=== PATIENT | male | born 1965 | race Caucasian/White ===

== ENCOUNTER → 2022-11-16 | Outpatient (CLI) | payer BC, SELFPAY ==
--- NOTE | 2022-11-16 08:00 | PROSBIL_PTH ---
PATIENT: KARAN WHITE LOC: [facility] U#:[id number] AGE/SX: 57/M ROOM: RE11/16/[address]: Dr. Victor Hugo Antoine MD : 1965 BED: DIS: 11/16/2022 SPEC #: [id number] RECD: 11/16/22 16:32 STATUS: TO BOLIVAR #: [id number] KATELYNN: 11/16/22 08:[address]: Victor Hugo Antoine DEPT: SURGICAL PATHOLOGY RECD BY: Vanessa Ordonez Tissues: A - PROSTATE RIGHT B - PROSTATE RIGHT C - PROSTATE RIGHT D - PROSTATE LEFT E - PROSTATE LEFT F - PROSTATE LEFT Procedures: PROSTATE BX HEADER OPERATION: Prostate biopsy PRE-OP DIAGNOSIS: Elevated PSA TISSUE SUBMITTED: A - Right apex, B - Right mid, C - Right base, D - Left apex, E - Left mid, F - Left base MICROSCOPIC DIAGNOSIS A. Right prostate, apex, core biopsy: Mild chronic inflammation. B. Right prostate, mid, core biopsy: Focal chronic inflammation. C. Right prostate, base, core biopsy: Mild chronic inflammation and focal glandular atrophy. D. Left prostate, apex, core biopsy: Adenocarcinoma. Derrick grade: 6 (3+3) Cores involved: 1 out of 1 core Tissue involved: 80% Greatest tumor length: 8.5 millimeters Perineural invasion: Present, focal E. Left prostate, mid, core biopsy: Minute fragment of benign prostatic tissue. F. Left prostate, base, core biopsy: Mild chronic inflammation and focal glandular atrophy. AM:allyn 11/20/2022 COMMENT Case has been reviewed in consultation with Dr. Loera who concurs with the above diagnosis. IDC:SJ MICROSCOPIC DESCRIPTION Slides are reviewed. GROSS DESCRIPTION A - Received is one container designated prostate, right apex. The specimen consists of two elongated fragments of light hairston-white soft tissue each measuring 1.5 cm in length and 0.1 cm in diameter. The specimen is totally submitted in one cassette. B - Received is one container designated prostate, right mid. The specimen consists of two elongated fragments of light hairston-white soft tissue each measuring 1.2 cm in length and 0.1 cm in diameter. The specimen is totally submitted in one cassette. C - Received is one container designated prostate, right base. The specimen consists of two elongated fragments of light hairston-white soft tissue measuring 1.0 and 1.4 cm in length and 0.1 cm in diameter. The specimen is totally submitted in one cassette. D - Received is one container designated prostate, left apex. The specimen consists of one elongated fragment of light hairston-white soft tissue measuring 1.0 cm in length and 0.1 cm in diameter. The specimen is totally submitted in one cassette. E - Received is one container designated prostate, left mid. The specimen consists of two elongated fragments of light hairston-white soft tissue measuring 0.2 and 0.3 cm in length and <0.1 cm in diameter. The specimen is totally submitted in one cassette. F - Received is one container designated prostate, left base. The specimen consists of two elongated fragments of light hairston-white soft tissue measuring 0.5 and 1.0 cm in length and 0.1 cm in diameter. The specimen is totally submitted in one cassette. / SJ:rg 11/17/2022 TC:0 CPT: 47065 x6
== END | disposition home or self-care (01) ==
LOC: LABSPEC 16:44
PROVIDERS: Referring Provider Urology; Visit Provider Urology
DX: R97.20 Elevated prostate specific antigen [PSA] (principal)
CPT/HCPCS: 88305; G0416

== ENCOUNTER 2023-01-10 11:43 | Observation (INO) | payer BC, SELFPAY ==
--- NOTE | 2023-01-02 07:45 | EKG12_ITS ---
Test Reason : PRE OP Blood Pressure : / mmHG Vent. Rate : 053 BPM Atrial Rate : 053 BPM P-R Int : 164 ms QRS Dur : 120 ms QT Int : 442 ms P-R-T Axes : 069 023 -01 degrees QTc Int : 414 ms Sinus bradycardia Inferior infarct , age undetermined Abnormal ECG Confirmed by JAYMIE RODRIGUEZ ([id number]), advertising editor MARISABEL DOMINGUEZ ([id number]) on 01/08/2023 1:46:35 PM Referred By: Victor Hugo Antoine Confirmed By:JAYMIE RODRIGUEZ
[2023-01-02 08:58] LABS: Hematocrit 44.9 % (40-54); Hemoglobin 15.2 g/dL (13.0-16.5); Mean Corp Hgb Conc 33.9 g/dL (32-36); Mean Corpuscular Hgb 28.8 pg (27.0-32.0); Mean Corpuscular Volume 85.2 fL (80-94); Mean Platelet Vol. 12.6 fl (6.2-12.0); Platelet Count 172 K/mm3 (150-450); RBC Distribution Width CV 12.9 % (11.6-14.6); RBC Distribution Width SD 40.2 fl (35.1-43.9); Red Blood Count 5.27 M/mm3 (4.6-6.2); White Blood Count 4.7 K/mm3 (4.4-11.0)
[2023-01-10] VITALS (13 sets, daily range): BP systolic 100–159; BP diastolic 60–84; PULSE 68–95; RESP 14–18; TEMP 36.3–36.9; O2SAT 94–100; BMI 26.6
[2023-01-10] MEDS: Lactated Ringers 1,000 ML 15 ML IV ×3 (10:19→15:15)
--- NOTE | 2023-01-10 11:45 | PCM.HP.STD ---
HPI - General General Date of Service: 01/10/23 Chief Complaint: Prostate cancer HPI Narrative KARAN WHITE, is a 57 M who presents for radical prostatectomy for prostate cancer PFSH Medical History (Updated 01/10/23 @ 11:[address] Victor Hugo Antoine MD) Non-smoker Wears glasses Home Medications liberty (Zingiber officinalis) 250 mg capsule 250 mg PO DAILY 12/27/22 [History Last Taken Unknown] ginseng 100 mg capsule 100 mg PO DAILY 12/27/22 [History Last Taken Unknown] omega 4-hod-asj-fish oil 1,200 mg (144 mg-216 mg) capsule (Fish Oil) 1 cap PO DAILY 12/27/22 [History Last Taken 12/29/22] ciprofloxacin HCl 500 mg tablet (Cipro) 500 mg PO BID #20 tabs 01/10/23 [Rx Last Taken Unknown] docusate sodium 100 mg capsule (Colace) 100 mg PO BID #20 caps 01/10/23 [Rx Last Taken Unknown] oxycodone 5 mg tablet 5 mg PO Q6H PRN pain 7 days #14 tabs 01/10/23 [Rx Last Taken Unknown] Allergy/AdvReac Type Severity Reaction Status Date / Time No Known Allergies Allergy Verified 01/10/23 10:13 Surgical History (Updated 12/27/22 @ 12:38 by Yoli Fraser) History of colonoscopy Social History Smoking Status: Never smoker Vital Signs Vital Signs Vital Signs: 01/10/23 10:14 01/10/23 10:14 Temperature 98 F Temperature Source Temporal Pulse Rate 77 Respiratory Rate 16 Respiratory Pattern Normal Blood Pressure 159/84 H Blood Pressure Mean 109 Blood Pressure Source Monitor Blood Pressure Position Semi-Fowlers Blood Pressure Location Left Arm Pulse Ox 100 Oxygen Delivery Method Room Air Weight Weight: 89 kg Body Mass Index (BMI) 26.6 Results Lab / Micro Data 01/02/23 07:57
--- NOTE | 2023-01-10 11:46 | PCM.DC ---
Discharge Instructions Diet Discharge Diet: No restrictions, Light diet - advance as tolerated and Soft diet Activity Discharge Activity: Return to Normal Activity Return to work on:: 02/14/23September shower in (days): 1 Lifting Restrictions: No lifting over 15 pounds for 6 weeks Dressing / Incision Catheter: Anglin to leg bag and Anglin to large bag Drain: [place] Follow Up Care Please Follow Up With: Victor Hugo Antoine MD When: call for appt Test Results: Test results from this visit will be discussed in further detail at your follow-up appointment, if applicable. Discharge Plan Admission Primary Reason for Your Visit: Radical Prostatectomy Attending Provider: Victor Hugo Antoine Primary Care Provider: Horacio Clark NP Discharge Orders/Prescriptions Prescriptions: New ciprofloxacin HCl [Cipro] 500 mg tablet 500 mg PO BID Qty: 20 0RF docusate sodium [Colace] 100 mg capsule 100 mg PO BID Qty: 20 0RF oxycodone 5 mg tablet 5 mg PO Q6H PRN (Reason: pain) 7 Days Qty: 14 0RF Continued omega 5-ryw-voj-fish oil [Fish Oil] 1,200 (144-216) mg capsule 1 cap PO DAILY liberty (Zingiber officinalis) 250 mg capsule 250 mg PO DAILY ginseng 100 mg capsule 100 mg PO DAILY Other Ambulatory Orders: 12 Lead EKG (Routine) Timeframe: 20230102 Location: None Selected Ordered By: Dr. Octaviano Walker Referrals / Follow Up: Victor Hugo Antoine MD [Med Staff - Active Staff] - Disposition Disposition (needs filled in before D/C Order can be placed): Home, Self Care
[2023-01-10] MEDS: Cefazolin 2 GM in 0.9% Normal Saline 100 ML IV (11:50)
--- NOTE | 2023-01-10 11:55 | PROST_PTH ---
PATIENT: KARAN WHITE LOC: [facility] U#:[id number] AGE/SX: 57/M ROOM: [facility] [place] RE01/10/[address]: Dr. Victor Hugo Antoine MD : 1965 BED: 1 DIS: 01/11/2023 SPEC #: [id number] RECD: 01/11/23 08:06 STATUS: TO BOLIVAR #: [id number] KATELYNN: 01/10/23 11:[address]: Victor Hugo Antoine DEPT: SURGICAL PATHOLOGY RECD BY: Vanessa Ordonez ENTERED: 01/11/23 10:31 SP TYPE: PROSTATE OTHR DR: Horacio Clark, FACILITY SPECIALIST-C Tissues: A - Fatty tissue of breast B - Lymph node of pelvis, NOS C - Lymph node of pelvis, NOS D - Prostate, NOS Procedures: Surgery Specimen Level IV Surgery Specimen Level V Surgery Specimen Level HEADER OPERATION: Laparoscopic robotic radical prostatectomy PRE-OP DIAGNOSIS: Elevated prostate specific antigen, malignant neoplasm of prostate TISSUE SUBMITTED: A. Fat over prostate, B. Left pelvic lymph node, C. Right pelvic lymph node, D. Prostate MICROSCOPIC DIAGNOSIS A. Fat over prostate: Negative for carcinoma. B. Left pelvic lymph nodes, regional dissection: Four out of four lymph nodes, negative for metastatic carcinoma. C. Right pelvic lymph node, regional dissection: One lymph node, negative for metastatic carcinoma. D. Prostate, radical prostatectomy: Prostatic adenocarcinoma. See cancer summary in the comment section. SJ:allyn 01/15/2023 COMMENT PROSTATE CANCER (RADICAL) SUMMARY: Procedure: Radical Prostatectomy Prostate Size: Weight: 48.9 gm Size: 3.5 cm transversely, 3.5 cm anterior-posteriorly and 4.0 cm craniocaudally Histologic Type: Acinar adenocarcinoma Histologic Grade: Grade group 2 (Derrick score 3+4=7) Intraductal Carcinoma: Present Tumor Quantitation: Estimated percentage of prostate involved by tumor: ~20% Tumor size: Tumor involves both right and left lobe. The tumor in the right lobe is present predominantly in the apical portion and measures 0.7 x 0.7 cm (measured microscopically) and tumor in the left lobe present in the apical and mid portion of the prostate and measures 2.0 x 0.8 cm (measured microscopically). Extraprostatic Extension: Not identified Urinary Bladder Neck Invasion: Not identified Seminal Vesicle Invasion: Not identified Lymphvascular Invasion: Not identified Perineural Invasion: Present and frequent Margins: Involved by invasive carcinoma (nonlimited, 1.0 cm). Linear length of positive margin: 1.0 cm Focality: Unifocal Location of positive margin: Left apical Derrick pattern at positive margin: Derrick pattern 3 Treatment Effect: No known presurgical therapy. Regional Lymph Nodes: Number of lymph nodes involved by carcinoma: 0 Total number of lymph nodes examined: 5 Distant metastasis: Not applicable Additional Pathologic Findings: Chronic inflammation. 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 Clinical History: Please make reference to previous specimen ([id number]) left prostate, apex, core biopsy with diagnosis of adenocarcinoma. PATHOLOGIC STAGE: pT2 pN0 pMx The above summary is in compliance with [employer] [place] [employer] (CAP) Cancer Protocols Checklist and [place] Joint Committee on Cancer (AJCC), Staging Manual, 8th Ed. MICROSCOPIC DESCRIPTION Slides are reviewed. GROSS DESCRIPTION A - Received is one container labeled with the patient's name and designated fat over prostate. The specimen of a piece of adipose tissue measuring 3.0 x 3.5 x 0.5 cm. No mass lesion is identified. Surgical Aides Teacher sections are submitted in one cassette. B - Received is one container labeled with the patient's name and designated left pelvic lymph node. The specimen consists of two pieces of adipose tissue containing possible lymph node that in aggregate measure 5.0 x 3.0 x 1.0 cm. The entire specimen is submitted in four cassettes as follows: 1 - possible bisected lymph node, 2 - two possible lymph nodes, 3 - one possible lymph node, 4 - rest of the specimen. C - Received is one container labeled with the patient's name and designated right pelvic lymph node. The specimen consists of a piece of adipose tissue containing one possible lymph node measuring 4.0 x 2.0 x 1.0 cm. The entire specimen is submitted in two cassettes as follows: 1 - possible bisected lymph node, 2 - rest of the specimen. D - Received in fixative is one container labeled with the patient's name and designated prostate. The specimen consists of a radical prostatectomy specimen consisting of prostate and bilateral seminal vesicles and vas deferens. The specimen weighs 48.9 gm. The prostate measures 3.5 cm transversely, 3.5 cm anterior-posteriorly and 4.0 cm craniocaudally. The right seminal vesicle measures 2.5 x 1.5 x 1.0 cm and right vas deferens measures 2.5 cm in length and 0.5 cm in diameter. The left seminal vesicle measures 3.0 x 1.0 x 1.0 cm and the left vas deferens measures 3.0 cm in length and 0.5 cm in diameter. The prostate is inked as follows: anterior surface - yellow, posterior surface - black, right lateral surface - blue, left lateral surface - green. The bilateral seminal vesicles and vas deferens are inked as follows: Posterior surface bilateral seminal vesicle and vas deferens - black, anterior surface right seminal vesicle and vas deferens - blue and anterior left seminal vesicle and vas deferens - green. Surgical Aides Teacher sections are submitted in 19 cassettes as follows: 1 - right seminal vesicle and vas deferens, 2 - left seminal vesicle and vas deferens, 3 - apical (urethral) margin, enface, 4 - bladder neck margin and basal portion of prostate margin, enface, 6-9 - apical portion prostate, 10-13 - middle portion prostate, 14-19 - basal portion prostate. More than 95% of the prostate is submitted. / SJ:rg 01/12/2023 TC:0 CPT:21498, 12402 x2, 02936
[2023-01-10] MEDS: Bupivacaine Mpf 0.5% 30 ML VIAL (12:00)
--- NOTE | 2023-01-10 14:35 | PCM.OPRPT ---
Report of Operation Date of Procedure: 01/10/23 Pre-Operative Diagnosis: Prostate cancer Post-Operative Diagnosis: Same Surgery/Procedure Performed:: Laparoscopic robotic assisted radical prostatectomy bilateral pelvic lymph node dissection Description of Surgical Findings:: Patient presented to the hospital for treatment of his prostate cancer with radical prostatectomy. In the preoperative setting we discussed the options of management for his prostate cancer including active surveillance, radiation treatments, radioactive seeds, and radical robotic prostatectomy. We discussed the side effects of surgery including the potential to lose erections. We discussed the potential to have bladder control problems with stress incontinence which can be temporary or permanent. We discussed the risk of the surgery including the risk of general anesthetic, risk of bleeding, risk of infection, and risk of formation of hernia either incisional hernia or inguinal hernia. After long discussion with the patient the preoperative setting and also reviewed this in the preop area patient signed the consent form and we proceeded with a radical prostatectomy. Patient was taken back to the operating room he was identified, time out procedure was performed and he was placed supine on the table he underwent general anesthesia with intubation. The abdomen was shaved prepped and draped in usual sterile fashion as well as the penis and testicles. A 16 Macedonian catheter was placed into the bladder with clear return of urine. I then made an incision in the umbilicus and dissected down to the fascia advance a Veress needle into the peritoneal cavity and insufflated the peritoneal cavity with CO2 gas. I then placed a 12 mm trocar above the umbilicus. I then visualized the placement of the rest of the trochars, I placed a right arm robotic trocar, and air seal trocar, a suction port 5 mm trocar. And on the left side I placed 2 robotic arms. Once all the trochars were in placed the patient was put in steep Trendelenburg. And the robot was docked the arms were docked and then I placed the 0 degree camera through the robotic arm and also used a 30 degree camera during certain parts of the case. I used scissors in the right arm, prograsp in the third arm, and a bipolar in the second arm. Initial dissection was to free the sigmoid colon off the lateral wall this was done by meticulously dissecting off the peritoneum and the sigmoid colon off the left lateral wall. This then allowed the prograsp to retract the sigmoid colon out of the pelvis. I then went below the bladder and identified the vas deferens incised the peritoneum over the vas deferens and traced the vas deferens below the bladder to the prostate and identified the right and left vasa deferens. Below behind the vas deferens then the seminal vesicles were identified. I then dissected the seminal vesicle free using pinpoint electrocautery and then we identified the other seminal vesicle and then dissected this using pinpoint electrocautery I then elevated the vas deferens and several vesicles off the prostate and was able to sweep the Denonvilliers' fascia off the prostate posteriorly all the way up to the apex of the prostate. Working laterally I made sure I went as lateral as possible to sweep the Denonilliers' fascia off the posterior aspect of the prostate and worked my way back, I then transected the vas deferens and the left and right side the seminal vesicles were then dissected free. And then I pulled out of the pelvis. At this point the bladder was dropped creating the space of Retzius with the bladder on traction with the fourth arm. Using electrocautery I dissected in the anterior peritoneal fascia and then created the space of Retzius dissecting towards the prostate. The pelvic lymph node dissection was then performed both side. Rhe right pelvic lymph nodes the nodes that were taken on the right side extended from the right iliac artery lateral pelvic sidewall up to the junction of the artery and the lymph nodes and down to the obturator nerve and then also below the pump operator nerve all the lymph nodes were removed during to remove those lymph nodes we used clips and electrocautery to control small blood vessels and also the control lymphatic. I then went to the left side and again did an extensive lymph node dissection starting of the left iliac artery extending the left iliac vein on the lateral sidewall down to the obturator nerve and the left side beyond the pump operator nerve down further behind it cleaning out all the lymphatic tissue all this tissue was sent off as a specimen we use clips and electrocautery during the dissection. At the end we cleaned out all the lymphatic tissue on the right pelvic wall and all the lymphatic tissue in the left pelvic wall. The prostate was then cleaned of the fat over the prostate and the fourth arm was used to retract the bladder and place traction. I then identified the endopelvic fascia that was overlying the prostate on the right side I incised endopelvic fascia and wwept the levator muscles off the prostate all the way to the apex on the right side, I then worked my way anterior to the prostate then transected to the puboprostatic ligament and the underlying dorsal vein complex was not injured. I then went to the other side and identified the endopelvic fascia in the left side incised in a fashion the left side and swept the levator muscles off the prostate on the left side all the way up to the apex the puboprostatic ligament on the left side was then dissected and transected I then freed up the fascia overlying the dorsal vein complex. I then used the prograsp to encircled the dorsal vein complex with the prograsp and then switched over to the right and left needle medical delivery driver and suture ligated the dorsal vein complex above the prograsp. The prograsp was then placed back in the bladder and put back on traction I then identified the junction between the bladder and the prostate and dissected down between the bladder and the prostate untilI came across the catheter we then dissected posteriorly to the bladder and prostate to free the prostate and the bladder off each other and the muscles between the bladder and the prostate was then cauterized to free up the bladder. I then went on top of the prostate and identified the endopelvic fascia on top of the prostate this was incised all the way to the apex and then we swept the endopelvic fascia off the prostate laterally and then identified the plane between endopelvic fascia and the prosthetic pseudocapsule and swept the fascia laterally until reaching the course of the neurovascular bundles and then released the neurovascular bundles off the prostate laterally all the way back in a retrograde fashion back to the junction of the pedicles then the prostate was placed on traction with the fourth arm pulling the prostate laterally identified the pedicle to the prostate between the seminal vesicles and the and the neurovascular bundle and this was taken using sequential small hemolocks. After the pedicle was taken the I then dissected underneath the prostate sweeping the neurovascular bundle off the prostate we able to follow the nice smooth plane between the neurovascular bundle and the pseudocapsule all the way to the apex once this was identified we swept this up all the way up to the apex and there was perfect nerve sparing on the right side. Then went to the left side the prostate identified the endopelvic fascia over the left side of the prostate I incised the endopelvic fascia all the way to the apex and then swept this off laterally I then released the neurovascular bundles on the left side of the prostate sweeping him off the prostate laterally I then elevated the prostate up up with the prostate and traction identified the pedicle to the prostate on the left side and then the pedicles taken with sequential Hem-o-francy clips I then was able to dissected the neurovascular bundle off the left posterior aspect the prostate this was a perfect dissection all the way up on the left side following the pseudocapsule all the way up the left side until we reached the apex of the prostate. After the both the neurovascular bundles has been swept off the posterior to the prostate I then went above and transected the dorsal vein complex there was minimal to no bleeding but then dissected down to the urethra and circumfencial dissected around the urethra I then switched the right and left arm with the needle drivers and I suture-ligated the dorsal vein complex again just to ensure that there was no bleeding from the dorsal vein complex. I then transected through the urethra with scissors and the prostate was then freed and released off the prostate bed and put an Endo Catch bag. At this point the bladder neck was reconstructed and then an anastomosis was performed between the prostate and the bladder with a 3 oh V-Loc stitch in a running fashion starting from the bladder neck at the 6 o'clock position working to the 12 o'clock position with continuous stitches to complete a perfect anastomosis between the bladder and the prostate. I then placed a new catheter into the bladder, an 18 Macedonian table mountain tip catheter flushed the bladder and there was no leakage from the anastomosis I put 10 cc in the balloon and pulled it up pulled back gently. I then ensured that there was no bleeding from the dorsal vein complex no bleeding from the neurovascular bundles FloSeal was placed as necessary once hemostasis was ensured and adequate then I placed the bladder back in position in the pelvis the prostate was exchanged to the camera port I closed the air seal port with a 10 12 Cyrus Casas stitch. And the extracted the prostate through the umbilicus. The robot was undocked all the ports were removed under direct visualization then closed the extraction site with 0 Vicryl with a CT1 needle once the extraction site was closed. I then closed all the incision with subcuticular stitches with 4-0 Monocryl and then bandages were placed on the incisions catheter was flushed to make sure it was draining well there was no clots and it was crystal clear patient's anesthetic was reversed he was extubated and taken back to the PACU in stable condition all the needles and sponges and instruments were accounted for. Blood loss was minimal and the drain was a 18 Macedonian Anglin catheter. No other surgical drain was left. I was present during the entire case. Surgeon: Victor Hugo Antoine Type of Anesthesia: General Estimated Blood Loss (mL): 100 Admit VTE Documentation VTE Present on Admission: No VTE Mechan Device Prophylaxis: SCD's VTE Pharm Prophylaxis ordered?: No
[2023-01-10] MEDS: Ketorolac 15 MG/ML Vial IV ×2 (17:25→23:18)
[2023-01-10] MEDS: 0.9% Normal Saline 1,000 ML 125 ML IV (17:25)
[2023-01-10] MEDS: Ciprofloxacin 400 MG/200 ML BAG 200 MG IV (21:05)
[2023-01-10] MEDS: Docusate Sodium 100 MG Capsule 200 MG PO (21:05)
[2023-01-11 01:21] VITALS: BP 108/63; PULSE 76; RESP 16; TEMP 37.1; O2SAT 96
[2023-01-11] MEDS: 0.9% Normal Saline 1,000 ML 125 ML IV ×2 (01:22→05:15)
[2023-01-11 05:05] VITALS: BP 108/63; PULSE 73; RESP 18; TEMP 36.7; O2SAT 96
[2023-01-11] MEDS: Ketorolac 15 MG/ML Vial IV ×2 (05:39→10:18)
--- NOTE | 2023-01-11 07:42 | PCM.PN.GU ---
Subjective Subjective Status post radical prostatectomy patient is doing well he can go home today with a Anglin catheter to leg bag Objective Data Objective Data Vital Signs: Vital Signs Temp Pulse Resp BP Pulse Ox O2 Del Method 98.1 F 73 18 108/63 96 Room Air 01/11/23 05:05 01/11/23 05:05 01/11/23 05:05 01/11/23 05:05 01/11/23 05:05 01/11/23 05:05 Oxygen Delivery Method Room Air Weight: 89 kg Body Mass Index (BMI) 26.6 Intake & Output: Intake and Output for Last 24 Hours 01/09/23 01/10/23 01/11/23 23:59 23:59 23:59 Intake Total 2535 / 2535 1599.17 / 1599.17 Output Total 400 / 1000 1100 / 1100 Balance 2135 / 1535 499.17 / 499.17 Lab / Micro Data 01/02/23 07:57
[2023-01-11 08:43] VITALS: O2SAT 96
[2023-01-11 08:49] VITALS: BP 118/74; PULSE 73; RESP 18; TEMP 37.1; O2SAT 95
[2023-01-11] MEDS: Docusate Sodium 100 MG Capsule 200 MG PO (08:54)
[2023-01-11] MEDS: Ciprofloxacin 400 MG/200 ML BAG 200 MG IV (10:18)
[2023-01-11] MEDS: 0.9% Saline Lock 10 ML Syringe IV (10:18)
--- NOTE | 2023-01-11 12:15 | PHA.DC.MC.R ---
Pharmacy [facility] Pharmacy Service has performed discharge medication reconciliation and counseling for this patient. The patient was counseled on the following discharge medications and changes in medications for homegoing were reviewed. 1. CIPRO 2. OXYCODONE 3. DOCUSATE The Reason for Use, instructions for use, and potential side effects were reviewed for all new medications. The patient's questions regarding all of their medications were answered. The patient was able to verbally demonstrate an understanding of their discharge medications. The patient's discharge medication list was reviewed for discrepancies and discrepancies were resolved. The patient was counselled by Annette Ca, Juan Luis Candidate Medications at Discharge Home Medications liberty (Zingiber officinalis) 250 mg capsule 250 mg PO DAILY 12/27/22 ginseng 100 mg capsule 100 mg PO DAILY 12/27/22 omega 7-wpd-ctl-fish oil 1,200 mg (144 mg-216 mg) capsule (Fish Oil) 1 cap PO DAILY 12/27/22 ciprofloxacin HCl 500 mg tablet (Cipro) 500 mg PO BID #20 tabs 01/10/23 docusate sodium 100 mg capsule (Colace) 100 mg PO BID #20 caps 01/10/23 oxycodone 5 mg tablet 5 mg PO Q6H PRN pain 7 days #14 tabs 01/10/23
== END 2023-01-11 13:19 | disposition home or self-care (01) ==
LOC: SDC 15:55 → MS3 15:55
PROVIDERS: Anesthesiology; Admitting Provider Urology; PCP Nurse Practitioner Primary Care; Referring Provider Urology; Visit Provider Urology
PROC: 0VT04ZZ Resection of Prostate, Percutaneous Endoscopic Approach (ICD-10-PCS; CPT 55866; principal; 2023-01-10 11:35)
DX: C61 Malignant neoplasm of prostate (principal)
CPT/HCPCS: 55866; 00865; 36415; 85027; 86850; 86900; 86901; 88305; 88307; 88309; 93005; 94668; 96361; 96365; 96366; 96375; 96376; 99221; J7030; J7120; A4216; G0378; J0744; J2405

== ENCOUNTER → 2023-02-26 | Outpatient (CLI) | payer BC, SELFPAY ==
[2023-02-26 17:25] LABS: PSA,Total- Diagnostic 0.02 ng/mL (0.0-4.0)
== END | disposition home or self-care (01) ==
LOC: LAB 15:26
PROVIDERS: PCP Nurse Practitioner Primary Care; Referring Provider Nurse Practitioner; Visit Provider Nurse Practitioner
DX: C61 Malignant neoplasm of prostate (principal)
CPT/HCPCS: 36415; 84153

== ENCOUNTER → 2023-05-28 | Outpatient (CLI) | payer BC, SELFPAY ==
--- OUTSIDE RECORDS SUMMARY | 2023-05-28 12:44 | XMS RPT_ITS | CCD ---
Author Name Unknown Address Formerly [facility], [facility] [place] [address] Organization [facility] Care Team Providers Care Medical Service Technician Name Role Phone Roberto Aguilar Unavailable Unavailable BALTES SUPERVISOR OVENS-FIRE ALARM INSPECTOR, DEONTE Primary Care Physician [phone] ROBERTO AGUILAR Attending Unavailable ROBERTO AGUILAR Primary Care Unavailable BALTES SUPERVISOR OVENS-FIRE ALARM INSPECTOR, DEONTE Attending Unavailabl e BALTES SUPERVISOR OVENS-FIRE ALARM INSPECTOR, DEONTE Primary Care Unavailabl e BALTES SUPERVISOR OVENS-FIRE ALARM INSPECTOR, DEONTE Attending Unavailabl e BALTES SUPERVISOR OVENS-FIRE ALARM INSPECTOR, DEONTE Primary Care Unavailabl e Allergies Allergy Classification Reported Allergen(s) Allergy Type Date of Onset Reaction(s) Facility (1 source) ALLERGIES NOT ON FILE; Translations: [ALLERGIES NOT ON FILE] Propensity to adverse reactions (disorder) [facility] 3 Repository Medications Current Medications Medication Drug Class(es) Dates Sig (Normalized) Sig (Original) aspirin 81 mg delayed release oral tablet (1 source) Platelet Aggregation Inhibitor, Nonsteroidal Anti-inflammatory Drug Start: 10-12-2020 aspirin 81 mg oral delayed release tablet Dose : 81 mg = 1 tab(s), Oral, qDay, PRN just because, # 30 tab(s), 0 Refill(s) Start Date: 10/12/20 Status: Ordered Beta Sitosteril (1 source) Start: 10-13-2020 Beta Sitosteril Beta Sitosteril, Daily, NOW-2000 mg, 0 Refill(s), 104.7 Start Date: 10/13/20 Status: Ordered Billberry & Lutein (1 source) Start: 10-13-2020 Billberry & Lutein Billberry & Lutein, 0 Refill(s), 104.7 Start Date: 10/13/20 Status: Ordered Cinnamon Preparation (1 source) Non-Standardized Food Allergenic Extract Start: 10-13-2020 take 1 tablet by mouth once daily Cinnamon 1000 mg capsule 1 tab(s), Oral, Daily, 0 Refill(s) Start Date: 10/13/20 Status: Ordered Echinacea Preparation (2 sources) Start: 10-13-2020 echinacea Daily, PRN blend, 990 mg, 0 Refill(s) Start Date: 10/13/20 Status: Ordered Completed/Discontinued Medications Medication Drug Class(es) Dates Sig (Normalized) Sig (Original) ascorbic acid 1000 mg oral tablet (1 source) Vitamin C take 2 tablets by mo uth once daily Vitamin C 1000 MG Oral Tablet TAKE 2 TABLET Daily Refills: 0 Active bee pollen 550 mg oral capsule (1 source) Bee Pollen 550 M G Oral Capsule Refills: 0 Active Ginseng CAPS (1 source) Ginseng CAPS CEASAR E 1 CAPSULE Daily 60-120 mg Refills: 0 Active Multiple Vitamins Oral Tablet (1 source) Multiple Vitamin s Oral Tablet Refills: 0 Active Marty 3 500 CAPS (1 source) Marty 3 500 CAPS Refills: 0 Active Super B Complex TABS (1 source) Super B Complex TABS TAKE 1 TABLET DAILY DIRECTED. Refills: 0 Active Problems Active Problems Problem Classification Problem Date Documented Da te Episodic/Chronic Diabetes mellitus without complication (1 source) Prediabetes; Translations: [Other abnormal glucose] Episodic Disorders of lipid metabolism (3 sources) Hyperlipidemia; Translations: [Other and unspecified hyperlipidemia] Onset: 03-30-2023 Chronic Other screening for suspected conditions (not mental disorders or infectious disease) (2 sources) Elevated prostate specific antigen [PSA]; Translations: [ELEVATED PROSTATE SPECIFIC ANTIGEN (PSA)] Onset: 03-30-2023 Episodic Residual codes; unclassified (1 source) History finding; Translations: [Other specified conditions influencing health status] Episodic Unclassified (1 source) Patient encounter status 11-23-2020 Past or Other Problems Problem Classification Problem Date Documented Da te Episodic/Chronic NEGATED: Highlighted row has not occurred!Residual codes; unclassified (1 source) Disease Episodic Results Test Name Value Interpretation Reference Range Facil ity Encounters Encounter Date Encounter Type Care Provider Facility Start: 03-30-2023 End: [facility] Start: 03-30-2023 End: 04-04-2023 Encounter for general adult medical examination without abnormal [facility] Start: 03-27-2023 End: 03-27-2023 ambulatory [facility] Ambulatory Start: 09-16-2022 End: 09-17-2022 ambulatory DEONTE HESS Facility:B Start: 09-16-2022 End: 09-16-2022 Patient encounter procedure DEONTE HESS [facility] Payers Date Payer Category Payer Unknown [id number] 1965 Unknown [id number] 1965 Unknown [id number] Social History Date Type Detail Facility Start: 10-12-2020 Tobacco smoking status Never smoked tobacco (finding) [facility] Sex Assigned At Male [facility] NEGATED: Highlighted row - - [facility] Work Phone: Functional Status Date Assessment Result Facility NEGATED: Highlighted row Functional performance Functional status health issues are not documented Disease [facility] Work Phone: Mental Status Date Assessment Result Facility NEGATED: Highlighted row Cognitive function [Interpretation] Cognitive status health issues are not documented Disease [facility] Work Phone: Evaluation + Plan note Note Date & Type Note Facility Evaluation + Plan note Future Appointments Appointment Date:09/26/2022 07:00:00 AM Scheduled Provider:DEONTE BELLE Location:[facility] Appointment Type:PC Wellness Annual [facility] Hospital course Narrative Note Date & Type Note Facility Hospital course Narrative No data available for this section [facility] Hospital Discharge instructions Note Date & Type Note Facility Hospital Discharge instructions No data available for this section [facility] Instructions Note Date & Type Note Facility -[facility] Work Phone: Progress note Note Date & Type Note Facility Progress note No data available for this section [facility] Summary Purpose Family History No Family History Records Found Mother Name Dates Details Family history of Healthy ad ult Status:Active Father Name Dates Details Family history of diabetes rosmery terrell(V18.0, Z83.3) Status:Active Advance Directives No Advanced Directives Records FoundNo Advanced Directives Records FoundNo Advanced Directives Records Found Additional Source Comments (unrecognized sect ion and content) No Status Records FoundNo Status Records FoundNo Status Records Found INFORMATION SOURCE (unrecogn ized section and content) DATE CREATED AUTHOR AUTHOR'S ORGANIZ ATION 03/28/2023 [facility] DATE CREATED AUTHOR AUTHOR'S ORGANIZ ATION 04/09/2023 [facility] ([place]) Patient Care team informatio n (unrecognized section and content) Care Team Personnel Name: DEONTE BELLE APRN-DIEGO Position: P4 Advanced Process Design Engineer Member Role: Primary Care Physician Address: Address: [address] [facility] [address] Care Team Related Persons Name: CHRISTOPHER JACOBO FOR RECORDS PERTAINING TO PATIENTS WHO ARE OR HAVE BEEN ENROLLED IN A CHEMICAL DEPENDENCY/SUBSTANCEABUSE PROGRAM, SOME INFORMATION MAY BE OMITTED. This clinical summary was aggregated from multiple sources. Caution should be exercised in using it in the provision of clinical care. This summary normalizes information from multiple sources, and as a consequence, information in this document may materially change the coding, format and clinical context of patient data. In addition, data may be omitted in some cases. CLINICAL DECISIONS SHOULD BE BASED ON THE PRIMARY CLINICAL RECORDS. [facility]. provides no warranty or guarantee of the accuracy or completeness of information in this document.
[2023-05-28 13:49] LABS: PSA,Total- Diagnostic 0.02 ng/mL (0.0-4.0)
== END | disposition home or self-care (01) ==
LOC: LAB 12:35
PROVIDERS: PCP Nurse Practitioner Primary Care; Referring Provider Urology; Visit Provider Urology
DX: C61 Malignant neoplasm of prostate (principal)
CPT/HCPCS: 36415; 84153

== ENCOUNTER → 2023-09-25 | Outpatient (CLI) | payer BC, SELFPAY ==
[2023-09-25 09:19] LABS: PSA,Total- Diagnostic 0.04 ng/mL (0.0-4.0)
== END | disposition home or self-care (01) ==
LOC: LAB 07:55
PROVIDERS: PCP Nurse Practitioner Primary Care; Referring Provider Urology; Visit Provider Urology
DX: C61 Malignant neoplasm of prostate (principal)
CPT/HCPCS: 36415; 84153

== ENCOUNTER → 2024-03-28 | Outpatient (CLI) | payer BC, SELFPAY ==
[2024-03-28 10:51] LABS: PSA,Total- Diagnostic 0.13 ng/mL (0.0-4.0)
== END | disposition home or self-care (01) ==
LOC: LAB 08:52
PROVIDERS: PCP Nurse Practitioner Primary Care; Referring Provider Nurse Practitioner; Visit Provider Nurse Practitioner
DX: C61 Malignant neoplasm of prostate (principal)
CPT/HCPCS: 36415; 84153

== ENCOUNTER → 2024-05-08 | Outpatient (CLI) | payer BC, SELFPAY ==
--- NOTE | 2024-05-08 12:56 | MRI_ITS ---
STUDY: MR PROSTATE GLAND/ PELVIS WITH T WITHOUT CONTRAST REASON FOR EXAM: Male, 59 years old. eval for prostate cancer recurrence -- positive apical margin at surgery, H/O PROSTATECTOMY TECHNIQUE: Standardized fat and water weighted pulse sequences were obtained in all 3 orthogonal planes, pre-and post contrast administration. IV 17cc clariscan was administered for the contrast portion of the examination. COMPARISON: PET/CT exam dated April 15, 2024. FINDINGS: Prostate gland volume/size: Prior prostatectomy. No visualized recurrent mass or cyst or fluid collection or lymphadenopathy in the surgical bed or adjacent pelvic regions. Seminal vesicles: Normal fluid signal bilaterally. Pelvic sidewall lymphadenopathy: None demonstrated. Bony structures: No lytic or blastic or aggressive process. No demonstrated enhancing lesions. No bone marrow edema or infiltrative marrow replacement process is seen. No visualized pathologic fractures. Bladder: No demonstrated masses or filling defects/stones. Normal urinary bladder. Normal visualized small intestine. Normal visualized colon. Vessels: No significant or large aneurysm is demonstrated. Normal osseous structures. Normal abdominal wall. Small bilateral fat-containing inguinal hernias are present. MRI/Pelvis W/WO Contrast IMPRESSION: 1. No demonstrated recurrent mass or cyst or fluid collection or lymphadenopathy in the prostate surgical bed or pelvic regions. 2. PI-RADS 1: very low (clinically significant cancer is highly unlikely to be present) 3. Prostate PET/CT exam can also be performed to determine if there is viable malignant neoplasm in the prostate gland. Prostate MRI reference: 15-30% of prostate cancers can go undetected on Prostate MRI. Monitoring and assessment by Primary physician, Urology, and oncology service recommended and treated clnically. (Cancers (Basel). 2022May 02;15(90):1543. doi: [id number] Prostate Cancers Invisible on Multiparametric MRI: Pathologic Features in Correlation with Whole-Mount Prostatectomy Zack Maza 1,2,*, Kin Andrews 3, Divine Arriaga 1,2, Caridad Helms 1,2, Gutierrez Mathew 4, Florentino Ricardo 5, Syeda Moreira 6, Ankit Singh 1,2, Slime Montalvo 1,2) Reference information: Normal prostate tissue Benign prostatic hypertrophy cancer/tumor - low signal peripheral , transitional, and central zones malignancy appears as bright on DWI and low signal on ADC map Prostate imaging-reporting and data system (PI-RADS) PI-RADS 1: very low (clinically significant cancer is highly unlikely to be present) PI-RADS 2: low (clinically significant cancer is unlikely to be present) PI-RADS 3: intermediate (the presence of clinically significant cancer is equivocal) PI-RADS 4: high (clinically significant cancer is likely to be present) PI-RADS 5: very high (clinically significant cancer is highly likely to be present) PI-RADS X: component of exam technically inadequate or not performed Prostate malignancy distribution: Peripheral zone: 70-80% Transitional zone: 10-20% Central zone: 5% or less Electronically Signed: August Sanderson MD at 9:23 EST ,
== END | disposition home or self-care (01) ==
LOC: MRI 12:43
PROVIDERS: PCP Nurse Practitioner Primary Care; Referring Provider Student in an Organized Health Care Education/Training Program; Visit Provider Student in an Organized Health Care Education/Training Program
DX: C61 Malignant neoplasm of prostate (principal); Z19.1 Hormone sensitive malignancy status; R97.21 Rising PSA following treatment for malignant neoplasm of prostate
CPT/HCPCS: 72197; A9575; A4216

== ENCOUNTER → 2024-08-18 | Outpatient (CLI) | payer BC, SELFPAY ==
[2024-08-18 13:21] LABS: PSA,Total- Diagnostic 0.04 ng/mL (0.00-4.00)
== END | disposition home or self-care (01) ==
LOC: LAB 12:04
PROVIDERS: PCP Nurse Practitioner Primary Care; Referring Provider Urology; Visit Provider Urology
DX: C61 Malignant neoplasm of prostate (principal)
CPT/HCPCS: 36415; 84153

== ENCOUNTER → 2024-11-14 | Outpatient (CLI) | payer BC, SELFPAY ==
[2024-11-14 11:35] LABS: PSA,Total- Diagnostic < 0.02 ng/mL (0.00-4.00)
--- OUTSIDE RECORDS SUMMARY | 2024-11-14 16:31 | XMS RPT_ITS | CCD ---
Author Organization [facility] Care Team Providers Care Case Managers Name Role Phone Jaydon Aguilar Unavailable Unavailable BALTES RN BUILDING-METAL MINER BLASTING, DEONTE Primary Care Physician [phone] Baltes MULTI SITE LEASING CONSULTANT, MULTI SITE LEASING CONSULTANT-C Deonte Primary Care Provider [phone] Dr. Michelle Rizzo Attending Provider Dr. Victor Hugo Antoine Referring Provider JAYDON AGUILAR Attending Unavailable JAYDON AGUILAR Primary Care Unavailable BALTES RN BUILDING-METAL MINER BLASTING, DEONTE Attending Unavailabl e BALTES RN BUILDING-METAL MINER BLASTING, DEONTE Primary Care Unavailabl e BALTES RN BUILDING-METAL MINER BLASTING, DEONTE Attending Unavailabl e BALTES RN BUILDING-METAL MINER BLASTING, DEONTE Primary Care Unavailabl e BALTES RN BUILDING-METAL MINER BLASTING, DEONTE Attending Unavailabl e BALTES RN BUILDING-METAL MINER BLASTING, DEONTE Primary Care Unavailabl e Baltes MULTI SITE LEASING CONSULTANT-C, Deonte Primary Care Provider [phone] Dr. Adis Bush DO Attending Provider Dr. Adis Bush DO Referring Provider Dr. Victor Hugo Antoine MD Attending Provider Dr. Victor Hugo Antoine MD Referring Provider Baltes MULTI SITE LEASING CONSULTANT, Deonte Primary Care Unavailable Ruben Bushe Attending Unavailable Eleazar Adis Referring Unavailable Baltes MULTI SITE LEASING CONSULTANT, Deonte Primary Care Unavailable Adis Bush Attending Unavailable Ruben Bushe Referring Unavailable Baltes MULTI SITE LEASING CONSULTANT, Deonte Primary Care Unavailable Adis Bush Attending Unavailable Eleazar Adis Referring Unavailable Baltes MULTI SITE LEASING CONSULTANT, Deonte Primary Care Unavailable Ruben Bushe Referring Unavailable Ruben Bushe Attending Unavailable Baltes MULTI SITE LEASING CONSULTANT, Deonte Primary Care Unavailable Madie Yen Attending Unavailable Madie Yen Referring Unavailable Baltes MULTI SITE LEASING CONSULTANT, Deonte Primary Care Unavailable Eleazar, Adis Referring Unavailable Eleazar, Adis Attending Unavailable Baltes MULTI SITE LEASING CONSULTANT, Libby Primary Care Unavailable Eleazar, Adis Referring Unavailable Eleazar, Adis Attending Unavailable Baltes MULTI SITE LEASING CONSULTANT, Libby Primary Care Unavailable Eleazar, Adis Referring Unavailable Eleazar, Dais Attending Unavailable Baltes MULTI SITE LEASING CONSULTANT, Libby Primary Care Unavailable Eleazar, Adis Attending Unavailable Eleazar, Adis Referring Unavailable Elina, Srini Referring Unavailable Baltes MULTI SITE LEASING CONSULTANT, Libby Primary Care Unavailable Eleazar, Adis Attending Unavailable Baltes MULTI SITE LEASING CONSULTANT, Libby Primary Care Unavailable Eleazar, Adis Referring Unavailable Eleazar, Adsi Attending Unavailable Baltes MULTI SITE LEASING CONSULTANT, Libby Primary Care Unavailable Eleazar, Adis Referring Unavailable Eleazar, Adis Attending Unavailable Baltes MULTI SITE LEASING CONSULTANT, Libby Primary Care Unavailable Eleazar, Adis Referring Unavailable Eleazar, Adis Attending Unavailable Elina, Srini Referring Unavailable Baltes MULTI SITE LEASING CONSULTANT, Libby Primary Care Unavailable Elina, Srini Attending Unavailable Elina, Srini Referring Unavailable Baltes MULTI SITE LEASING CONSULTANT, Libby Primary Care Unavailable Elina, Srini Attending Unavailable Allergies Allergy Classification Reported Allergen(s) Allergy Type Date of Onset Reaction(s) Facility (1 source) ALLERGIES NOT ON FILE; Translations: [ALLERGIES NOT ON FILE] Propensity to adverse reactions (disorder) [facility] 3 Repository Medications Current Medications Medication Drug Class(es) Dates Sig (Normalized) Sig (Original) aspirin 81 mg delayed release oral tablet (1 source) Platelet Aggregation Inhibitor, Nonsteroidal Anti-inflammatory Drug Start: 10-12-2020 aspirin 81 mg oral delayed release tablet Dose : 81 mg = 1 tab(s), Oral, qDay, PRN just because, # 30 tab(s), 0 Refill(s) Start Date: 10/12/20 Status: Ordered Beta Sitosteril (2 sources) Start: 10-13-2020 Beta Sitosteril Beta Sitosteril, Daily, NOW-2000 mg, 0 Refill(s), 104.7 Start Date: 10/13/20 Status: Ordered Repeat number: 1 Start: 10-13-2020 Beta Sitosteri l Beta Sitosteril, Daily, NOW-2000 mg, 0 Refill(s), 104.7 Start Date: 10/13/20 Status: Ordered Billberry & Lutein (2 sources) Start: 10-13-2020 Billberry & Mayi tein Billberry & Lutein, 0 Refill(s), 104.7 Start Date: 10/13/20 Status: Ordered Repeat number: 1 Start: 10-13-2020 Billberry & Mayi tein Billberry & Lutein, 0 Refill(s), 104.7 Start Date: 10/13/20 Status: Ordered Cinnamon Preparation (2 sources) Non-Standardized Food Allergenic Extract Start: 10-13-2020 take 1 tablet by mouth once daily Cinnamon 1000 mg capsule 1 tab(s), Oral, Daily, 0 Refill(s) Start Date: 10/13/20 Status: Ordered Repeat number: 1 Start: 10-13-2020 take 1 tablet by sanchez th once daily Cinnamon 1000 mg capsule 1 tab(s), Oral, Daily, 0 Refill(s) Start Date: 10/13/20 Status: Ordered Echinacea Preparation (3 sources) Start: 10-13-2020 echinacea Eda y, PRN blend, 990 mg, 0 Refill(s) Start Date: 10/13/20 Status: Ordered Repeat number: 1 Start: 10-13-2020 echinacea Eda y, PRN blend, 990 mg, 0 Refill(s) Start Date: 10/13/20 Status: Ordered Echinacea CAPS T SCARLETT 1 CAPSULE Daily 750 mg Refills: 0 Active Fish Oils (2 sources) Start: 10-13-2020 omega-3 fish o il 1000 mg oral capsule Dose : 2,000 mg = 2 cap(s), Oral, qDay, 0 Refill(s) Start Date: 10/13/20 Status: Ordered Repeat number: 1 Start: 10-13-2020 omega-3 fish o il 1000 mg oral capsule Dose : 2,000 mg = 2 cap(s), Oral, qDay, 0 Refill(s) Start Date: 10/13/20 Status: Ordered Garlic preparation (2 sources) Non-Standardized Food Allergenic Extract Start: 10-13-2020 take 1 tablet by mouth once daily garlic oral tablet Dose = 1 tab(s), Oral, Daily, 2000 mg, 0 Refill(s) Start Date: 10/13/20 Status: Ordered Repeat number: 1 Start: 10-13-2020 take 1 tablet by sanchez th once daily garlic oral tablet Dose = 1 tab(s), Oral, Daily, 2000 mg, 0 Refill(s) Start Date: 10/13/20 Status: Ordered liberty root 250 mg oral capsule (6 sources) Start: 12-27-2022 take 1 capsule by mouth once daily Liberty (Zingiber Officinalis) 250 mg capsule Active 250 mg PO DAILY December 27, 2022 12:00am Start: 10-13-2020 take 1 capsule by mo uth once daily Liberty Root oral capsule Daily, 1100 mg, 0 Refill(s) Start Date: 10/13/20 Status: Ordered Repeat number: 1 Start: 10-13-2020 take 1 capsule by mo uth once daily Liberty Root oral capsule Daily, 1100 mg, 0 Refill(s) Start Date: 10/13/20 Status: Ordered ginkgo biloba extract 60 mg oral capsule (2 sources) Start: 10-13-2020 Ginkgo Biloba 60 mg oral capsule Dose : 120 mg = 2 cap(s), Oral, Daily, 0 Refill(s) Start Date: 10/13/20 Status: Ordered Repeat number: 1 Ginseng (4 sources) Start: 12-27-2022 take 1 capsule by mouth once daily Ginseng 100 mg capsule Active 100 mg PO DAILY December 27, 2022 12:00am Start: 12-27-2022 take 100 mg by mouth once eda y Ginseng Active 100 MG PO DAILY December 26, 2022 11:00pm Start: 12-27-2022 take 100 mg by mouth once eda y Ginseng Active 100 MG PO DAILY December 27, 2022 12:00am Green Tea Fat Burner (2 sources) Start: 10-13-2020 Green Tea Fat Burner Green Tea Fat Burner, Daily, 400 mg, 0 Refill(s), 104.7 Start Date: 10/13/20 Status: Ordered Repeat number: 1 Start: 10-13-2020 Green Tea Fat Burner Green Tea Fat Burner, Daily, 400 mg, 0 Refill(s), 104.7 Start Date: 10/13/20 Status: Ordered Arabic Panax Ginseng (2 sources) Start: 10-13-2020 Arabic Panax G inseng Arabic Panax Ginseng, Daily, 1000 mg, 0 Refill(s), 104.7 Start Date: 10/13/20 Status: Ordered Repeat number: 1 Start: 10-13-2020 Arabic Panax G inseng Arabic Panax Ginseng, Daily, 1000 mg, 0 Refill(s), 104.7 Start Date: 10/13/20 Status: Ordered Olivia (1 source) Start: 10-13-2020 Olivia Baker, Analy ly, 1000 mg, 0 Refill(s), 104.7 Start Date: 10/13/20 Status: Ordered Misc Medication (1 source) Start: 10-12-2020 Misc Medicatio n Bee pollen in cereal, 0 Refill(s) Start Date: 10/12/20 Status: Ordered Multivitamin preparation (2 sources) Start: 10-13-2020 take 1 tablet by mouth once daily Multivitamin Dose = 1 tab(s), Oral, Daily, 0 Refill(s) Start Date: 10/13/20 Status: Ordered Repeat number: 1 Start: 10-13-2020 take 1 tablet by sanchez once daily Multivitamin Dose = 1 tab(s), Oral, Daily, 0 Refill(s) Start Date: 10/13/20 Status: Ordered Baker 6-Jwd-Dyy-Fish Oil (Fi sh Oil) 1,200 (144-216) mg capsule (4 sources) Start: 12-27-2022 Baker 3-Dha-Ep a-Fish Oil (Fish Oil) 1,200 (144-216) mg capsule Active 1 NMA PO DAILY December 27, 2022 12:00am Start: 12-27-2022 take 1 capsule by [facility] once daily Baker 7-Dos-Cbb-Fish Oil (Fish Oil) 1,200 (144-216) mg capsule Active 1 CAP PO DAILY December 26, 2022 11:00pm Start: 12-27-2022 take 1 capsule by mo ut once daily Baker 3-Xnw-Rnf-Fish Oil (Fish Oil) 1,200 (144-216) mg capsule Active 1 CAP PO DAILY December 27, 2022 12:00am Prostate HeLTH (1 source) Start: 10-13-2020 Prostate HeLTH Prostate HeLTH, Daily, 0 Refill(s), 104.7 Start Date: 10/13/20 Status: Ordered selenium 200 mcg oral tablet (1 source) Start: 10-13-2020 selenium 200 mcg oral tablet Dose : 200 mcg = 1 tab(s), Oral, Daily, 0 Refill(s) Start Date: 10/13/20 Status: Ordered sildenafil 20 mg oral tablet (1 source) Phosphodiesterase 5 Inhibitor Start: 04-04-2024 take 1 tablet by mouth every four to six hours Sildenafil (Pulm.Hypertensi on) 20 mg tablet Active 20 mg PO THREE TIMES A DAY April 04, 2024 1:00am administer doses at least 4-6 hours apart Super B Complex oral tablet (2 sources) Start: 10-13-2020 take 1 tablet by mouth once daily Super B Complex oral tablet Dose = 1 tab(s), Oral, Daily, 0 Refill(s) Start Date: 10/13/20 Status: Ordered Repeat number: 1 Start: 10-13-2020 take 1 tablet by sanchez th once daily Super B Complex oral tablet Dose = 1 tab(s), Oral, Daily, 0 Refill(s) Start Date: 10/13/20 Status: Ordered Vitamin C 1000 mg oral table t (2 sources) Start: 10-13-2020 Vitamin C 1000 mg oral tablet Dose : 2,000 mg = 2 tab(s), Oral, qDay, 0 Refill(s) Start Date: 10/13/20 Status: Ordered Repeat number: 1 Start: 10-13-2020 Vitamin C 1000 mg oral tablet Dose : 2,000 mg = 2 tab(s), Oral, qDay, 0 Refill(s) Start Date: 10/13/20 Status: Ordered zinc gluconate 30 mg oral tablet (2 sources) Start: 10-13-2020 zinc (as gluco tana) 30 mg oral tablet Dose : 30 mg = 1 tab(s), Oral, qDay, 0 Refill(s) Start Date: 10/13/20 Status: Ordered Repeat number: 1 Completed/Discontinued Medications Medication Drug Class(es) Dates Sig (Normalized) Sig (Original) ascorbic acid 1000 mg oral tablet (1 source) Vitamin C take 2 tablets by mouth once daily Vitamin C 1000 MG Oral Tablet TAKE 2 TABLET Daily Refills: 0 Active bee pollen 550 mg oral capsule (1 source) Bee Pollen 550 M G Oral Capsule Refills: 0 Active ciprofloxacin 500 mg oral tablet (4 sources) Quinolone Antimicrobial Start: 01-10-2023 End: 04-04-2024 take 1 tablet by mouth twice daily Ciprofloxacin Hcl (Cipro) 500 mg tablet Discontinued 500 mg PO TWICE A DAY January 10, 2023 12:00am April 04, 2024 12:38pm docusate sodium 100 mg oral capsule (4 sources) Start: 01-10-2023 End: 04-07-2024 take 1 capsule by mouth twice daily Docusate Sodium (Colace) 100 mg capsule Discontinued 100 mg PO TWICE A DAY January 10, 2023 12:00am April 07, 2024 10:59am Ginseng CAPS (1 source) Ginseng CAPS CEASAR E 1 CAPSULE Daily 60-120 mg Refills: 0 Active Multiple Vitamins Oral Tablet (1 source) Multiple Vitamin s Oral Tablet Refills: 0 Active Baker 3 500 CAPS (1 source) Baker 3 500 CAPS Refills: 0 Active oxyCODONE hydrochloride 5 mg oral tablet (4 sources) Opioid Agonist Start: 01-10-2023 End: 04-07-2024 take 1 tablet by mouth every six hours as needed for pain Oxycodone 5 mg tablet Discontinued 5 mg PO EVERY 6 HOURS as needed for pain 14 January 10, 2023 April 07, 2024 10:59am Super B Complex TABS (1 source) Super B Complex TABS TAKE 1 TABLET DAILY DIRECTED. Refills: 0 Active Problems Active Problems Problem Classification Problem Date Documented Da te Episodic/Chronic Cancer of prostate (14 sources) Malignant tumor of prostate; Translations: [Malignant neoplasm of prostate] Onset: 06-12-2024 01-10-2023 Chronic Diabetes mellitus without complication (1 source) Prediabetes; Translations: [Other abnormal glucose] Episodic Disorders of lipid metabolism (4 sources) Hyperlipidemia; Translations: [Other and unspecified hyperlipidemia] Onset: 03-30-2023 Chronic Other screening for suspected conditions (not mental disorders or infectious disease) (7 sources) Elevated prostate specific antigen [PSA]; Translations: [Raised prostate specific antigen] Onset: 03-30-2023 Episodic Residual codes; unclassified (1 source) History finding; Translations: [Other specified conditions influencing health status] Episodic Residual codes; unclassified (2 sources) Hormone sensitive malignancy status; Translations: [Hormone sensitive malignancy status] Onset: 06-09-2024 Episodic Unclassified (3 sources) Patient encounter status 11-23-2020 Past or Other Problems Problem Classification Problem Date Documented Da te Episodic/Chronic NEGATED: Highlighted row has not occurred!Residual codes; unclassified (1 source) Disease Episodic Results Test Name Value Interpretation Reference Range Facility Diagnostic total prostate sp ecific antigen (PSA) measurementOrdered By: Victor Hugo Antoine on 08-18-2024 Prostate Specific Antigen Total 0.04 ng/mL 0.00-4.00 [facility] Comment on above: This test was perfor med using the [employer] tPSA method. Measured values of a patient sample can vary depending on the testing procedure used. PSA values determined on patient samples by different testing procedures cannot be used interchangeably. If there is a change in PSA assays while monitoring therapy, sequential testing should be performed to confirm baseline values. PSA,Total- [employer] 07-21 PSA, DIAGNOSTIC 0.04 ng/mL Normal 0.00-4.00 [facility] Comment on above: Result Comment: This test was performed using the [employer] tPSA method. Measured values of a patient??sample can vary depending on the testing procedure used. PSA values determined on patient samples by different testing procedures cannot be used interchangeably. If there is a change in PSA assays while monitoring therapy, sequential testing should be performed to confirm baseline values. Performed By: #### L [phone] #### [facility] [address] [facility]. [place], [place], [address] Radiation Oncology Visiton 0 07-24-2024 Radiation Oncology Visit [facility] [address] 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 Oncologic History: 11/16/2022: Patient completed TRUS guided prostate biopsy.??? Pathology demonstrated [place] 3+3 adenocarcinoma involving about 80% of 1/1 core in the left prostate apex.??? All remaining biopsies were negative. 01/10/2023: Patient completed laparoscopic robotic radical prostatectomy.??? Pathology demonstrated [place] 3+4 adenocarcinoma involving about 20% of the prostate with tumor involving both lobes, and the right lobe it is predominantly apical in location and within the left lobe is both apical and mid and location.??? No extraprostatic extension, bladder neck invasion, seminal vesicle invasion are noted.??? There is present and frequent perineural invasion.??? There is involved left apical margin measuring about 1 cm.??? 5 regional lymph nodes were obtained and none contained metastatic disease.??? pT2 pN0 Radiation Treatment History: None The patient completed a course of external beam radiotherapy in our department. This treatment was delivered for curative intent. Treatment was given according to the following parameters: KARAN WHITE received salvage radiation therapy consisting of 6800 cGy delivered in 34 fractions to the prostate fossa only. He was treated with a VMAT plan using 10 MV photons. The patient did not receive concurrent chemotherapy/ADT. Date of First Treatment: 06/09/2024 Date of Last Treatment: 07/24/2024 Total Elapsed Days (including weekend and holidays): 45 Missed Treatments: none Response and Tolerance: The patient tolerated this course of radiotherapy well overall. The following radiation related toxicities developed during the course of radiation therapy: * Grade 1 fatigue Total weight change during therapy: N/A Disposition: The patient tolerated the planned course of radiation therapy well without unexpected toxicity in an appropriate time course. I reviewed management of potential toxicities and discussed expected timing for toxicity resolution. I will have KARAN follow-up within the first 3 months. KARAN will maintain follow up with all other providers, he has a visit with urology on 08/19 and wanted to wait until November to return to see us. KARAN was instructed to call with any further questions or concerns in the interim. If we can provide any further information on this patient's course of care, please do not hesitate to ask. We would like to thank you very much for allowing us to participate in the care of this patient. Sincerely, Adis Bush DO, MS [employer]rentice [employer], Department of Radiation Oncology [facility] 07/24/24 0841 Date Adis Packston DO Whitigner Signature: Date (if applicable) CC: ROSELYN Belle; Dr. Victor Hugo Antoine MD Normal [facility] Radiation Oncology Visit [facility] [address] [place] [address] OFFICE VISIT Date of Service: 07/24/24806 MR#: [id number] Acct: [id number] Name: KARAN WHITE Rep #: [id number] 6 : 1965 From: Adis Bush DO Age/Sex: 59/M Location: [facility] Status: Signed Intake Vital Signs 04/07/24 10:01 07/24/24 08:11 Height 6 ft 6 ft Weight: 192 lb 4 oz BMI 26.0 BP 151/88 H Blood Pressure Location Rt brachial Position Sitting Respiration 18 Pulse 54 L Pulse Source Monitor Temp 96.4 F L Temperature Source Temporal Artery Pulse Oximetry (%) 100 Oxygen Delivery Method room air Intake Visit Reasons: OTV Is patient in pain?: No Allergies No Known Allergies Allergy (Verified 07/24/24 08:11) Medications ???Medication ???Instructions ???Recorded ???Confirmed ???Type liberty (Zingiber officinalis) 250 250 mg PO DAILY 12/27/22 07/24/24 History mg capsule ginseng 100 mg capsule 100 mg PO DAILY 12/27/22 07/24/24 History omega 9-occ-fqr-fish oil 1,200 mg 1 cap PO DAILY 12/27/22 07/24/24 History (144 mg-216 mg) capsule (Fish Oil) sildenafil (pulm.hypertension) 20 20 mg PO TID 04/04/24 07/24/24 Hi story mg tablet PFSH PFSH Medical History Erectile dysfunction Elevated PSA Malignant neoplasm of prostate Wears glasses Non-smoker Home Medications ???Medication ???Instructions ???Recorded ???Last Taken ???Type liberty (Zingiber officinalis) 250 250 mg PO DAILY 12/27/22 Unknown History mg capsule ginseng 100 mg capsule 100 mg PO DAILY 12/27/22 Unknown H istory omega 4-mqp-lsg-fish oil 1,200 mg 1 cap PO DAILY 12/27/22 12/29/22 History (144 mg-216 mg) capsule (Fish Oil) sildenafil (pulm.hypertension) 20 20 mg PO TID 04/04/24 Unknown His tory mg tablet Allergy/AdvReac Type Severity Reaction Status Date / Time No Known Allergies Allergy Verified 07/24/24 08:11 Surgical History History of prostatectomy History of prostate biopsy History of sentinel lymphadenectomy History of colonoscopy Social History Smoking Status: Never smoker alcohol intake: never substance use type: does not use Diagnosis: Karan White is a 59-year-old male diagnosed with 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 Plan: Plan was made to complete salvage radiation therapy consisting of 6800 cGy delivered in 34 fractions to the prostate fossa only. Treatment Data: Treatment Site: Prostate Fossa Current total dose/Total dose planned: 6800 cGy / 6800 cGy Fraction number: Chemotherapy: none, no ADT Subjective: Pain: 0 / 10 Fatigue: mild Skin: no erythema, rash, desquamation GI: no diarrhea/constipation. No rectal pain or bleeding. No bloating or increased gas : no increase urinary symptoms. No dysuria or hematuria Objective: Weight: 192 lbs 4 oz Physical Exam: Gen: NAD Skin: no erythema, rash, desquamation. Labs: None Assessment Plan Assessment/Plan (1) Biochemically recurrent castration-sensitive adenocarcinoma of prostate: PLAN: Plan Assessment: Tolerated treatment well overall.??? I reviewed and approved all treatment associated imaging. Fatigue, mild Plan: Completed treatment as planned.??? I have reviewed potential treatment associated toxicities as well as timing for resolution and management. Follow up in about one month or sooner if needed. Thank you for allowing me to participate in the management and care of your patient. If I may answer any questions in the interim, please do not hesitate to contact me at any time. Adis Bush DO, MS [employer]ice [employer], Department of Radiation Oncology [facility] Coding Level of Care Code Radiation Tx Management x5 Diagnoses Biochemically recurrent castration-sensitive adenocarcinoma of prostate C61; R97.21; Z19.1 07/24/24830 Date [facility]: Date (if applicable) CC: Normal [facility] Radiation Oncology Visiton 0 07-17-2024 Radiation Oncology Visit [facility] [address] [place] [address] OFFICE VISIT Date of Service: 07/17/24804 MR#: [id number] Acct: [id number] Name: KARAN WHITE Rep #: [id number] 1 : 1965 From: Adis Bush DO Age/Sex: 59/M Location: [facility] Status: Signed Intake Vital Signs 04/07/24 10:01 07/17/24 08:09 Height 6 ft 6 ft Weight: 189 lb 1 oz BMI 25.6 BP 137/80 H Blood Pressure Location Rt brachial Position Sitting Respiration 18 Pulse 55 L Pulse Source Monitor Temp 96.8 F L Temperature Source Temporal Artery Pulse Oximetry (%) 100 Oxygen Delivery Method room air Intake Visit Reasons: OTV Is patient in pain?: No Allergies No Known Allergies Allergy (Verified 07/17/24 08:09) Medications ???Medication ???Instructions ???Recorded ???Confirmed ???Type liberty (Zingiber officinalis) 250 250 mg PO DAILY 12/27/22 07/17/24 History mg capsule ginseng 100 mg capsule 100 mg PO DAILY 12/27/22 07/17/24 History omega 3-khp-ytf-fish oil 1,200 mg 1 cap PO DAILY 12/27/22 07/17/24 History (144 mg-216 mg) capsule (Fish Oil) sildenafil (pulm.hypertension) 20 20 mg PO TID 04/04/24 07/17/24 Hi story mg tablet PFSH PFSH Medical History Erectile dysfunction Elevated PSA Malignant neoplasm of prostate Wears glasses Non-smoker Home Medications ???Medication ???Instructions ???Recorded ???Last Taken ???Type liberty (Zingiber officinalis) 250 250 mg PO DAILY 12/27/22 Unknown History mg capsule ginseng 100 mg capsule 100 mg PO DAILY 12/27/22 Unknown H istory omega 2-lcz-vuo-fish oil 1,200 mg 1 cap PO DAILY 12/27/22 12/29/22 History (144 mg-216 mg) capsule (Fish Oil) sildenafil (pulm.hypertension) 20 20 mg PO TID 04/04/24 Unknown His tory mg tablet Allergy/AdvReac Type Severity Reaction Status Date / Time No Known Allergies Allergy Verified 07/17/24 08:09 Surgical History History of prostatectomy History of prostate biopsy History of sentinel lymphadenectomy History of colonoscopy Social History Smoking Status: Never smoker alcohol intake: never substance use type: does not use Diagnosis: Karan White is a 59-year-old male diagnosed with 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 Plan: Plan was made to complete salvage radiation therapy consisting of 6800 cGy delivered in 34 fractions to the prostate fossa only. Treatment Data: Treatment Site: Prostate Fossa Current total dose/Total dose planned: 5800 cGy / 6800 cGy Fraction number: Chemotherapy: none, no ADT Subjective: Pain: 0 / 10 Fatigue: mild Skin: no erythema, rash, desquamation GI: no diarrhea/constipation. No rectal pain or bleeding. No bloating or increased gas : no increase urinary symptoms. No dysuria or hematuria Objective: Weight: 189 lbs 1 oz Physical Exam: Gen: NAD Skin: no erythema, rash, desquamation. Labs: None Assessment Plan Assessment/Plan (1) Biochemically recurrent castration-sensitive adenocarcinoma of prostate: PLAN: Plan Assessment: Tolerating treatment well overall.??? I reviewed and approved all treatment associated imaging. Fatigue, mild Plan: Continue treatment as planned.??? I have reviewed potential treatment associated toxicities as well as timing for resolution and management. Follow up next week or sooner if needed. Thank you for allowing me to participate in the management and care of your patient. If I may answer any questions in the interim, please do not hesitate to contact me at any time. Adis Bush DO, MS [employer], Department of Radiation Oncology [facility] Coding Level of Care Code Radiation Tx Management x5 Diagnoses Biochemically recurrent castration-sensitive adenocarcinoma of prostate C61; R97.21; Z19.1 07/17/24818 Date Adis Soria Signature: Date (if applicable) CC: Normal [facility] Radiation Oncology Visiton 0 07-10-2024 Radiation Oncology Visit [facility] [place] [address] OFFICE VISIT Date of Service: 07/10/24808 MR#: [id number] Acct: [id number] Name: LIBORIOCAROLINEBrittanyKARAN Rep #: [id number] : 1965 From: Adis Bush DO Age/Sex: 59/M Location: [facility] Status: Signed Intake Vital Signs 04/07/24 10:01 07/10/24 08:09 Height 6 ft 6 ft Weight: 186 lb 7 oz BMI 25.2 BP 150/84 H Blood Pressure Location Rt brachial Position Sitting Respiration 18 Pulse 58 L Pulse Source Monitor Temp 97.6 F L Temperature Source Temporal Artery Pulse Oximetry (%) 100 Oxygen Delivery Method room air Intake Visit Reasons: OTV Is patient in pain?: No Allergies No Known Allergies Allergy (Verified 07/10/24 08:09) Medications ???Medication ???Instructions ???Recorded ???Confirmed ???Type liberty (Zingiber officinalis) 250 250 mg PO DAILY 12/27/22 07/10/24 History mg capsule ginseng 100 mg capsule 100 mg PO DAILY 12/27/22 07/10/24 History omega 2-fns-uel-fish oil 1,200 mg 1 cap PO DAILY 12/27/22 07/10/24 History (144 mg-216 mg) capsule (Fish Oil) sildenafil (pulm.hypertension) 20 20 mg PO TID 04/04/24 07/10/24 Hi story mg tablet PFSH PFSH Medical History Erectile dysfunction Elevated PSA Malignant neoplasm of prostate Wears glasses Non-smoker Home Medications ???Medication ???Instructions ???Recorded ???Last Taken ???Type liberty (Zingiber officinalis) 250 250 mg PO DAILY 12/27/22 Unknown History mg capsule ginseng 100 mg capsule 100 mg PO DAILY 12/27/22 Unknown H istory omega 6-uiu-qnl-fish oil 1,200 mg 1 cap PO DAILY 12/27/22 12/29/22 History (144 mg-216 mg) capsule (Fish Oil) sildenafil (pulm.hypertension) 20 20 mg PO TID 04/04/24 Unknown His tory mg tablet Allergy/AdvReac Type Severity Reaction Status Date / Time No Known Allergies Allergy Verified 07/10/24 08:09 Surgical History History of prostatectomy History of prostate biopsy History of sentinel lymphadenectomy History of colonoscopy Social History Smoking Status: Never smoker alcohol intake: never substance use type: does not use Diagnosis: Karan White is a 59-year-old male diagnosed with 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 Plan: Plan was made to complete salvage radiation therapy consisting of 6800 cGy delivered in 34 fractions to the prostate fossa only. Treatment Data: Treatment Site: Prostate Fossa Current total dose/Total dose planned: 4800 cGy / 6800 cGy Fraction number: Chemotherapy: none, no ADT Subjective: Pain: 0 / 10 Fatigue: mild Skin: no erythema, rash, desquamation GI: no diarrhea/constipation. No rectal pain or bleeding. No bloating or increased gas : no increase urinary symptoms. No dysuria or hematuria Objective: Weight: 186 lbs 7 oz Physical Exam: Gen: NAD Skin: no erythema, rash, desquamation. Labs: None Assessment Plan Assessment/Plan (1) Biochemically recurrent castration-sensitive adenocarcinoma of prostate: PLAN: Plan Assessment: Tolerating treatment well overall.??? I reviewed and approved all treatment associated imaging. Fatigue, mild Plan: Continue treatment as planned.??? I have reviewed potential treatment associated toxicities as well as timing for resolution and management. Follow up next week or sooner if needed. Thank you for allowing me to participate in the management and care of your patient. If I may answer any questions in the interim, please do not hesitate to contact me at any time. Adis Bush DO, MS [employer], Department of Radiation Oncology [facility] Coding Level of Care Code Radiation Tx Management x5 Diagnoses Biochemically recurrent castration-sensitive adenocarcinoma of prostate C61; R97.21; Z19.1 07/10/24 0831 Date Adis Bush DO Cosigner Signature: Date (if applicable) CC: Normal [facility] Radiation Oncology Visiton 0 07-03-2024 Radiation Oncology Visit [facility] [place] [address] OFFICE VISIT Date of Service: 07/03/24814 MR#: [id number] Acct: [id number] Name: KARAN WHITE Rep #: [id number] : 1965 From: Adis Bush DO Age/Sex: 59/M Location: [facility] Status: Signed Intake Vital Signs 04/07/24 10:01 07/03/24 08:27 Height 6 ft 6 ft Weight: 189 lb 8 oz BMI 25.7 BP 147/78 H Blood Pressure Location Rt brachial Position Sitting Respiration 18 Pulse 53 L Pulse Source Monitor Temp 96.6 F L Temperature Source Temporal Artery Pulse Oximetry (%) 100 Oxygen Delivery Method room air Intake Visit Reasons: OTV Is patient in pain?: No Allergies No Known Allergies Allergy (Verified 07/03/24 08:27) Medications ???Medication ???Instructions ???Recorded ???Confirmed ???Type liberty (Zingiber officinalis) 250 250 mg PO DAILY 12/27/22 07/03/24 History mg capsule ginseng 100 mg capsule 100 mg PO DAILY 12/27/22 07/03/24 History omega 4-arx-pxx-fish oil 1,200 mg 1 cap PO DAILY 12/27/22 07/03/24 History (144 mg-216 mg) capsule (Fish Oil) sildenafil (pulm.hypertension) 20 20 mg PO TID 04/04/24 07/03/24 Hi story mg tablet PFSH PFSH Medical History Erectile dysfunction Elevated PSA Malignant neoplasm of prostate Wears glasses Non-smoker Home Medications ???Medication ???Instructions ???Recorded ???Last Taken ???Type liberty (Zingiber officinalis) 250 250 mg PO DAILY 12/27/22 Unknown History mg capsule ginseng 100 mg capsule 100 mg PO DAILY 12/27/22 Unknown H istory omega 6-bdt-mzq-fish oil 1,200 mg 1 cap PO DAILY 12/27/22 12/29/22 History (144 mg-216 mg) capsule (Fish Oil) sildenafil (pulm.hypertension) 20 20 mg PO TID 04/04/24 Unknown His tory mg tablet Allergy/AdvReac Type Severity Reaction Status Date / Time No Known Allergies Allergy Verified 07/03/24 08:27 Surgical History History of prostatectomy History of prostate biopsy History of sentinel lymphadenectomy History of colonoscopy Social History Smoking Status: Never smoker alcohol intake: never substance use type: does not use Diagnosis: Karan White is a 59-year-old male diagnosed with 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 Plan: Plan was made to complete salvage radiation therapy consisting of 6800 cGy delivered in 34 fractions to the prostate fossa only. Treatment Data: Treatment Site: Prostate Fossa Current total dose/Total dose planned: 3800 cGy / 6800 cGy Fraction number: Chemotherapy: none, no ADT Subjective: Pain: 0 / 10 Fatigue: mild Skin: no erythema, rash, desquamation GI: no diarrhea/constipation. No rectal pain or bleeding. No bloating or increased gas : no increase urinary symptoms. No dysuria or hematuria Objective: Weight: 189 lbs 8 oz Physical Exam: Gen: NAD Skin: no erythema, rash, desquamation. Labs: None Assessment Plan Assessment/Plan (1) Biochemically recurrent castration-sensitive adenocarcinoma of prostate: PLAN: Plan Assessment: Tolerating treatment well overall.??? I reviewed and approved all treatment associated imaging. Fatigue, mild Plan: Continue treatment as planned.??? I have reviewed potential treatment associated toxicities as well as timing for resolution and management. Follow up next week or sooner if needed. Thank you for allowing me to participate in the management and care of your patient. If I may answer any questions in the interim, please do not hesitate to contact me at any time. Adis Bush DO, MS [employer], Department of Radiation Oncology [facility] Coding Level of Care Code Radiation Tx Management x5 Diagnoses Biochemically recurrent castration-sensitive adenocarcinoma of prostate C61; R97.21; Z19.1 07/03/24 0913 Date Adis Bush DO Cosigner Signature: Date (if applicable) CC: Normal [facility] Radiation Oncology Visiton 0 06-26-2024 Radiation Oncology Visit [facility] [address] [address] OFFICE VISIT Date of Service: 06/26/24 08 MR#: [id number] Acct: [id number] Name: KARAN WHITE Rep #: [id number] : 1965 From: Adis Bush DO Age/Sex: 59/M Location: [facility] Status: Signed Intake Vital Signs 04/07/24 10:01 06/26/24 08:05 Height 6 ft 6 ft Weight: 190 lb 8 oz BMI 25.8 BP 127/76 H Blood Pressure Location Rt brachial Position Sitting Respiration 16 Pulse 53 L Pulse Source Monitor Temp 96.7 F L Temperature Source Temporal Artery Pulse Oximetry (%) 99 Oxygen Delivery Method room air Intake Visit Reasons: OTV Is patient in pain?: No Allergies No Known Allergies Allergy (Verified 06/26/24 08:04) Medications ???Medication ???Instructions ???Recorded ???Confirmed ???Type liberty (Zingiber officinalis) 250 250 mg PO DAILY 12/27/22 06/26/24 History mg capsule ginseng 100 mg capsule 100 mg PO DAILY 12/27/22 06/26/24 History omega 6-paf-saz-fish oil 1,200 mg 1 cap PO DAILY 12/27/22 06/26/24 History (144 mg-216 mg) capsule (Fish Oil) sildenafil (pulm.hypertension) 20 20 mg PO TID 04/04/24 06/26/24 Hi story mg tablet PFSH PFSH Medical History Erectile dysfunction Elevated PSA Malignant neoplasm of prostate Wears glasses Non-smoker Home Medications ???Medication ???Instructions ???Recorded ???Last Taken ???Type liberty (Zingiber officinalis) 250 250 mg PO DAILY 12/27/22 Unknown History mg capsule ginseng 100 mg capsule 100 mg PO DAILY 12/27/22 Unknown H istory omega 6-llg-aqf-fish oil 1,200 mg 1 cap PO DAILY 12/27/22 12/29/22 History (144 mg-216 mg) capsule (Fish Oil) sildenafil (pulm.hypertension) 20 20 mg PO TID 04/04/24 Unknown His tory mg tablet Allergy/AdvReac Type Severity Reaction Status Date / Time No Known Allergies Allergy Verified 06/26/24 08:04 Surgical History History of prostatectomy History of prostate biopsy History of sentinel lymphadenectomy History of colonoscopy Social History Smoking Status: Never smoker alcohol intake: never substance use type: does not use Diagnosis: Karan White is a 59-year-old male diagnosed with 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 Plan: Plan was made to complete salvage radiation therapy consisting of 6800 cGy delivered in 34 fractions to the prostate fossa only. Treatment Data: Treatment Site: Prostate Fossa Current total dose/Total dose planned: 2800 cGy / 6800 cGy Fraction number: Chemotherapy: none, no ADT Subjective: Pain: 0 / 10 Fatigue: none Skin: no erythema, rash, desquamation GI: no diarrhea/constipation. No rectal pain or bleeding. No bloating or increased gas : no increase urinary symptoms. No dysuria or hematuria Objective: Weight: 190 lbs 8 oz Physical Exam: Gen: NAD Skin: no erythema, rash, desquamation. Labs: None Assessment Plan Assessment/Plan (1) Biochemically recurrent castration-sensitive adenocarcinoma of prostate: PLAN: Plan Assessment: Tolerating treatment well overall.??? I reviewed and approved all treatment associated imaging. No treatment associated toxicities are noted at this time Plan: Continue treatment as planned.??? I have reviewed potential treatment associated toxicities as well as timing for resolution and management. Follow up next week or sooner if needed. Thank you for allowing me to participate in the management and care of your patient. If I may answer any questions in the interim, please do not hesitate to contact me at any time. Adis Bush DO, MS [employer], Department of Radiation Oncology [facility] Coding Level of Care Code Radiation Tx Management x5 Diagnoses Biochemically recurrent castration-sensitive adenocarcinoma of prostate C61; R97.21; Z19.1 06/26/2425 Date Adis Bush DO [facility] Signature: Date (if applicable) CC: Normal [facility] Radiation Oncology Visiton 0 06-19-2024 Radiation Oncology Visit [facility] [address] [place] [address] OFFICE VISIT Date of Service: 06/19/24 0802 MR#: [id number] Acct: [id number] Name: KARAN WHITE Rep #: [id number] : 1965 From: Adis Bush DO Age/Sex: 59/M Location: [facility] [place] Status: Signed Intake Vital Signs 04/07/24 10:01 06/19/24 08:05 Height 6 ft 6 ft Weight: 190 lb 9 oz BMI 25.8 BP 138/88 H Blood Pressure Location Rt brachial Position Sitting Respiration 16 Pulse 55 L Pulse Source Monitor Temp 96.4 F L Temperature Source Temporal Artery Pulse Oximetry (%) 100 Oxygen Delivery Method room air Intake Visit Reasons: OTV Is patient in pain?: No Allergies No Known Allergies Allergy (Verified 06/19/24 08:05) Medications ???Medication ???Instructions ???Recorded ???Confirmed ???Type liberty (Zingiber officinalis) 250 250 mg PO DAILY 12/27/22 06/19/24 History mg capsule ginseng 100 mg capsule 100 mg PO DAILY 12/27/22 06/19/24 History omega 7-shy-igs-fish oil 1,200 mg 1 cap PO DAILY 12/27/22 06/19/24 History (144 mg-216 mg) capsule (Fish Oil) sildenafil (pulm.hypertension) 20 20 mg PO TID 04/04/24 06/19/24 Hi story mg tablet PFSH PFSH Medical History Erectile dysfunction Elevated PSA Malignant neoplasm of prostate Wears glasses Non-smoker Home Medications ???Medication ???Instructions ???Recorded ???Last Taken ???Type liberty (Zingiber officinalis) 250 250 mg PO DAILY 12/27/22 Unknown History mg capsule ginseng 100 mg capsule 100 mg PO DAILY 12/27/22 Unknown H istory omega 6-and-amu-fish oil 1,200 mg 1 cap PO DAILY 12/27/22 12/29/22 History (144 mg-216 mg) capsule (Fish Oil) sildenafil (pulm.hypertension) 20 20 mg PO TID 04/04/24 Unknown His tory mg tablet Allergy/AdvReac Type Severity Reaction Status Date / Time No Known Allergies Allergy Verified 06/19/24 08:05 Surgical History History of prostatectomy History of prostate biopsy History of sentinel lymphadenectomy History of colonoscopy Social History Smoking Status: Never smoker alcohol intake: never substance use type: does not use Diagnosis: Karan White is a 59-year-old male diagnosed with 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 Plan: Plan was made to complete salvage radiation therapy consisting of 6800 cGy delivered in 34 fractions to the prostate fossa only. Treatment Data: Treatment Site: Prostate Fossa Current total dose/Total dose planned: 1800 cGy / 6800 cGy Fraction number: Chemotherapy: none, no ADT Subjective: Pain: 0 / 10 Fatigue: none Skin: no erythema, rash, desquamation GI: no diarrhea/constipation. No rectal pain or bleeding. No bloating or increased gas : no increase urinary symptoms. No dysuria or hematuria Objective: Weight: 190 lbs 9 oz Physical Exam: Gen: NAD Skin: no erythema, rash, desquamation. Labs: None Assessment Plan Assessment/Plan (1) Biochemically recurrent castration-sensitive adenocarcinoma of prostate: PLAN: Plan Assessment: Tolerating treatment well overall.??? I reviewed and approved all treatment associated imaging. No treatment associated toxicities are noted at this time Plan: Continue treatment as planned.??? I have reviewed potential treatment associated toxicities as well as timing for resolution and management. Follow up next week or sooner if needed. Thank you for allowing me to participate in the management and care of your patient. If I may answer any questions in the interim, please do not hesitate to contact me at any time. Adis Bush DO, MS [employer], Department of Radiation Oncology [facility] Coding Level of Care Code Radiation Tx Management x5 Diagnoses Biochemically recurrent castration-sensitive adenocarcinoma of prostate C61; R97.21; Z19.1 06/19/24 0853 Date Adis Soria Signature: Date (if applicable) CC: Normal [facility] Radiation Oncology Visiton 0 06-12-2024 Radiation Oncology Visit [facility] [place] [address] OFFICE VISIT Date of Service: 06/12/24 0800 MR#: [id number] Acct: [id number] Name: KARAN WHITE Rep #: [id number] : 1965 From: Adis Bush DO Age/Sex: 59/M Location: [facility] Status: Signed Intake Vital Signs 04/07/24 10:01 06/12/24 08:06 Height 6 ft 6 ft Weight: 190 lb 4 oz BMI 25.7 BP 126/80 H Blood Pressure Location Rt brachial Position Sitting Respiration 16 Pulse 57 L Pulse Source Monitor Temp 97.8 F Temperature Source Temporal Artery Pulse Oximetry (%) 99 Oxygen Delivery Method room air Intake Visit Reasons: OTV Is patient in pain?: No Allergies No Known Allergies Allergy (Verified 06/12/24 08:06) Medications ???Medication ???Instructions ???Recorded ???Confirmed ???Type liberty (Zingiber officinalis) 250 250 mg PO DAILY 12/27/22 06/12/24 History mg capsule ginseng 100 mg capsule 100 mg PO DAILY 12/27/22 06/12/24 History omega 6-hcc-ewd-fish oil 1,200 mg 1 cap PO DAILY 12/27/22 06/12/24 History (144 mg-216 mg) capsule (Fish Oil) sildenafil (pulm.hypertension) 20 20 mg PO TID 04/04/24 06/12/24 History mg tablet PFSH PFSH Medical History Erectile dysfunction Elevated PSA Malignant neoplasm of prostate Wears glasses Non-smoker Home Medications ???Medication ???Instructions ???Recorded ???Last Taken ???Type liberty (Zingiber officinalis) 250 250 mg PO DAILY 12/27/22 Unknown History mg capsule ginseng 100 mg capsule 100 mg PO DAILY 12/27/22 Unknown History omega 6-edy-kqj-fish oil 1,200 mg 1 cap PO DAILY 12/27/22 12/29/22 History (144 mg-216 mg) capsule (Fish Oil) sildenafil (pulm.hypertension) 20 20 mg PO TID 04/04/24 Unknown History mg tablet Allergy/AdvReac Type Severity Reaction Status Date / Time No Known Allergies Allergy Verified 06/12/24 08:06 Surgical History History of prostatectomy History of prostate biopsy History of sentinel lymphadenectomy History of colonoscopy Social History Smoking Status: Never smoker alcohol intake: never substance use type: does not use Diagnosis: Karan White is a 59-year-old male diagnosed with 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 Plan: Plan was made to complete salvage radiation therapy consisting of 6800 cGy delivered in 34 fractions to the prostate fossa only. Treatment Data: Treatment Site: Prostate Fossa Current total dose/Total dose planned: 800 cGy / 6800 cGy Fraction number: Chemotherapy: none, no ADT Subjective: Pain: 0 / 10 Fatigue: none Skin: no erythema, rash, desquamation GI: no diarrhea/constipation. No rectal pain or bleeding. No bloating or increased gas : no increase urinary symptoms. No dysuria or hematuria Objective: Weight: 190 lbs 4 oz Physical Exam: Gen: NAD Skin: no erythema, rash, desquamation. Labs: None Assessment Plan Assessment/Plan (1) Biochemically recurrent castration-sensitive adenocarcinoma of prostate: PLAN: Plan Assessment: Tolerating treatment well overall.??? I reviewed and approved all treatment associated imaging. No treatment associated toxicities are noted at this time Plan: Continue treatment as planned.??? I have reviewed potential treatment associated toxicities as well as timing for resolution and management. Skin: Skin care reviewed, continue lotion prn Follow up next week or sooner if needed. Thank you for allowing me to participate in the management and care of your patient. If I may answer any questions in the interim, please do not hesitate to contact me at any time. Adis Bush DO, MS [employer], Department of Radiation Oncology [facility] Coding Level of Care Code Radiation Tx Management x5 Diagnoses Biochemically recurrent castration-sensitive adenocarcinoma of prostate C61; R97.21; Z19.1 06/12/24841 Date Adis Bush Whitoramelinda Signature: Date (if applicable) CC: Normal [facility] .Auto Diffon 05-23-2024 Basophil, Absolute 0.0 10 3/mcL Normal 0.0-0.2 [facility] Comment on above: Performed By: #### P SA, CMP, ANEU, CBC, LIPID, GFR, ADIFF #### [address] [address] Basophils/100 WBC (Bld) 0.6 % Normal 0.0-2.5 [facility] Comment on above: Performed By: #### P SA, CMP, ANEU, CBC, LIPID, GFR, ADIFF #### [address] [address] Eosinophil, Absolute 0.3 10 3/mcL Normal 0.0-0.7 [facility] Comment on above: Performed By: #### P SA, CMP, ANEU, CBC, LIPID, GFR, ADIFF #### [address] [address] Eosinophils/100 WBC (Bld) 5.4 % Normal 0.0-7.0 [facility] Comment on above: Performed By: #### P SA, CMP, ANEU, CBC, LIPID, GFR, ADIFF #### [address] [address] Lymphocyte, Absolute 0.9 10 3/mcL Normal 0.9-4.3 [facility] Comment on above: Performed By: #### P SA, CMP, ANEU, CBC, LIPID, GFR, ADIFF #### [address] [address] Lymphocytes/100 WBC (Bld) 18.7 % Low 20.0-40.0 [facility] Comment on above: Performed By: #### P SA, CMP, ANEU, CBC, LIPID, GFR, ADIFF #### [address] [address] Monocyte, Absolute 0.5 10 3/mcL Normal 0.1-1.4 [facility] Comment on above: Performed By: #### P SA, CMP, ANEU, CBC, LIPID, GFR, ADIFF #### [address] [address] Monocytes/100 WBC (Bld) 9.3 % Normal 2.0-13.0 [facility] Comment on above: Performed By: #### P SA, CMP, ANEU, CBC, LIPID, GFR, ADIFF #### [address] [address] Neutrophils/100 WBC (Bld) 66.0 % Normal 50.0-75.0 [facility] Comment on above: Performed By: #### P SA, CMP, ANEU, CBC, LIPID, GFR, ADIFF #### [address] [address] .GFRon 05-23-2024 GFR 120 ml/min/1.73sqm Normal [facility] Comment on above: Result Comment: GFR Population mean for , Non- Americans Ages 20-29 = 116 mL/min/1.73 sq.m. Ages 30-39 = 107 mL/min/1.73 sq.m. Ages 40-49 = 99 mL/min/1.73 sq.m. Ages 50-59 = 93 mL/min/1.73 sq.m. Ages 60-69 = 85 mL/min/1.73 sq.m. Ages 70+ = 75 mL/min/1.73 sq.m. Chronic Kidney Disease: Less than 60 mL/min/1.73 square meters End Stage Renal Disease: Less than 15 mL/min/1.73 square meters Performed By: #### P SA, CMP, ANEU, CBC, LIPID, GFR, ADIFF #### [address] [address] GFR Non- 99 ml/min/1.73sqm Normal [facility] Comment on above: Result Comment: GFR Population mean for , Non- Americans Ages 20-29 = 116 mL/min/1.73 sq.m. Ages 30-39 = 107 mL/min/1.73 sq.m. Ages 40-49 = 99 mL/min/1.73 sq.m. Ages 50-59 = 93 mL/min/1.73 sq.m. Ages 60-69 = 85 mL/min/1.73 sq.m. Ages 70+ = 75 mL/min/1.73 sq.m. Chronic Kidney Disease: Less than 60 mL/min/1.73 square meters End Stage Renal Disease: Less than 15 mL/min/1.73 square meters Performed By: #### P SA, CMP, ANEU, CBC, LIPID, GFR, ADIFF #### [address] [address] .NEUABSon 05-23-2024 Neutrophil, Absolute 3.2 10 3/mcL Normal 2.3-8.1 [facility] Comment on above: Performed By: #### P SA, CMP, ANEU, CBC, LIPID, GFR, ADIFF #### [place] [id number] CBCon 05-23-2024 Erythrocyte distribution width (RBC) [Ratio] 12.9 % Normal 11.5-15.5 [facility] Comment on above: Performed By: #### P SA, CMP, ANEU, CBC, LIPID, GFR, ADIFF #### [place] [address] Hematocrit (Bld) [Volume fraction] 42.1 % Normal 40.0-52.0 [facility] Comment on above: Performed By: #### P SA, CMP, ANEU, CBC, LIPID, GFR, ADIFF #### [place] [id number] Hgb 14.6 G/dL Normal 13.0-17.5 [facility] Comment on above: Performed By: #### P SA, CMP, ANEU, CBC, LIPID, GFR, ADIFF #### [address] [address] MCH (RBC) [Entitic mass] 30.0 pg Normal 27.0-33.0 [facility] Comment on above: Performed By: #### P SA, CMP, ANEU, CBC, LIPID, GFR, ADIFF #### [place] [id number] MCHC 34.8 G/dL Normal 32.0-36.0 [facility] Comment on above: Performed By: #### P SA, CMP, ANEU, CBC, LIPID, GFR, ADIFF #### [place] [id number] MCV (RBC) [Entitic vol] 86.4 fL Normal 81.0-100.0 [facility] Comment on above: Performed By: #### P SA, CMP, ANEU, CBC, LIPID, GFR, ADIFF #### [place] [address] Platelet 129 10 3/mcL Low 150-450 [facility] Comment on above: Performed By: #### P SA, CMP, ANEU, CBC, LIPID, GFR, ADIFF #### [place] [address] Platelet mean volume (Bld) [Entitic vol] 11.7 fL High 6.4-10.5 [facility] Comment on above: Performed By: #### P SA, CMP, ANEU, CBC, LIPID, GFR, ADIFF #### [place] [id number] RBC 4.88 10 6/mcL Normal 4.50-6.00 [facility] Comment on above: Performed By: #### P SA, CMP, ANEU, CBC, LIPID, GFR, ADIFF #### [place] [id number] WBC 4.9 10 3/mcL Normal 4.5-10.8 [facility] Comment on above: Performed By: #### P SA, CMP, ANEU, CBC, LIPID, GFR, ADIFF #### [address] [address] CMPon 05-23-2024 Albumin Level 4.3 G/dL Normal 3.5-5.0 [facility] Comment on above: Performed By: #### P SA, CMP, ANEU, CBC, LIPID, GFR, ADIFF #### [address] [address] Albumin/Globulin [Mass ratio] 1.6 {ratio} Normal 1.1-2.5 [facility] Comment on above: Performed By: #### P SA, CMP, ANEU, CBC, LIPID, GFR, ADIFF #### [address] [address] ALP [Catalytic activity/Vol] 78 U/L Normal 40-135 [facility] Comment on above: Performed By: #### P SA, CMP, ANEU, CBC, LIPID, GFR, ADIFF #### [address] [address] ALT [Catalytic activity/Vol] 64 U/L High 16-63 [facility] Comment on above: Performed By: #### P SA, CMP, ANEU, CBC, LIPID, GFR, ADIFF #### [address] [address] AST [Catalytic activity/Vol] 28 U/L Normal 10-40 [facility] Comment on above: Performed By: #### P SA, CMP, ANEU, CBC, LIPID, GFR, ADIFF #### [address] [address] Bili Total 0.8 mg/dL Normal 0.2-1.0 [facility] Comment on above: Result Comment: Use of this assay is not recommended for patients undergoing treatment with eltrombopag due to the potential for falsely elevated results. Performed By: #### P SA, CMP, ANEU, CBC, LIPID, GFR, ADIFF #### [address] [address] BUN/Creatinine Ratio 16 ratio Normal 7-27 [facility] Comment on above: Performed By: #### P SA, CMP, ANEU, CBC, LIPID, GFR, ADIFF #### [address] [address] Calcium [Mass/Vol] 9.0 mg/dL Normal 8.4-10.2 [facility] Comment on above: Performed By: #### P SA, CMP, ANEU, CBC, LIPID, GFR, ADIFF #### [place] [address] Chloride [Moles/Vol] 105 mmol/L Normal 98-107 [facility] Comment on above: Performed By: #### P SA, CMP, ANEU, CBC, LIPID, GFR, ADIFF #### [place] [address] CO2 [Moles/Vol] 31 mmol/L High 22-29 [facility] Comment on above: Performed By: #### P SA, CMP, ANEU, CBC, LIPID, GFR, ADIFF #### [place] [address] Creatinine [Mass/Vol] 0.80 mg/dL Normal 0.70-1.30 [facility] Comment on above: Result Comment: Test ing performed on Siemens Dimension EXL analyzer using a modified kinetic Desean technique. Performed By: #### P SA, CMP, ANEU, CBC, LIPID, GFR, ADIFF #### [address] [address] Electrolyte Balance 8.0 mEq/L Normal 4.0-15.0 [facility] Comment on above: Performed By: #### P SA, CMP, ANEU, CBC, LIPID, GFR, ADIFF #### [place] [address] Globulin 2.7 G/dL Normal [facility] Comment on above: Performed By: #### P SA, CMP, ANEU, CBC, LIPID, GFR, ADIFF #### [place] [address] Glucose [Mass/Vol] 94 mg/dL Normal 70-105 [facility] Comment on above: Performed By: #### P SA, CMP, ANEU, CBC, LIPID, GFR, ADIFF #### [address] [address] Potassium [Moles/Vol] 3.8 mmol/L Normal 3.5-5.1 [facility] Comment on above: Performed By: #### P SA, CMP, ANEU, CBC, LIPID, GFR, ADIFF #### [place] [address] [place], [place] [address] Sodium [Moles/Vol] 144 mmol/L Normal 136-145 [facility] Comment on above: Performed By: #### P SA, CMP, ANEU, CBC, LIPID, GFR, ADIFF #### [address] [address] Total Protein 7.0 G/dL Normal 6.4-8.2 [facility] Comment on above: Performed By: #### P SA, CMP, ANEU, CBC, LIPID, GFR, ADIFF #### [address] [address] Urea nitrogen [Mass/Vol] 13 mg/dL Normal 7-18 [facility] Comment on above: Performed By: #### P SA, CMP, ANEU, CBC, LIPID, GFR, ADIFF #### [address] [address] LABORATORYOrdered By: SYSTEM SYSTEM on 05-23-2024 Albumin BCP dye [Mass/Vol] 4.3 G/dL Normal 3.5 - 5.0 G/dL AO ADM SS Albumin/Globulin [Mass ratio] 1.6 {ratio} Normal 1.1 - 2.5 ratio AO ADM SS ALP [Catalytic activity/Vol] 78 U/L Normal 40 - 135 U/L AO ADM SS ALT With P-5'-P [Catalytic activity/Vol] 64 U/L High 16 - 63 U/L AO ADM SS AST With P-5'-P [Catalytic activity/Vol] 28 U/L Normal 10 - 40 U/L AO ADM SS Basophils (Bld) [#/Vol] 0.0 103/mcL Normal 0.0 - 0.2 10^3/mcL AO Workflow SS Basophils/100 WBC (Bld) 0.6 % Normal 0.0 - 2.5 % AO Workflow SS Bilirubin [Mass/Vol] 0.8 mg/dL Normal 0.2 - 1 .0 mg/dL AO ADM SS Comment on above: Interpretive Data: U se of this assay is not recommended for patients undergoing treatment with eltrombopag due to the potential for falsely elevated results. Calcium [Mass/Vol] 9.0 mg/dL Normal 8.4 - 10. 2 mg/dL AO ADM SS Chloride [Moles/Vol] 105 mmol/L Normal 98 - 10 7 mmol/L AO ADM SS CO2 [Moles/Vol] 31 mmol/L High 22 - 29 mmol/L AO ADM SS Creatinine [Mass/Vol] 0.80 mg/dL Normal 0.70 - 1.30 mg/dL AO ADM SS Comment on above: Interpretive Data: T esting performed on [employer] Dimension EXL analyzer using a modified kinetic Desean technique. Electrolyte Balance 8.0 mEq/L Normal 4.0 - 15 .0 mEq/L AO ADM SS Eosinophil, Absolute 0.3 103/mcL Normal 0.0 - 0 .7 10^3/mcL AO Workflow SS Eosinophils/100 WBC (Bld) 5.4 % Normal 0.0 - 7.0 % AO Workflow SS Erythrocyte distribution width (RBC) [Ratio] 12.9 % Normal 11.5 - 15.5 % AO Workflow SS GFR/1.73 sq M.predicted among blacks MDRD (S/P/Bld) [Vol rate/Area] 120 ml/min/1.73sqm Invalid Interpretation Code AO Chemistry S Comment on above: Interpretive Data: GFR Population mean for , Non- Americans Ages 20-29 = 116 mL/min/1.73 sq.m. Ages 30-39 = 107 mL/min/1.73 sq.m. Ages 40-49 = 99 mL/min/1.73 sq.m. Ages 50-59 = 93 mL/min/1.73 sq.m. Ages 60-69 = 85 mL/min/1.73 sq.m. Ages 70+ = 75 mL/min/1.73 sq.m. Chronic Kidney Disease: Less than 60 mL/min/1.73 square meters End Stage Renal Disease: Less than 15 mL/min/1.73 square meters GFR/1.73 sq M.predicted among non-blacks MDRD (S/P/Bld) [Vol rate/Area] 99 ml/min/1.73sqm Invalid Interpretation Code AO Chemistry S Comment on above: Interpretive Data: GFR Population mean for , Non- Americans Ages 20-29 = 116 mL/min/1.73 sq.m. Ages 30-39 = 107 mL/min/1.73 sq.m. Ages 40-49 = 99 mL/min/1.73 sq.m. Ages 50-59 = 93 mL/min/1.73 sq.m. Ages 60-69 = 85 mL/min/1.73 sq.m. Ages 70+ = 75 mL/min/1.73 sq.m. Chronic Kidney Disease: Less than 60 mL/min/1.73 square meters End Stage Renal Disease: Less than 15 mL/min/1.73 square meters Globulin 2.7 G/dL Invalid Interpretation Code AO ADM SS Glucose [Mass/Vol] 94 mg/dL Normal 70 - 105 mg/dL AO ADM SS Hematocrit (Bld) [Volume fraction] 42.1 % Normal 40.0 - 52.0 % AO Workflow SS Hemoglobin (Bld) [Mass/Vol] 14.6 G/dL Normal 13.0 - 17.5 G/dL AO Workflow SS Lymphocytes (Bld) [#/Vol] 0.9 103/mcL Normal 0.9 - 4.3 10^3/mcL AO Workflow SS Lymphocytes/100 WBC (Bld) 18.7 % Low 20.0 - 40.0 % AO Workflow SS MCH (RBC) [Entitic mass] 30.0 pg Normal 27.0 - 33.0 pg AO Workflow SS MCHC 34.8 G/dL Normal 32.0 - 36.0 G/dL AO Workflow SS MCV (RBC) [Entitic vol] 86.4 fL Normal 81.0 - 100.0 fL AO Workflow SS Monocytes (Bld) [#/Vol] 0.5 103/mcL Normal 0.1 - 1.4 10^3/mcL AO Workflow SS Monocytes/100 WBC (Bld) 9.3 % Normal 2.0 - 13.0 % AO Workflow SS Neutrophils (Bld) [#/Vol] 3.2 103/mcL Normal 2.3 - 8.1 10^3/mcL AO Workflow SS Neutrophils/100 WBC (Bld) 66.0 % Normal 50.0 - 75.0 % AO Workflow SS Platelet mean volume (Bld) [Entitic vol] 11.7 fL High 6.4 - 10.5 fL AO Workflow SS Platelets (Bld) [#/Vol] 129 103/mcL Low 150 - 450 10^3/mcL AO Workflow SS Potassium [Moles/Vol] 3.8 mmol/L Normal 3.5 - 5.1 mmol/L AO ADM SS Prostate specific Ag [Mass/Vol] 0.15 ng/mL Normal 0.00 - 4.00 ng/mL AO ADM SS Protein [Mass/Vol] 7.0 G/dL Normal 6.4 - 8.2 G/dL AO ADM SS RBC (Bld) [#/Vol] 4.88 106/mcL Normal 4.50 - 6.0 0 10^6/mcL AO Workflow SS Sodium [Moles/Vol] 144 mmol/L Normal 136 - 145 mmol/L AO ADM SS Urea nitrogen [Mass/Vol] 13 mg/dL Normal 7 - 18 mg/dL AO ADM SS Urea nitrogen/Creatinine [Mass ratio] 16 ratio Normal 7 - 27 ratio AO ADM SS WBC (Bld) [#/Vol] 4.9 103/mcL Normal 4.5 - 10.8 10^3/mcL AO Workflow SS LABORATORYOrdered By: Sheeba Ramirez on 05-23-2024 Cholesterol [Mass/Vol] 187 mg/dL Normal 0 - 200 mg/dL AO ADM SS Comment on above: Interpretive Data: C holesterol Reference Interval: Less than 200 Desirable 200-239 Borderline high risk 240 and above High risk Cholesterol in HDL [Mass/Vol] 61 mg/dL High 40 - 60 mg/dL AO ADM SS Cholesterol in LDL [Mass/Vol] 113 mg/dL Normal 0 - 130 mg/dL AO ADM SS Triglyceride [Mass/Vol] 67 mg/dL Normal 0 - 150 mg/dL AO ADM SS Comment on above: Interpretive Data: T riglyceride Reference Interval: Less than 150 Normal 150-199 Borderline high risk 200-499 High risk 500 or higher Very high risk LIPIDon 05-23-2024 Cholesterol [Mass/Vol] 187 mg/dL Normal 0-200 [facility] Comment on above: Result Comment: Chol esterol Reference Interval: Less than 200 Desirable 200-239 Borderline high risk 240 and above High risk Performed By: #### P SA, CMP, ANEU, CBC, LIPID, GFR, ADIFF #### [place] [address] [place], [place] [address] Cholesterol in HDL [Mass/Vol] 61 mg/dL High 40-60 [facility] Comment on above: Performed By: #### P SA, CMP, ANEU, CBC, LIPID, GFR, ADIFF #### [place] [address] [place], [place] [address] Cholesterol in LDL [Mass/Vol] 113 mg/dL Normal 0-130 [facility] Comment on above: Performed By: #### P SA, CMP, ANEU, CBC, LIPID, GFR, ADIFF #### [place] [address] [place] [id number] Triglyceride [Mass/Vol] 67 mg/dL Normal 0-150 [facility] Comment on above: Result Comment: Trig lyceride Reference Interval: Less than 150 Normal 150-199 Borderline high risk 200-499 High risk 500 or higher Very high risk Performed By: #### P SA, CMP, ANEU, CBC, LIPID, GFR, ADIFF #### [place] [address] [place], [place] [address] PSAon 05-23-2024 Prostate Specific Antigen 0.15 ng/mL Normal 0.00-4.00 [facility] Comment on above: Performed By: #### P SA, CMP, ANEU, CBC, LIPID, GFR, ADIFF #### [place] [address] [place], [place] [address] Diagnostic total prostate sp ecific antigen (PSA) measurementOrdered By: Adis Bush on 05-22-2024 Prostate Specific Antigen Total 0.13 ng/mL 0.0-4.0 [facility] Comment on above: This test was perfor med using the TPSA assay method for [facility] chemistry system. Values obtained with differentassay methods cannot be used interchangably.When changing PSA assays in the course of monitoring apatient, additional sequential testing should be carriedout to confirm baseline values. PSA,Total- Diagnosticon PSA, DIAGNOSTIC 0.13 ng/mL Normal 0.0-4.0 [facility] Comment on above: Result Comment: This test was performed using the TPSA assay method for the [employer] chemistry system. Values obtained with different assay methods cannot be used interchangably. When changing PSA assays in the course of monitoring a patient, additional sequential testing should be carried out to confirm baseline values. Performed By: #### L 501.9940 #### [facility] [address] [place], [address] CREATININE FINGERSTICKon CREATININE WB < 1.0 Normal 0.70-1.30 [facility] Comment on above: Performed By: #### L 9100.0200 #### [facility] [address] [place], [address] EGFR WB > 60.0000 Normal >60 [facility] Comment on above: Performed By: #### L 9100.0200 #### [facility] [address] [place], [address] Creatinine measurement at dsideOrdered By: Adis Bush on 05-08-2024 Bedside Creatinine < 1.0 mg/dL 0.70-1.30 [facility] EGFROrdered By: Adis tinoco on 05-08-2024 Bedside Estimated GFR (eGFR) > 60.0000 mL/min >60 [facility] Pelvis W/WO Contraston 05-08 Pelvis W/WO Contrast [facility] [address] [place] [address] Pelvis W/WO Contrast MR#: [id number] Acct: [id number] Name: KARAN WHITE Rep #: [id number] : 1965 M 59 From: August vickers MD PCP: ROSELYN Mcguire Status: REG CLI Study: Pelvis W/WO Contrast Date of Exam: 05/08/24 Exam# [id number] Ordering Dr: Adis Bush [place] [id number] STUDY: MR PROSTATE GLAND/ PELVIS WITH T WITHOUT CONTRAST REASON FOR EXAM: Male, 59 years old. eval for prostate cancer recurrence -- positive apical margin at surgery, H/O PROSTATECTOMY TECHNIQUE: Standardized fat and water weighted pulse sequences were obtained in all 3 orthogonal planes, pre-and post contrast administration. IV 17cc clariscan was administered for the contrast portion of the examination. COMPARISON: PET/CT exam dated April 15, 2024. FINDINGS: Prostate gland volume/size: Prior prostatectomy. No visualized recurrent mass or cyst or fluid collection or lymphadenopathy in the surgical bed or adjacent pelvic regions. Seminal vesicles: Normal fluid signal bilaterally. Pelvic sidewall lymphadenopathy: None demonstrated. Bony structures: No lytic or blastic or aggressive process. No demonstrated enhancing lesions. No bone marrow edema or infiltrative marrow replacement process is seen. No visualized pathologic fractures. Bladder: No demonstrated masses or filling defects/stones. Normal urinary bladder. Normal visualized small intestine. Normal visualized colon. Vessels: No significant or large aneurysm is demonstrated. Normal osseous structures. Normal abdominal wall. Small bilateral fat-containing inguinal hernias are present. MRI/Pelvis W/WO Contrast IMPRESSION: 1. No demonstrated recurrent mass or cyst or fluid collection or lymphadenopathy in the prostate surgical bed or pelvic regions. 2. PI-RADS 1: very low (clinically significant cancer is highly unlikely to be present) 3. Prostate PET/CT exam can also be performed to determine if there is viable malignant neoplasm in the prostate gland. Prostate MRI reference: 15-30% of prostate cancers can go undetected on Prostate MRI. Monitoring and assessment by Primary physician, Urology, and oncology service recommended and treated clnically. (Cancers (Basel). 2022May 02;15(63):6749. doi: [id number] 5 Prostate Cancers Invisible on Multiparametric MRI: Pathologic Features in Correlation with Whole-Mount Prostatectomy Zack Maza 1,2,*, Kin Andrews 3, Divine Arriaga 1,2, Caridad Helms 1,2, Gutierrez Mathew 4, Florentino Ricardo 5, Syeda Moreira 6, Ankit Soto Francisco 1,2, Liyahdoretha Lingo 1,2) Reference information: Normal prostate tissue Benign prostatic hypertrophy cancer/tumor - low signal peripheral , transitional, and central zones malignancy appears as bright on DWI and low signal on ADC map Prostate imaging-reporting and data system (PI-RADS) PI-RADS 1: very low (clinically significant cancer is highly unlikely to be present) PI-RADS 2: low (clinically significant cancer is unlikely to be present) PI-RADS 3: intermediate (the presence of clinically significant cancer is equivocal) PI-RADS 4: high (clinically significant cancer is likely to be present) PI-RADS 5: very high (clinically significant cancer is highly likely to be present) PI-RADS X: component of exam technically inadequate or not performed Prostate malignancy distribution: Peripheral zone: 70-80% Transitional zone: 10-20% Central zone: 5% or less Electronically Signed: August Sanderson MD at 9:23 EST Reading Location ID and State: [address] [place] [address] , Service support , CC: ROSELYN Belle; Dr. Adis Bush DO Grill Attendant: Signed Normal [facility] PET/CT Tumor Base -Thigh Ini ton 04-15-2024 [facility] [address] [place] [id number] PET/CT Tumor Base -Thigh Init MR#: [id number] Acct: [id number] Name: KARAN WHITE Rep #: [id number] : 1965 M 59 From: Eze Doshi PCP: ROSELYN Mcguire Status: REG RCR Study: PET/CT Tumor Base -Thigh Init Date of Exam: Exam# [id number] Ordering Dr: Adis Bush DO [id number] EXAMINATION: F [address] HISTORY: 59-year-old male with history of primary prostate carcinoma presenting for restaging examination. COMPARISON EXAMINATION: None available TECHNIQUE: Following the intravenous administration of 9.7 mCi of F 18 Pylarify PSMA- via the left antecubital fossa, image acquisitions of the head, neck, chest, abdomen and pelvis contemporaneously interpreted with the CT of neck, chest, abdomen and pelvis dated 04/15/2024 to the level of the mid thigh at 70 minutes post-tracer distribution reveal: The examination was interpreted using the EANM (Fallon et al., Journal of Nuclear Medicine Molecular Imaging 44:1622, 2017) and PROMISE (Jose et al., Journal of Nuclear Medicine 59:469, 2018) interpretive criteria. HEIGHT: 72 inches WEIGHT: 183 pounds PSMA expression score PROMISE criteria: High (3): SUV ? parotid-salivary gland, intermediate (2): SUV ? liver, low (1): > blood pool, < liver, (0): < blood pool. SUV reference values: Parotid glands 23.3 Normal liver parenchyma 5.9 Blood pool 1.7 FINDINGS: Head/Neck: Symmetric radiopharmaceutical is defined in the right and left parotid and submandibular glands. Physiologic uptake is identified in the nasal cavity. There is no evidence of abnormal increased tracer uptake within the cranial vault. CHEST: There is no evidence of abnormal increased tracer uptake within the context of the bilateral hemithorax pulmonary parenchyma, mediastinum and thoracic perihilum. Pertinent chest CT findings are as follows. Coronary arterial calcification is observed. Atherosclerotic calcification is demonstrated in the thoracic aorta without evidence of aneurysm formation. Bilateral axillary and scattered mediastinal soft tissue reveals no evidence of increased tracer uptake. There are no parenchymal densities-nodules defined in the right and left hemithorax with quantitatively significant increased labeled radiotracer uptake. Abdomen/Pelvis: Normal physiologic uptake is noted in the hepatic and splenic parenchyma. There is symmetric demonstration of the right and left kidneys, normal uptake in the urinary bladder and visualized intestinal tract. Review of CT of the abdomen and pelvis reveals the following. Bilateral fat containing inguinal hernias are demonstrated. Right and left inguinal soft tissue demonstrates no evidence of quantitatively significant increased tracer uptake. Atherosclerotic calcification is noted in the abdominal aorta without evidence of aneurysm. Pelvic arterial calcification is encountered. SKELETAL: Degenerative changes within the axial skeleton demonstrate no evidence of increased tracer uptake. PET/PET/CT Tumor Base -Thigh Init IMPRESSION: 1. NEGATIVE EXAMINATION. There is no definitive quantitative scintigraphic evidence of recurrent/viable metastatic neoplasm. Electronic Signature Eze Reyes D.O. Accurate Quantification of SUVs and standardized PROMISE scores for this report are calculated using the exclusive [employer], ([place]. Patent No. [phone] [phone] B2 US [phone] [place] patent [phone] ). Standardization and correction of the FDG SUV metric exclusively available with [employer] intellectual property, allow for vendor non-specific objective quantitative sequential FDG PET-CT comparison and otherwise unobtainable optimization of the sensitivity and specificity of the examination. https://[employer] Electronically Signed: Eze Reyes DO at 13:56 EST Reading Location ID and State: [facility] [place] Tel , Service support , CC: ROSELYN Belle; Dr. Adis Bush DO Grill Attendant: Signed Normal [facility] Radiation Oncology Visiton 1 06-07-2023 Radiation Oncology Visit [facility] [address] [place] [address] OFFICE VISIT Date of Service: 04/07/24955 MR#: [id number] Acct: [id number] Name: KARAN WHITE Rep #: [id number] : 1965 From: Adis Bush DO Age/Sex: 59/M Location: [facility] Status: Signed Intake Vital Signs 01/10/23 10:14 04/07/24 10:01 Height 6 ft 6 ft Weight: 188 lb 9 oz BMI 25.5 BP 135/81 H Blood Pressure Location Rt brachial Position Sitting Respiration 16 Pulse 59 L Pulse Source Monitor Temp 97.9 F Temperature Source Temporal Artery Pulse Oximetry (%) 99 Oxygen Delivery Method room air Intake Visit Reasons: CONSULT - PROSTATE Is patient in pain?: No Allergies No Known Allergies Allergy (Verified 04/07/24 09:58) Medications ???Medication ???Instructions ???Recorded ???Confirmed ???Type liberty (Zingiber officinalis) 250 250 mg PO DAILY 12/27/22 04/07/24 History mg capsule ginseng 100 mg capsule 100 mg PO DAILY 12/27/22 04/07/24 History omega 1-zyh-ldx-fish oil 1,200 mg 1 cap PO DAILY 12/27/22 04/07/24 History (144 mg-216 mg) capsule (Fish Oil) sildenafil (pulm.hypertension) 20 20 mg PO TID 04/04/24 04/04/24 History mg tablet PFSH PFSH Medical History Erectile dysfunction Elevated PSA Malignant neoplasm of prostate Wears glasses Non-smoker Home Medications ???Medication ???Instructions ???Recorded ???Last Taken ???Type liberty (Zingiber officinalis) 250 250 mg PO DAILY 12/27/22 Unknown History mg capsule ginseng 100 mg capsule 100 mg PO DAILY 12/27/22 Unknown History omega 3-sgy-ecb-fish oil 1,200 mg 1 cap PO DAILY 12/27/22 12/29/22 History (144 mg-216 mg) capsule (Fish Oil) sildenafil (pulm.hypertension) 20 20 mg PO TID 04/04/24 Unknown History mg tablet Allergy/AdvReac Type Severity Reaction Status Date / Time No Known Allergies Allergy Verified 04/07/24 09:58 Surgical History (Updated 04/04/24 @ 11:38 by Erika Velasco) History of prostatectomy History of prostate biopsy History of sentinel lymphadenectomy History of colonoscopy Social History (Updated 04/07/24 @ 10:00 by Erika Velasco) Smoking Status: Never smoker alcohol intake: never substance use type: does not use Referring Provider: Aris Antoine MD Diagnosis: Karan White is a 59-year-old male diagnosed with 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 History of Present Illness: 11/16/2022: Patient completed TRUS guided prostate biopsy.??? Pathology demonstrated [place] 3+3 adenocarcinoma involving about 80% of 1/1 core in the left prostate apex.??? All remaining biopsies were negative. 01/10/2023: Patient completed laparoscopic robotic radical prostatectomy.??? Pathology demonstrated [place] 3+4 adenocarcinoma involving about 20% of the prostate with tumor involving both lobes, and the right lobe it is predominantly apical in location and within the left lobe is both apical and mid and location.??? No extraprostatic extension, bladder neck invasion, seminal vesicle invasion are noted.??? There is present and frequent perineural invasion.??? There is involved left apical margin measuring about 1 cm.??? 5 regional lymph nodes were obtained and none contained metastatic disease.??? pT2 pN0 Radiation Treatment History: No prior history of radiation therapy. No pacemaker. No radiosensitizing comorbidity. Interval History: Patient presents for initial consultation. He reports having essentially no urinary symptoms prior to surgery. He completed surgery in December 2022. He believes he recovered very well from surgery and urinary function returned to baseline fairly quickly. He has had sexual dysfunction and tried Viagra which did not help a lot, he still can have an erection but it is little bit more difficult. He denies urinary leakage. He does report having frequency almost always, intermittency and weak stream about half the time, and he denies having incomplete emptying, urgency, straining. He has nocturia about 1 episode per night. He denies dysuria or hematuria. He denies having leakage or incontinence. He does report normal bowel function without constipation or diarrhea. He has about 1 bowel movement per day. He denies rectal pain or bleeding. He did have a colonoscopy about 3 years ago which he reports being normal. 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 He denies cough, shortness of breath, chest pain, bone pain. He denies fatigue or unexpected weight changes. He completes all ADLs without any difficulty denies having other (more content not included)... Normal [facility] PSA,Total- Diagn[employer]icon 11-0 -2023 PSA, DIAGNOSTIC 0.13 ng/mL Normal 0.0-4.0 [facility] Comment on above: Result Comment: This test was performed using the TPSA assay method for the [employer] system. Values obtained with different assay methods cannot be used interchangably. When changing PSA assays in the course of monitoring a patient, additional sequential testing should be carried out to confirm baseline values. Performed By: #### L [id number] #### [facility] [address] [place], [place], [address] PSA,Total- Diagnosticon 05-0 PSA, DIAGNOSTIC 0.04 ng/mL Normal 0.0-4.0 [facility] Comment on above: Result Comment: This test was performed using the TPSA assay method for the [employer] chemistry system. Values obtained with different assay methods cannot be used interchangably. When changing PSA assays in the course of monitoring a patient, additional sequential testing should be carried out to confirm baseline values. Performed By: #### L [id number] #### [facility] [address] [place], [place], [address] No Panel InformationOrdered By: Victor Hugo Antoine on 05-28-2023 Prostate Specific Antigen Total 0.02 ng/mL 0.0-4.0 [facility] Comment on above: This test was perfor med using the TPSA assay method for thegridComm chemistry system. Values obtained with differentassay methods cannot be used interchangably.When changing PSA assays in the course of monitoring apatient, additional sequential testing should be carriedout to confirm baseline values. LIPIDon 03-30-2023 Cholesterol [Mass/Vol] 191 mg/dL Normal 0-200 [facility] ([place]) Comment on above: Result Comment: Chol esterol Reference Interval: Less than 200 Desirable 200-239 Borderline high risk 240 and above High risk Performed By: #### L IPID #### [id number] [place], [place] [address] Cholesterol in HDL [Mass/Vol] 65 mg/dL High 40-60 [facility] ([place]) Comment on above: Performed By: #### L IPID #### [facility] [address] [place], [place] [address] Cholesterol in LDL [Mass/Vol] 114 mg/dL Normal 0-130 [facility] ([place]) Comment on above: Performed By: #### L IPID #### [facility] [address] [place], [place] [address] Triglyceride [Mass/Vol] 60 mg/dL Normal 0-150 [facility] ([place]) Comment on above: Result Comment: Trig lyceride Reference Interval: Less than 150 Normal 150-199 Borderline high risk 200-499 High risk 500 or higher Very high risk Performed By: #### L IPID #### [id number] [place], [place] [address] No Panel InformationOrdered By: Madie Yen on 02-26-2023 Prostate Specific Antigen Total 0.02 ng/mL 0.0-4.0 [facility] Comment on above: This test was perfor med using the TPSA assay method for the[employer]Comm chemistry system. Values obtained with differentassay methods cannot be used interchangably.When changing PSA assays in the course of monitoring apatient, additional sequential testing should be carriedout to confirm baseline values. Basophil percentageOrdered B y: Octaviano Walker on 01-02-2023 WBC (Bld) [#/Vol] 4.7 10*3/uL 4.4-11.0 [facility] Blood erythrocytes count (nu mber/volume)Ordered By: Octaviano Walker on 01-02-2023 RBC (Bld) [#/Vol] 5.27 10*6/uL 4.6-6.2 [facility] Blood hemoglobin measurement (mass/volume)Ordered By: Octaviano Walker on 01-02-2023 Hemoglobin (Bld) [Mass/Vol] 15.2 g/dL 13.0-16.5 [facility] Blood platelet mean volumeOr dered By: Octaviano Walker on 01-02-2023 Platelet mean volume (Bld) [Entitic vol] 12.6 fL 6.2-12.0 [facility] Determination of erythrocyte mean corpuscular volume (MCV)Ordered By: Octaviano Walker on 01-02-2023 MCV (RBC) [Entitic vol] 85.2 fL 80-94 [facility] Hematocrit Auto (Bld) [Volum e fraction]Ordered By: Octaviano Walker on 01-02-2023 Hematocrit (Bld) [Volume fraction] 44.9 % 40-54 [facility] - Hematology and Cell countsOrdered By: Octaviano Walker on 01-02-2023 Erythrocyte distribution width (RBC) [Entitic vol] 40.2 fL 35.1-43.9 [facility] Erythrocyte distribution width (RBC) [Ratio] 12.9 % 11.6-14.6 [facility] MCH (RBC) [Entitic mass] 28.8 pg 27.0-32.0 [facility] MCHC Auto (RBC) [Mass/Vol]Or dered By: Octaviano Walker on 01-02-2023 MCHC (RBC) [Mass/Vol] 33.9 g/dL 32-36 [facility] Platelets bldOrdered By: Neeta Walker on 01-02-2023 Platelets (Bld) [#/Vol] 172 10*3/uL 150-450 [facility] .Auto Diffon 09-16-2022 Basophil, Absolute 0.0 10 3/mcL Normal 0.0-0.2 [facility] ([place]) Comment on above: Performed By: #### A BRYN, ADIFF, CMP, CBC, GFR, PSA, LIPID #### [address] [address] Basophils/100 WBC (Bld) 0.4 % Normal 0.0-2.5 [facility] ([place]) Comment on above: Performed By: #### A BRYN, ADIFF, CMP, CBC, GFR, PSA, LIPID #### [address] [address] Eosinophil, Absolute 0.2 10 3/mcL Normal 0.0-0.4 [facility] ([place]) Comment on above: Performed By: #### A BRYN, ADIFF, CMP, CBC, GFR, PSA, LIPID #### [address] [address] Eosinophils/100 WBC (Bld) 4.4 % Normal 0.0-7.0 [facility] ([place] Comment on above: Performed By: #### A BRYN, ADIFF, CMP, CBC, GFR, PSA, LIPID #### [address] [address] Lymphocyte, Absolute 1.6 10 3/mcL Normal 0.8-3.9 [facility] ([place]) Comment on above: Performed By: #### A BRYN, ADIFF, CMP, CBC, GFR, PSA, LIPID #### [address] [address] Lymphocytes/100 WBC (Bld) 30.2 % Normal 10.0-50.0 [facility] ([place]) Comment on above: Performed By: #### A BRYN, ADIFF, CMP, CBC, GFR, PSA, LIPID #### [address] [address] Monocyte, Absolute 0.5 10 3/mcL Normal 0.2-1.0 [facility] ([place] Comment on above: Performed By: #### A BRYN, ADIFF, CMP, CBC, GFR, PSA, LIPID #### [address] [address] Monocytes/100 WBC (Bld) 9.8 % Normal 1.7-13.0 [facility] ([place] Comment on above: Performed By: #### A BRYN, ADIFF, CMP, CBC, GFR, PSA, LIPID #### [address] [address] Neutrophils/100 WBC (Bld) 55.2 % Normal 37.0-80.0 [facility] ([place] Comment on above: Performed By: #### A BRYN, ADIFF, CMP, CBC, GFR, PSA, LIPID #### [address] [address] .GFRon 09-16-2022 GFR 103 ml/min/1.73sqm Normal [facility] ([place]) Comment on above: Result Comment: GFR Population mean for , Non- Americans Ages 20-29 = 116 mL/min/1.73 sq.m. Ages 30-39 = 107 mL/min/1.73 sq.m. Ages 40-49 = 99 mL/min/1.73 sq.m. Ages 50-59 = 93 mL/min/1.73 sq.m. Ages 60-69 = 85 mL/min/1.73 sq.m. Ages 70+ = 75 mL/min/1.73 sq.m. Chronic Kidney Disease: Less than 60 mL/min/1.73 square meters End Stage Renal Disease: Less than 15 mL/min/1.73 square meters Performed By: #### A BRYN, ADIFF, CMP, CBC, GFR, PSA, LIPID #### [address] [address] GFR Non- 85 ml/min/1.73sqm Normal [facility] ([place] Comment on above: Result Comment: GFR Population mean for , Non- Americans Ages 20-29 = 116 mL/min/1.73 sq.m. Ages 30-39 = 107 mL/min/1.73 sq.m. Ages 40-49 = 99 mL/min/1.73 sq.m. Ages 50-59 = 93 mL/min/1.73 sq.m. Ages 60-69 = 85 mL/min/1.73 sq.m. Ages 70+ = 75 mL/min/1.73 sq.m. Chronic Kidney Disease: Less than 60 mL/min/1.73 square meters End Stage Renal Disease: Less than 15 mL/min/1.73 square meters Performed By: #### A BRYN, ADIFF, CMP, CBC, GFR, PSA, LIPID #### [address] [address] .NEUABSon 09-16-2022 Neutrophil, Absolute 2.9 10 3/mcL Normal 2.9-6.2 [facility] ([place]) Comment on above: Performed By: #### A BRYN, ADIFF, CMP, CBC, GFR, PSA, LIPID #### [address] [address] CBCon 09-16-2022 Erythrocyte distribution width (RBC) [Ratio] 13.1 % Normal 11.5-14.5 [facility] ([place] Comment on above: Performed By: #### A BRYN, ADIFF, CMP, CBC, GFR, PSA, LIPID #### [address] [address] Hematocrit (Bld) [Volume fraction] 43.1 % Normal 42.0-52.0 [facility] ([place] Comment on above: Performed By: #### A BRYN, ADIFF, CMP, CBC, GFR, PSA, LIPID #### [address] [address] Hgb 14.9 G/dL Normal 14.0-18.0 [facility] ([place] Comment on above: Performed By: #### A BRYN, ADIFF, CMP, CBC, GFR, PSA, LIPID #### [address] [address] MCH (RBC) [Entitic mass] 28.6 pg Normal 27.0-31.2 [facility] ([place] Comment on above: Performed By: #### A BRYN, ADIFF, CMP, CBC, GFR, PSA, LIPID #### [address] [address] MCHC 34.6 G/dL Normal 31.8-35.4 [facility] ([place] Comment on above: Performed By: #### A BRYN, ADIFF, CMP, CBC, GFR, PSA, LIPID #### [address] [address] MCV (RBC) [Entitic vol] 82.7 fL Normal 80.0-94.0 [facility] ([place] Comment on above: Performed By: #### A BRYN, ADIFF, CMP, CBC, GFR, PSA, LIPID #### [address] [address] Platelet 207 10 3/mcL Normal 130-400 [facility] ([place] Comment on above: Performed By: #### A BRYN, ADIFF, CMP, CBC, GFR, PSA, LIPID #### [address] [address] Platelet mean volume (Bld) [Entitic vol] 9.8 fL Normal 7.4-10.4 [facility] ([place]) Comment on above: Performed By: #### A BRYN, ADIFF, CMP, CBC, GFR, PSA, LIPID #### [address] [address] RBC 5.21 10 6/mcL Normal 4.04-6.13 [facility] ([place] Comment on above: Performed By: #### A BRYN, ADIFF, CMP, CBC, GFR, PSA, LIPID #### [address] [address] WBC 5.3 10 3/mcL Normal 4.6-10.8 [facility] ([place] Comment on above: Performed By: #### A BRYN, ADIFF, CMP, CBC, GFR, PSA, LIPID #### [address] [address] CMPon 09-16-2022 Albumin Level 4.1 G/dL Normal 3.5-5.0 [facility] ([place] Comment on above: Performed By: #### A BRYN, ADIFF, CMP, CBC, GFR, PSA, LIPID #### [address] [address] Albumin/Globulin [Mass ratio] 1.4 {ratio} Normal 1.1-2.5 [facility] ([place] Comment on above: Performed By: #### A BRYN, ADIFF, CMP, CBC, GFR, PSA, LIPID #### [address] [address] ALP [Catalytic activity/Vol] 72 U/L Normal 40-135 [facility] ([place] Comment on above: Performed By: #### A BRYN, ADIFF, CMP, CBC, GFR, PSA, LIPID #### [address] [address] ALT [Catalytic activity/Vol] 26 U/L Normal 16-63 [facility] ([place] Comment on above: Performed By: #### A BRYN, ADIFF, CMP, CBC, GFR, PSA, LIPID #### [address] [address] AST [Catalytic activity/Vol] 15 U/L Normal 10-40 [facility] ([place] Comment on above: Performed By: #### A BRYN, ADIFF, CMP, CBC, GFR, PSA, LIPID #### [address] [address] Bili Total 0.7 mg/dL Normal 0.2-1.0 [facility] ([place] Comment on above: Result Comment: Use of this assay is not recommended for patients undergoing treatment with eltrombopag due to the potential for falsely elevated results. Performed By: #### A BRYN, ADIFF, CMP, CBC, GFR, PSA, LIPID #### [address] [address] BUN/Creatinine Ratio 13 ratio Normal 7-27 [facility] ([place] Comment on above: Performed By: #### A BRYN, ADIFF, CMP, CBC, GFR, PSA, LIPID #### [address] [address] Calcium [Mass/Vol] 9.2 mg/dL Normal 8.4-10.2 [facility] [place] Comment on above: Performed By: #### A BRYN, ADIFF, CMP, CBC, GFR, PSA, LIPID #### [address] [address] Chloride [Moles/Vol] 104 mmol/L Normal 98-107 [facility] ([place] Comment on above: Performed By: #### A BRYN, ADIFF, CMP, CBC, GFR, PSA, LIPID #### [address] [address] CO2 [Moles/Vol] 28 mmol/L Normal 22-29 [facility] ([place] Comment on above: Performed By: #### A BRYN, ADIFF, CMP, CBC, GFR, PSA, LIPID #### [address] [address] Creatinine [Mass/Vol] 0.92 mg/dL Normal 0.70-1.30 [facility] ([place]) Comment on above: Performed By: #### A BRYN, ADIFF, CMP, CBC, GFR, PSA, LIPID #### [address] [address] Electrolyte Balance 9.0 mEq/L Normal 4.0-15.0 [facility] ([place]) Comment on above: Performed By: #### A BRYN, ADIFF, CMP, CBC, GFR, PSA, LIPID #### [address] [address] Globulin 2.9 G/dL Normal [facility] ([place] Comment on above: Performed By: #### A BRYN, ADIFF, CMP, CBC, GFR, PSA, LIPID #### [address] [address] Glucose [Mass/Vol] 100 mg/dL Normal 70-105 [facility] [place] Comment on above: Performed By: #### A BRYN, ADIFF, CMP, CBC, GFR, PSA, LIPID #### [address] [address] Potassium [Moles/Vol] 4.6 mmol/L Normal 3.5-5.1 [facility] ([place] Comment on above: Performed By: #### A BRYN, ADIFF, CMP, CBC, GFR, PSA, LIPID #### [address] [address] Sodium [Moles/Vol] 141 mmol/L Normal 136-145 [facility] [place] Comment on above: Performed By: #### A BRYN, ADIFF, CMP, CBC, GFR, PSA, LIPID #### [address] [address] Total Protein 7.0 G/dL Normal 6.4-8.2 [facility]) Comment on above: Performed By: #### A BRYN, ADIFF, CMP, CBC, GFR, PSA, LIPID #### [address] [address] Urea nitrogen [Mass/Vol] 12 mg/dL Normal 7-18 [facility]) Comment on above: Performed By: #### A BRYN, ADIFF, CMP, CBC, GFR, PSA, LIPID #### [address] [address] LABORATORYOrdered By: SYSTEM SYSTEM on 09-16-2022 Albumin BCP dye [Mass/Vol] 4.1 G/dL Invalid Interpretation Code 3.5 - 5.0 G/dL AO ADM SS Albumin/Globulin [Mass ratio] 1.4 {ratio} Invalid Interpretation Code 1.1 - 2.5 ratio AO ADM SS ALP [Catalytic activity/Vol] 72 U/L Invalid Interpretation Code 40 - 135 U/L AO ADM SS ALT With P-5'-P [Catalytic activity/Vol] 26 U/L Invalid Interpretation Code 16 - 63 U/L AO ADM SS AST With P-5'-P [Catalytic activity/Vol] 15 U/L Invalid Interpretation Code 10 - 40 U/L AO ADM SS Bilirubin [Mass/Vol] 0.7 mg/dL Invalid Interpretation Code 0.2 - 1.0 mg/dL AO ADM SS Calcium [Mass/Vol] 9.2 mg/dL Invalid Interpretation Code 8.4 - 10.2 mg/dL AO ADM SS Chloride [Moles/Vol] 104 mmol/L Invalid Interpretation Code 98 - 107 mmol/L AO ADM SS CO2 [Moles/Vol] 28 mmol/L Invalid Interpretation Code 22 - 29 mmol/L AO ADM SS Creatinine [Mass/Vol] 0.92 mg/dL Invalid Interpretation Code 0.70 - 1.30 mg/dL AO ADM SS Electrolyte Balance 9.0 mEq/L Invalid Interpretation Code 4.0 - 15.0 mEq/L AO ADM SS GFR/1.73 sq M.predicted among blacks MDRD (S/P/Bld) [Vol rate/Area] 103 ml/min/1.73sqm Invalid Interpretation Code AO Chemistry S GFR/1.73 sq M.predicted among non-blacks MDRD (S/P/Bld) [Vol rate/Area] 85 ml/min/1.73sqm Invalid Interpretation Code AO Chemistry S Globulin 2.9 G/dL Invalid Interpretation Code AO ADM SS Glucose [Mass/Vol] 100 mg/dL Invalid Interpretation Code 70 - 105 mg/dL AO ADM SS Potassium [Moles/Vol] 4.6 mmol/L Invalid Interpretation Code 3.5 - 5.1 mmol/L AO ADM SS Prostate specific Ag [Mass/Vol] 9.61 ng/mL Invalid Interpretation Code 0.00 - 4.00 ng/mL AO ADM SS Protein [Mass/Vol] 7.0 G/dL Invalid Interpretation Code 6.4 - 8.2 G/dL AO ADM SS Sodium [Moles/Vol] 141 mmol/L Invalid Interpretation Code 136 - 145 mmol/L AO ADM SS Urea nitrogen [Mass/Vol] 12 mg/dL Invalid Interpretation Code 7 - 18 mg/dL AO ADM SS Urea nitrogen/Creatinine [Mass ratio] 13 ratio Invalid Interpretation Code 7 - 27 ratio AO ADM SS LABORATORYOrdered By: Ti Marcos on 09-16-2022 Basophil, Absolute 0.0 103/mcL Invalid Interpretation Code 0.0 - 0.2 10^3/mcL AO Workflow SS Basophils/100 WBC (Bld) 0.4 % Invalid Interpretation Code 0.0 - 2.5 % AO Workflow SS Cholesterol [Mass/Vol] 218 mg/dL Invalid Interpretation Code 0 - 200 mg/dL AO ADM SS Cholesterol in HDL [Mass/Vol] 47 mg/dL Invalid Interpretation Code 40 - 60 mg/dL AO ADM SS Cholesterol in LDL [Mass/Vol] 144 mg/dL Invalid Interpretation Code 0 - 130 mg/dL AO ADM SS Eosinophil, Absolute 0.2 103/mcL Invalid Interpretation Code 0.0 - 0.4 10^3/mcL AO Workflow SS Eosinophils/100 WBC (Bld) 4.4 % Invalid Interpretation Code 0.0 - 7.0 % AO Workflow SS Erythrocyte distribution width (RBC) [Ratio] 13.1 % Invalid Interpretation Code 11.5 - 14.5 % AO Workflow SS Hematocrit (Bld) [Volume fraction] 43.1 % Invalid Interpretation Code 42.0 - 52.0 % AO Workflow SS Hemoglobin (Bld) [Mass/Vol] 14.9 G/dL Invalid Interpretation Code 14.0 - 18.0 G/dL AO Workflow SS Lymphocyte, Absolute 1.6 103/mcL Invalid Interpretation Code 0.8 - 3.9 10^3/mcL AO Workflow SS Lymphocytes/100 WBC (Bld) 30.2 % Invalid Interpretation Code 10.0 - 50.0 % AO Workflow SS MCH (RBC) [Entitic mass] 28.6 pg Invalid Interpretation Code 27.0 - 31.2 pg AO Workflow SS MCHC 34.6 G/dL Invalid Interpretation Code 31.8 - 35.4 G/dL AO Workflow SS MCV (RBC) [Entitic vol] 82.7 fL Invalid Interpretation Code 80.0 - 94.0 fL AO Workflow SS Monocyte, Absolute 0.5 103/mcL Invalid Interpretation Code 0.2 - 1.0 10^3/mcL AO Workflow SS Monocytes/100 WBC (Bld) 9.8 % Invalid Interpretation Code 1.7 - 13.0 % AO Workflow SS Neutrophil, Absolute 2.9 103/mcL Invalid Interpretation Code 2.9 - 6.2 10^3/mcL AO Workflow SS Neutrophils/100 WBC (Bld) 55.2 % Invalid Interpretation Code 37.0 - 80.0 % AO Workflow SS Platelet mean volume (Bld) [Entitic vol] 9.8 fL Invalid Interpretation Code 7.4 - 10.4 fL AO Workflow SS Platelets (Bld) [#/Vol] 207 103/mcL Invalid Interpretation Code 130 - 400 10^3/mcL AO Workflow SS RBC (Bld) [#/Vol] 5.21 106/mcL Invalid Interpretation Code 4.04 - 6.13 10^6/mcL AO Workflow SS Triglyceride [Mass/Vol] 137 mg/dL Invalid Interpretation Code 0 - 150 mg/dL AO ADM SS WBC (Bld) [#/Vol] 5.3 103/mcL Invalid Interpretation Code 4.6 - 10.8 10^3/mcL AO Workflow SS LIPIDon 09-16-2022 Cholesterol [Mass/Vol] 218 mg/dL High 0-200 [facility] ([place]) Comment on above: Result Comment: Chol esterol Reference Interval: Less than 200 Desirable 200-239 Borderline high risk 240 and above High risk Performed By: #### A BRYN, ADIFF, CMP, CBC, GFR, PSA, LIPID #### [address] [address] Cholesterol in HDL [Mass/Vol] 47 mg/dL Normal 40-60 [facility] ([place]) Comment on above: Performed By: #### A BRYN, ADIFF, CMP, CBC, GFR, PSA, LIPID #### [address] [address] Cholesterol in LDL [Mass/Vol] 144 mg/dL High 0-130 [facility] ([place] Comment on above: Performed By: #### A BRYN, ADIFF, CMP, CBC, GFR, PSA, LIPID #### [address] [address] Triglyceride [Mass/Vol] 137 mg/dL Normal 0-150 [facility] ([place] Comment on above: Result Comment: Trig lyceride Reference Interval: Less than 150 Normal 150-199 Borderline high risk 200-499 High risk 500 or higher Very high risk Performed By: #### A BRYN, ADIFF, CMP, CBC, GFR, PSA, LIPID #### [place] [address] PSAon 09-16-2022 Prostate Specific Antigen 9.61 ng/mL High 0.00-4.00 [facility] ([place]) Comment on above: Performed By: #### A BRYN, ADIFF, CMP, CBC, GFR, PSA, LIPID #### [address] [address] CBC AND DIFFERENTIALon 01-26 % AUTOMATED IMMATURE GRAN 0.5 % Normal 0.0 - 0.9 [facility] Comment on above: Order Comment: PATIE NT FASTING Result Comment: Perc ent differential counts (%) should be interpreted in the context of the absolute cell counts (cells/L). Performed By: #### C BCDF ####[facility] [place] [address] % NEUTROPHIL 55.0 % Normal 40.0 - 80.0 [facility] Comment on above: Order Comment: PATIE NT FASTING Performed By: #### C BCDF ####[facility] [place] [address] Basophils/100 WBC Auto (Bld) 0.3 % Normal 0.0 - 2.0 [facility] Comment on above: Order Comment: PATIE NT FASTING Performed By: #### C BCDF ####[facility] [place] [address] Basophils/100 WBC Auto (Bld) 0.02 x10E9/L Normal 0.00 - 0.10 [facility] Comment on above: Order Comment: PATIE NT FASTING Performed By: #### C BCDF ####[facility] [place] [address] Eosinophils 0.21 10*3/uL Normal 0.00 - 0.70 [facility] Comment on above: Order Comment: PATIE NT FASTING Performed By: #### C BCDF ####[facility] [place] [address] Eosinophils/100 leukocytes 3.6 % Normal 0.0 - 6.0 [facility] Comment on above: Order Comment: PATIE NT FASTING Performed By: #### C BCDF ####[facility] [place] [address] Erythrocyte distribution width Auto Ratio (RBC) 12.8 % Normal 11.5 - 14.5 [facility] Comment on above: Order Comment: PATIE NT FASTING Performed By: #### C BCDF ####[facility] [place] [address] Erythrocytes (RBC) 5.17 x10E12/L Normal 4.50 - 5.90 [facility] Comment on above: Order Comment: PATIE NT FASTING Performed By: #### C BCDF ####[facility] [place] [address] Hematocrit (HCT) 43.5 % Normal 41.0 - 52.0 [facility] Comment on above: Order Comment: PATIE NT FASTING Performed By: #### C BCDF ####[facility] [place] [address] Hemoglobin mass conc (Bld) 15.2 g/dL Normal 13.5 - 17.5 [facility] Comment on above: Order Comment: PATIE NT FASTING Performed By: #### C BCDF ####[facility] [place] [address] Lymphocytes 1.78 10*3/uL Normal 1.20 - 4.80 [facility] Comment on above: Order Comment: PATIE NT FASTING Performed By: #### C BCDF ####[facility] [place] [address] Lymphocytes/100 leukocytes 30.6 % Normal 13.0 - 44.0 [facility] Comment on above: Order Comment: PATIE NT FASTING Performed By: #### C BCDF ####[facility] [place] [address] MCHC mass conc (RBC) 34.9 g/dL Normal 32.0 - 36.0 [facility] Comment on above: Order Comment: PATIE NT FASTING Performed By: #### C BCDF ####[facility] [place] [address] MCV 84 fL Normal 80 - 100 [facility] Comment on above: Order Comment: PATIE NT FASTING Performed By: #### C BCDF ####[facility] [place] [address] Monocytes 0.58 10*3/uL Normal 0.10 - 1.00 [facility] Comment on above: Order Comment: PATIE NT FASTING Performed By: #### C BCDF ####[facility] [place] [address] Monocytes/100 leukocytes 10.0 % Normal 2.0 - 10.0 [facility] [facility] Comment [facility]: Order Comment: PATIE NT FASTING Performed By: #### C BCDF ####[facility] [place] [address] Neutrophils 3.20 10*3/uL Normal 1.20 - 7.70 [facility] Comment on above: Order Comment: PATIE NT FASTING Performed By: #### C BCDF ####[facility] [place] [address] Nucleated erythrocytes 0.0 /100 WBC Normal 0.0-0.0 [facility] Comment on above: Order Comment: PATIE NT FASTING Performed By: #### C BCDF ####[facility] [place] [address] Platelets 192 10*3/uL Normal 150 - 450 [facility] Comment on above: Order Comment: PATIE NT FASTING Performed By: #### C BCDF ####[facility] [place] [address] WBC (Leukocytes) 5.8 10*3/uL Normal 4.4 - 11.3 [facility] Comment on above: Order Comment: PATIE NT FASTING Performed By: #### C BCDF ####[facility] [place] [address] COMPREHENSIVE PANELon 2016 Alanine aminotransferase (ALT) 23 U/L Normal 10 - 52 [facility] Comment on above: Order Comment: PATIE NT FASTING Result Comment: Jessi ents treated with Sulfasalazine may generate falsely decreased results for ALT. Performed By: #### C MP ####[facility] [place] [address] Albumin 4.5 g/dL Normal 3.4 - 5.0 [facility] Comment on above: Order Comment: PATIE NT FASTING Performed By: #### C MP ####[facility] [place] [address] Alkaline phosphatase (ALP) 65 U/L Normal 33 - 120 [facility] Comment on above: Order Comment: PATIE NT FASTING Performed By: #### C MP ####[facility] [place] [address] Anion gap 15 mmol/L Normal 10 - 20 [facility] Comment on above: Order Comment: PATIE NT FASTING Performed By: #### C MP ####[facility] [place] [address] Aspartate aminotransferase (AST) 20 U/L Normal 9 - 39 [facility] Comment on above: Order Comment: PATIE NT FASTING Performed By: #### C MP ####[facility] [place] [address] Bicarbonate (HCO3) 26 mmol/L Normal 21 - 32 [facility] Comment on above: Order Comment: PATIE NT FASTING Performed By: #### C MP ####[facility] [place] [address] Bilirubin (total) 0.5 mg/dL Normal 0.0 - 1.2 [facility] Comment on above: Order Comment: PATIE NT FASTING Performed By: #### C MP ####[facility] [place] [address] Calcium 9.5 mg/dL Normal 8.6 - 10.6 [facility] Comment on above: Order Comment: PATIE NT FASTING Performed By: #### C MP ####[facility] [place] [address] Chloride 105 mmol/L Normal 98 - 107 [facility] Comment on above: Order Comment: PATIE NT FASTING Performed By: #### C MP ####[facility] [place] [address] Creatinine 0.81 mg/dL Normal 0.50 - 1.30 [facility] Comment on above: Order Comment: PATIE NT FASTING Performed By: #### C MP ####[facility] [place] [address] eGFR (non-black) mL/min/{1.73_m2} Normal >60 [facility] Comment on above: Order Comment: PATIE NT FASTING Result Comment: CALC ULATIONS OF ESTIMATED GFR ARE PERFORMED USING THE MDRD STUDY EQUATION FOR THE IDMS-TRACEABLE CREATININE METHODS. CLIN CHEM 2007;53:766-72 Performed By: #### C MP ####[facility] [place] [address] Glucose mass conc 104 mg/dL High 74 - 99 [facility] Comment on above: Order Comment: PATIE NT FASTING Performed By: #### C MP ####[facility] [place] [address] Potassium molar conc 4.6 mmol/L Normal 3.5 - 5.3 [facility] Comment on above: Order Comment: PATIE NT FASTING Performed By: #### C MP ####[facility] [place] [address] Protein 7.3 g/dL Normal 6.4 - 8.2 [facility] Comment on above: Order Comment: PATIE NT FASTING Performed By: #### C MP ####[facility] [place] [address] Sodium 141 mmol/L Normal 136 - 145 [facility] Comment on above: Order Comment: PATIE NT FASTING Performed By: #### C MP ####[facility] [place] [address] Urea nitrogen 14 mg/dL Normal 6 - 23 [facility] Comment on above: Order Comment: PATIE NT FASTING Performed By: #### C MP ####[facility] [place] [address] LIPID PANEL (CORONARY RISK 2 )on 01-26-2017 Cholesterol 253 mg/dL High 0 - 199 [facility] Comment on above: Order Comment: PATIE NT FASTING Result Comment: . AG E DESIRABLE BORDERLINE HIGH HIGH 0-19 Y 0 - 169 170 - 199 >/= 200 20-24 Y 0 - 189 190 - 224 >/= 225 >24 Y 0 - 199 200 - 239 >/= 240 All ranges are based on fasting samples. Specific therapeutic targets will vary based on patient-specific cardiac risk.. Pediatric guidelines reference:Pediatrics 2011, 128(S5). Adult guidelines reference: NCEP ATPIII Guidelines, WING 2001, 258:2486-97. Venipuncture immediately after or during the administration of Metamizole may lead to falsely low results. Testing should be performed immediately prior to Metamizole dosing. Performed By: #### L IPID ####[facility] [place] [address] Cholesterol in VLDL mass conc 28 mg/dL Normal 0 - 40 [facility] Comment on above: Order Comment: PATIE NT FASTING Performed By: #### L IPID ####[facility] [place] [address] Cholesterol to HDL Ratio 5.1 {ratio} Abnormal [facility] Comment on above: Order Comment: PATIE NT FASTING Result Comment: REF VALUESDESIRABLE < 3.4HIGH RISK > 5.0 Performed By: #### L IPID ####[facility] [place] [address] HDL Cholesterol 49.4 mg/dL Normal [facility] Comment on above: Order Comment: PATIE NT FASTING Result Comment: . AG E VERY LOW LOW NORMAL HIGH 0-19 Y < 35 < 40 40-45 ---- 20-24 Y ---- < 40 >45 ---- >24 Y ---- < 40 40-60 >60. Performed By: #### L IPID ####[facility] [place] [address] LDL Cholesterol 176 mg/dL High 0 - 99 [facility] Comment on above: Order Comment: PATIE NT FASTING Result Comment: . SHEA NIXON AGE DESIRABLE OPTIMAL HIGH HIGH VERY HIGH 0-19 Y 0 - 109 --- 110-129 >/= 130 ---- 20-24 Y 0 - 119 --- 120-159 >/= 160 ---- >24 Y 0 - 99 100-129 130-159 160-189 >/=190. Performed By: #### L IPID ####[facility] [place] [address] Triglyceride 140 mg/dL Normal 0 - 149 [facility] Comment on above: Order Comment: PATIE NT FASTING Result Comment: . AG E DESIRABLE BORDERLINE HIGH HIGH VERY HIGH 0 D-90 D 19 - 174 ---- ---- ----91 D- 9 Y 0 - 74 75 - 99 >/= 100 ---- 10-19 Y 0 - 89 90 - 129 >/= 130 ---- 20-24 Y 0 - 114 115 - 149 >/= 150 ---- >24 Y 0 - 149 150 - 199 200- 499 >/= 500. Venipuncture immediately after or during the administration of Metamizole may lead to falsely low results. Testing should be performed immediately prior to Metamizole dosing. Performed By: #### L IPID ####[facility] [place] [address] Vital Signs Date Time Vital Sign Value Performing Clinician Katy sampson 07-24-2024 08:11-0500 Body height 182.88 cm Deonte Baltes MULTI SITE LEASING CONSULTANT-C Work Phone: [facility] 07-24-2024 08:11-0500 Body mass index (BMI) [Ratio] 26 kg/m2 Deonte Baltes MULTI SITE LEASING CONSULTANT-C Work Phone: [facility] 07-24-2024 08:11-0500 Body temperature 96.4 [degF] Deonte Baltes MULTI SITE LEASING CONSULTANT-C Work Phone: [facility] 07-24-2024 08:11-0500 Body weight 87.2 kg Deonte Baltes MULTI SITE LEASING CONSULTANT-C Work Phone: [facility] 07-24-2024 08:11-0500 Diastolic blood pressure 88 mm[Hg] Deonte Baltes MULTI SITE LEASING CONSULTANT-C Work Phone: [facility] 07-24-2024 08:11-0500 Heart rate 54 /min Deonte Baltes MULTI SITE LEASING CONSULTANT-C Work Phone: [facility] 07-24-2024 08:11-0500 Respiratory rate 18 /min Deonte Baltes MULTI SITE LEASING CONSULTANT-C Work Phone: [facility] 07-24-2024 08:11-0500 SaO2% (BldA) [Mass fraction] 100 % Deonte Baltes MULTI SITE LEASING CONSULTANT-C Work Phone: [facility] 07-24-2024 08:11-0500 Systolic blood pressure 151 mm[Hg] Deonte Baltes MULTI SITE LEASING CONSULTANT-C Work Phone: [facility] 07-17-2024 08:09-0500 Body mass index (BMI) [Ratio] 25.6 kg/m2 Deonte Baltes MULTI SITE LEASING CONSULTANT-C Work Phone: [facility] 07-17-2024 08:09-0500 Body temperature 96.8 [degF] Deonte Baltes MULTI SITE LEASING CONSULTANT-C Work Phone: [facility] 07-17-2024 08:09-0500 Body weight 85.75 kg Deonte Baltes MULTI SITE LEASING CONSULTANT-C Work Phone: [facility] 07-17-2024 08:09-0500 Diastolic blood pressure 80 mm[Hg] Deonte Baltes MULTI SITE LEASING CONSULTANT-C Work Phone: [facility] 07-17-2024 08:09-0500 Heart rate 55 /min Deonte Baltes MULTI SITE LEASING CONSULTANT-C Work Phone: [facility] 07-17-2024 08:09-0500 Respiratory rate 18 /min Deonte Baltes MULTI SITE LEASING CONSULTANT-C Work Phone: [facility] 07-17-2024 08:09-0500 SaO2% (BldA) [Mass fraction] 100 % Deonte Baltes MULTI SITE LEASING CONSULTANT-C Work Phone: [facility] 07-17-2024 08:09-0500 Systolic blood pressure 137 mm[Hg] Deonte Baltes MULTI SITE LEASING CONSULTANT-C Work Phone: [facility] 07-10-2024 08:09-0500 Body mass index (BMI) [Ratio] 25.2 kg/m2 Deonte Baltes MULTI SITE LEASING CONSULTANT-C Work Phone: [facility] 07-10-2024 08:09-0500 Body temperature 97.6 [degF] Deonte Baltes MULTI SITE LEASING CONSULTANT-C Work Phone: [facility] 07-10-2024 08:09-0500 Body weight 84.56 kg Deonte Baltes MULTI SITE LEASING CONSULTANT-C Work Phone: [facility] 07-10-2024 08:09-0500 Diastolic blood pressure 84 mm[Hg] Deonte Baltes MULTI SITE LEASING CONSULTANT-C Work Phone: [facility] 07-10-2024 08:09-0500 Heart rate 58 /min Deonte Baltes M[employer]I SITE LEASING CONSULTANT-C Work Phone: [facility] 07-10-2024 08:09-0500 Respiratory rate 18 /min Deonte Baltes MULT[employer] SITE LEASING CONSULTANT-C Work Phone: [facility] 07-10-2024 08:09-0500 SaO2% (BldA) [Mass fraction] 100 % Deonte Baltes MULTI SITE LEASING CONSULTANT-C Work Phone: [facility] 07-10-2024 08:09-0500 Systolic blood pressure 150 mm[Hg] Deonte Baltes MULTI SITE LEASING CONSULTANT-C Work Phone: [facility] 07-03-2024 08:27-0500 Body mass index (BMI) [Ratio] 25.7 kg/m2 Deonte Baltes MULTI SITE LEASING CONSULTANT-C Work Phone: [facility] 07-03-2024 08:27-0500 Body temperature 96.6 [degF] Deonte Baltes MULTI SITE LEASING CONSULTANT-C Work Phone: [facility] 07-03-2024 08:27-0500 Body weight 85.95 kg Deonte Baltes MULTI SITE LEASING CONSULTANT-C Work Phone: [facility] 07-03-2024 08:27-0500 Diastolic blood pressure 78 mm[Hg] Deonte Baltes MULTI SITE LEASING CONSULTANT-C Work Phone: [facility] 07-03-2024 08:27-0500 Heart rate 53 /min Deonte Baltes MULTI SITE LEASING CONSULTANT-C Work Phone: [facility] 07-03-2024 08:27-0500 Respiratory rate 18 /min Deonte Baltes MULTI SITE LEASING CONSULTANT-C Work Phone: [facility] 07-03-2024 08:27-0500 SaO2% (BldA) [Mass fraction] 100 % Deonte Baltes MULTI SITE LEASING CONSULTANT-C Work Phone: [facility] 07-03-2024 08:27-0500 Systolic blood pressure 147 mm[Hg] Deonte Baltes MULTI SITE LEASING CONSULTANT-C Work Phone: [facility] 06-26-2024 08:05-0500 Body mass index (BMI) [Ratio] 25.8 kg/m2 Deonte Baltes MULTI SITE LEASING CONSULTANT-C Work Phone: [facility] 06-26-2024 08:05-0500 Body temperature 96.7 [degF] Deonte Baltes MULTI SITE LEASING CONSULTANT-C Work Phone: [facility] 06-26-2024 08:05-0500 Body weight 86.4 kg Deonte Baltes MULTI SITE LEASING CONSULTANT-C Work Phone: [facility] 06-26-2024 08:05-0500 Diastolic blood pressure 76 mm[Hg] Deonte Baltes MULTI SITE LEASING CONSULTANT-C Work Phone: [facility] 06-26-2024 08:05-0500 Heart rate 53 /min Deonte Baltes M[employer] SITE LEASING CONSULTANT-C Work Phone: [facility] 06-26-2024 08:05-0500 Respiratory rate 16 /min Deonte Baltes MULTI SITE LEASING CONSULTANT-C Work Phone: [facility] 06-26-2024 08:05-0500 SaO2% (BldA) [Mass fraction] 99 % Deonte Baltes MULTI SITE LEASING CONSULTANT-C Work Phone: [facility] 06-26-2024 08:05-0500 Systolic blood pressure 127 mm[Hg] Deonte Baltes MULTI SITE LEASING CONSULTANT-C Work Phone: [facility] 06-19-2024 08:05-0500 Body mass index (BMI) [Ratio] 25.8 kg/m2 Deonte Baltes M[employer]I SITE LEASING CONSULTANT-C Work Phone: [facility] 06-19-2024 08:05-0500 Body temperature 96.4 [degF] Deonte Baltes MULTI SITE LEASING CONSULTANT-C Work Phone: [facility] 06-19-2024 08:05-0500 Body weight 86.43 kg Deonte Baltes MULTI SITE LEASING CONSULTANT-C Work Phone: [facility] 06-19-2024 08:05-0500 Diastolic blood pressure 88 mm[Hg] Deonte Baltes MULTI SITE LEASING CONSULTANT-C Work Phone: [facility] 06-19-2024 08:05-0500 Heart rate 55 /min Deonte Baltes M[employer] SITE LEASING CONSULTANT-C Work Phone: [facility] 06-19-2024 08:05-0500 Respiratory rate 16 /min Deonte Baltes MULT[employer] SITE LEASING CONSULTANT-C Work Phone: [facility] 06-19-2024 08:05-0500 SaO2% (BldA) [Mass fraction] 100 % Deonte Baltes M[employer] SITE LEASING CONSULTANT-C Work Phone: [facility] 06-19-2024 08:05-0500 Systolic blood pressure 138 mm[Hg] Deonte Baltes MULTI SITE LEASING CONSULTANT-C Work Phone: [facility] 06-12-2024 08:06-0500 Body mass index (BMI) [Ratio] 25.7 kg/m2 Deonte Baltes MULTI SITE LEASING CONSULTANT-C Work Phone: [facility] 06-12-2024 08:06-0500 Body temperature 97.8 [degF] Deonte Baltes MULTI SITE LEASING CONSULTANT-C Work Phone: [facility] 06-12-2024 08:06-0500 Body weight 86.29 kg Deonte Baltes MULTI SITE LEASING CONSULTANT-C Work Phone: [facility] 06-12-2024 08:06-0500 Diastolic blood pressure 80 mm[Hg] Deonte Baltes MULTI SITE LEASING CONSULTANT-C Work Phone: [facility] 06-12-2024 08:06-0500 Heart rate 57 /min Deonte Baltes MULTI SITE LEASING CONSULTANT-C Work Phone: [facility] 06-12-2024 08:06-0500 Respiratory rate 16 /min Deonte Baltes MULT[employer] SITE LEASING CONSULTANT-C Work Phone: [facility] 06-12-2024 08:06-0500 SaO2% (BldA) [Mass fraction] 99 % Deonte Baltes MULTI SITE LEASING CONSULTANT-C Work Phone: [facility] 06-12-2024 08:06-0500 Systolic blood pressure 126 mm[Hg] Deonte Baltes MULTI SITE LEASING CONSULTANT-C Work Phone: [facility] 01-11-2023 08:49-0400 Body temperature 98.8 [degF] M[employer] SITE LEASING CONSULTANT-C Deonte Baltes MULTI SITE LEASING CONSULTANT Work Phone: [facility] 01-11-2023 08:49-0400 Diastolic blood pressure 74 mm[Hg] M[employer]I SITE LEASING CONSULTANT-C Deonte Baltes MULTI SITE LEASING CONSULTANT Work Phone: [facility] 01-11-2023 08:49-0400 Heart rate 73 /min M[employer] SITE LEASING CONSULTANT-C Deonte Baltes MULTI SITE LEASING CONSULTANT Work Phone: [facility] 01-11-2023 08:49-0400 Respiratory rate 18 /min M[employer] SITE LEASING CONSULTANT-C Deonte Baltes MULTI SITE LEASING CONSULTANT Work Phone: [facility] 01-11-2023 08:49-0400 SaO2% (BldA) [Mass fraction] 95 % M[employer] SITE LEASING CONSULTANT-C Deonte Baltes MULTI SITE LEASING CONSULTANT Work Phone: [facility] 01-11-2023 08:49-0400 Systolic blood pressure 118 mm[Hg] MULTI SITE LEASING CONSULTANT-C Deonte Baltes MULTI SITE LEASING CONSULTANT Work Phone: [facility] 01-10-2023 10:14-0400 Body height 182.88 cm MULTI SITE LEASING CONSULTANT-C Deonte Baltes MULTI SITE LEASING CONSULTANT Work Phone: [facility] 01-10-2023 10:14-0400 Body mass index (BMI) [Ratio] 26.6 kg/m2 M[employer] SITE LEASING CONSULTANT-C Deonte Baltes MULTI SITE LEASING CONSULTANT Work Phone: [facility] 01-10-2023 10:14-0400 Body weight 89 kg M[employer] SITE LEASING CONSULTANT-C Deonte Baltes MULTI SITE LEASING CONSULTANT Work Phone: [facility] Encounters Encounter Date Encounter Type Care Provider Facility Start: 08-18-2024 End: 08-18-2024 ambulatory Deonte Belle M[employer]I SITE LEASING CONSULTANT-C Work Phone: [facility] Work Phone: Start: 08-18-2024 End: 08-18-[address] Victor Hugo Antoine MD -Laboratory Work Phone: Start: 08-18-2024 End: 08-18-2024 ambulatory Victor Hugo Antoine Facility:[facility] Start: 07-24-[address] Adis Copeland on DO -Radiation Oncology Start: 07-24-2024 End: 07-24-[address] [facility] Work Phone: Start: 07-24-2024 End: 07-24-2024 ambulatory Deonte Belle MULTI SITE LEASING CONSULTANT Facility:[facility] Start: 07-17-2024 End: 07-17-[address] [facility] Work Phone: Start: 07-17-2024 End: 07-17-2024 ambulatory Deonte Belle MULTI SITE LEASING CONSULTANT Facility:[facility] Start: 07-10-2024 End: 07-10-[address] [facility] Work Phone: Start: 07-10-2024 End: 07-10-2024 ambulatory Deonte Belle MULTI SITE LEASING CONSULTANT Facility:[facility] Start: 07-03-2024 End: 07-03-[address] [facility] Work Phone: Start: 07-03-2024 End: 07-03-2024 ambulatory Deonte Belle MULTI SITE LEASING CONSULTANT Facility:[facility] Start: 06-26-2024 End: 06-26-[address] [facility] Work Phone: Start: 06-26-2024 End: 06-26-2024 ambulatory Deonte Belle MULTI SITE LEASING CONSULTANT Facility:[facility] Start: 06-19-2024 End: 06-19-[address] [facility] Start: 06-19-2024 End: 06-19-2024 ambulatory Deonte Belle MULTI SITE LEASING CONSULTANT Facility:[facility] Start: 06-12-2024 End: 06-12-[address] Adis Bush DO [facility] Work Phone: Start: 06-12-2024 End: 06-12-2024 ambulatory Deonte Belle MULTI SITE LEASING CONSULTANT Facility:[facility] [place] Start: 05-23-2024 End: 05-27-2024 ambulatory DEONTE BALTES RN [employer] Facility:[facility] Start: 05-23-2024 End: 05-27-2024 Encounter for general adult medical examination without abnormal findings DEONTE YOSHI RN [employer] Facility:[facility] Start: 05-23-2024 End: 05-27-2024 Outreach Lab DEONTE WILYSCARLETT RN BUILDING-[employer] [facility] Start: 05-22-2024 ambulatory Deonte Belle MULTI SITE LEASING CONSULTANT Facility :[facility] Start: 05-22-2024 Non-patient / Non-visit Dr. Adis burris DO [facility] Start: 05-08-2024 End: 05-08-[address] Adis Bush DO [facility] Work Phone: Start: 05-08-2024 ambulatory Deonte Belle MULTI SITE LEASING CONSULTANT Facility :[facility] Start: 05-08-2024 Non-patient / Non-visit Dr. Adis burris [facility] Start: 05-08-2024 End: 05-08-2024 ambulatory Deonte Belle MULTI SITE LEASING CONSULTANT Facility:[facility] Start: 04-07-2024 End: 04-07-2024 ambulatory Srini Elina Facility:[facility] Start: 03-28-2024 End: 03-28-2024 ambulatory Deonte Baltes MULTI SITE LEASING CONSULTANT Facility:[facility] Start: 09-25-2023 End: 09-25-2023 ambulatory Srini Elina Facility:[facility] Start: 05-28-2023 End: 05-28-2023 ambulatory [facility] Work Phone: Start: 05-28-2023 End: 05-28-2023 Patient encounter procedure [facility] Work Phone: Start: 03-30-2023 End: 04-04-2023 ambulatory DEONTE BELLE RN [employer] Facility:[facility] Start: 03-30-2023 End: 04-04-2023 Encounter for general adult medical examination without abnormal findings DEONTE BELLE RN [employer] Facility:[facility] Start: 03-27-2023 End: 03-27-2023 ambulatory [facility] Start: 02-26-2023 End: 02-26-2023 ambulatory M[employer] SITE LEASING CONSULTANT-C Deonte Belle MULTI SITE LEASING CONSULTANT Work Phone: [facility] Work Phone: Start: 02-26-2023 End: 02-26-2023 Patient encounter procedure M[employer] S[employer] LEASING CONSULTANT-C Deonte Belle MULTI SITE LEASING CONSULTANT Work Phone: [facility] Work Phone: Start: 01-10-2023 End: 01-11-2023 Evaluation and management of inpatient M[employer] LEASING CONSULTANT-C Deonte Belle MULTI SITE LEASING CONSULTANT Work Phone: [facility] Work Phone: Start: 01-10-2023 End: 01-11-2023 observation encounter M[employer] S[employer] LEASING CONSULTANT-C Deonte Belle MULTI SITE LEASING CONSULTANT Work Phone: [facility] Work Phone: Start: 01-02-2023 End: 01-02-2023 Non-patient / Non-visit M[employer] S[employer] LEASING CONSULTANT-C Deonte Belle MULTI SITE LEASING CONSULTANT Work Phone: [facility] Work Phone: Start: 11-16-2022 End: 11-16-2022 ambulatory [facility] Work Phone: Start: 11-16-2022 End: 11-16-2022 Patient encounter procedure [facility]Laboratory, Specimen Work Phone: Start: 09-16-2022 End: 09-17-2022 ambulatory DEONTE BELLE RN [employer] Facility:[facility] Start: 09-16-2022 End: 09-16-2022 Patient encounter procedure DEONTE BELLE [facility] Procedures Date Procedure Procedure Detail Performing Clinician Start: 05-08-2024 MRI of pelvis with contrast Deonte Belle M[employer]I SITE LEASING CONSULTANT-C Work Phone: Start: 04-15-2024 Positron emission tomography with computed tomography Deonte Belle MULTI SITE LEASING CONSULTANTKassandraC Work Phone: Start: 01-10-2023 Lap Robotic Prostate ctomy (Not Applicable) M[employer] SITE LEASING CONSULTANT-C Deonte Belle MULTI SITE LEASING CONSULTANT Work Phone: Plan of Treatment Date Care Activity Detail Author Start: 01-11-2023 Patient discharge [facility] Start: 01-10-2023 Following clinical pathway protocol [facility] Start: 01-10-2023 Anes xtrprtl lwr abd w/urinary tract rad prstect ANESTH REMOVAL OF PROSTATE [facility] Start: 01-10-2023 Laps prostect retropubic rad w/nrv sparing robot LAPS SURG [id number] RPBIC RAD [facility] Start: 01-10-2023 Deep breathing and coughing exercises [facility] Start: 01-10-2023 Incentive spirometry [facility] Start: 01-10-2023 Oxygen therapy [facility] Start: 01-10-2023 Provision of activity privileges [facility] Start: 01-10-2023 Admission procedure [facility] Start: 01-10-2023 Measuring intake and output [facility] Start: 01-10-2023 Patient education [facility] Start: 01-10-2023 Taking patient vital signs [facility] Start: 01-10-2023 Vital signs measurements [facility] Start: 01-10-2023 End: 01-10-2023 [facility] Electrocardiographic procedure [facility] Patient referral [facility] Work Phone: Payers Date Payer Category Payer Self-pay 2022 Unknown [id number] 2020 Unknown [id number] 1966 Unknown [id number] 2.16.8 [id number] 1966 Unknown [id number] 2.16.8 [id number] 1966 Unknown [id number] 2.16.8 [id number] Unknown [id number] 2.16.8 [id number] Unknown [id number] 2.16.8 [id number] Unknown [id number] 2.16.8 [id number] Unknown [id number] 2.16.8 [id number] Unknown [id number] 2.16.8 [id number] Unknown [id number] 2.16.8 [id number] Unknown [id number] 2.16.8 40.1.368031.3.579.2.462 Unknown [id number] 2.16.8 40.1.436326.3.579.2.462 Unknown [id number] 2.16.8 40.1.304435.3.579.2.462 Unknown [id number] 2.16.8 40.1.178810.3.579.2.462 Unknown [id number] 2.16.8 40.1.831907.3.579.2.462 Unknown [id number] 2.16.8 40.1.608466.3.579.2.462 Unknown [id number] 2.16.8 40.1.702618.3.579.2.462 Unknown [id number] 2.16.8 40.1.001517.3.579.2.462 Unknown [id number] 2.16.8 40.1.741048.3.579.2.462 Social History Date Type Detail Facility Start: 10-12-2020 End: 04-07-2024 Tobacco smoking status Never smoked tobacco (finding) [facility] Start: 1965 Sex Assigned At Male A [facility] Start: 12-27-2022 End: 12-27-2022 Tobacco smoking status NCIS Unknown if ever smoked [facility] [place] [facility] Start: 05-15-2020 End: 08-21-2024 Sex Male (finding) [facility] NEGATED: Highlighted row - - -[facility] Work Phone: Goals Date Patient Goal Desired Activity /State Functional Status Date Assessment Result Facility 01-11-2023 Functional status Ambulates;Up ad michelle [facility] Work Phone: NEGATED: Highlighted row Functional performance Functional status health issues are not documented Disease -[facility] Work Phone: Mental Status Date Assessment Result Facility 01-11-2023 Cognitive function Voice/Name 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 Medical Records Department [address] [place] [address] Progress Note - Urology 01/11/23 0742 MR#: [id number] Acct: [id number] Name: KARAN WHITE Rep #:[id number] : 1965 57 From: Victor Hugo Antoine MD PCP: ROSELYN Mcguire Status:ADM SWAPNA Location: [place] [address] Subjective Subjective Status post radical prostatectomy patient is doing well he can go home today with a Anglin catheter to leg bag Objective Data Objective Data Vital Signs: Vital Signs Temp Pulse Resp BP Pulse Ox O2 Del Method 98.1 F 73 18 108/63 96 Room Air 01/11/23 05:05 01/11/23 05:05 01/11/23 05:05 01/11/23 05:05 01/11/23 05:05 01/11/23 05:05 Oxygen Delivery Method Room Air Weight: 89 kg Body Mass Index (BMI) 26.6 Intake & Output: Intake and Output for Last 24 Hours 01/09/23 01/10/23 01/11/23 23:59 23:59 23:59 Intake Total 2535 / 2535 1599.17 / 1599.17 Output Total 400 / 1000 1100 / 1100 Balance 2135 / 1535 499.17 / 499.17 Lab / Micro Data 01/02/23 07:57 01/11/23 0742 <Electronically signed by Victor Hugo Antoine MD> Cosigner Signature (if applicable): CC: ~ Signed [facility] Work Phone: 1(737) 437-832608-23-[address] [facility] 01-10-2023 Discharge summary Author Victor Hugo Antoine [facility] January 10, 2023 11:46am Note Date/Time January 10, 2023 11 :46am [facility] Medical Records Department [address] [place] [address] Instructions for Home/Discharge Instructions 01/10/23 1146 MR#: [id number] Acct: [id number] Name: KARAN WHITE Rep #:[id number] : 1965 57 From: Victor Hugo Antoine MD PCP: ROSELYN Mcguire [place] [facility] [place] Instructions Diet Discharge Diet: No restrictions, Light diet - advance as tolerated and Soft diet Activity Discharge Activity: Return to Normal Activity Return to work on:: 02/14/23September shower in (days): 1 Lifting Restrictions: No lifting over 15 pounds for 6 weeks Dressing / Incision Catheter: Anglin to leg bag and Anglin to large bag Drain: Jena Follow Up Care Please Follow Up With: Victor Hugo Antoine MD When: call for appt Test Results: Test results from this visit will be discussed in further detail at your follow- up appointment, if applicable. Discharge Plan Admission Primary Reason for Your Visit: Radical Prostatectomy Attending Provider: Victor Hugo Antoine Primary Care Provider: Deonte Belle NP Discharge Orders/Prescriptions Prescriptions: New ciprofloxacin HCl [Cipro] 500 mg tablet 500 mg PO BID Qty: 20 0RF docusate sodium [Colace] 100 mg capsule 100 mg PO BID Qty: 20 0RF oxycodone 5 mg tablet 5 mg PO Q6H PRN (Reason: pain) 7 Days Qty: 14 0RF Continued omega 7-eio-fal-fish oil [Fish Oil] 1,200 (144-216) mg capsule 1 cap PO DAILY liberty (Zingiber officinalis) 250 mg capsule 250 mg PO DAILY ginseng 100 mg capsule 100 mg PO DAILY Other Ambulatory Orders: 12 Lead EKG (Routine) Timeframe: 20230102 Location: None Selected Ordered By: Dr. Octaviano Walker Referrals / Follow Up: Victor Hugo Antoine MD [Med Staff - Active Staff] - Disposition Disposition (needs filled in before D/C Order can be placed): Home, Self Care 01/10/23 1146<Electronically signed by Victor Hugo Antoine MD>Victor Hugo Antoine MD CC: MULTI SITE LEASING CONSULTANT-C Deonte Belle ~ Signed [facility] Work Phone: 1(321) 136-534008-23-2023 History and physical note Author Victor Hugo Antoine [facility] January 10, 2023 11:45am Note Date/Time January 10, 2023 11 :46am [facility] Medical Records Department [address] [place] [address] History & Physical Exam 01/10/23 1145 MR#: [id number] Acct: [id number] Name: KARAN WHITE Rep #:[id number] : 1965 57 From: Victor Hugo Antoine MD PCP: ROSELYN Mcguire [place] [facility] [place]: [place] [address] HPI - General General Date of Service: 01/10/23 Chief Complaint: Prostate cancer HPI Narrative KARAN WHITE, is a 57 M who presents for radical prostatectomy for prostate cancer [facility] Medical History (Updated 01/10/23 @ 11:[address] Victor Hugo Antoine MD) Non-smoker Wears glasses Home Medications liberty (Zingiber officinalis) 250 mg capsule 250 mg PO DAILY 12/27/22 [History Last Taken Unknown] ginseng 100 mg capsule 100 mg PO DAILY 12/27/22 [History Last Taken Unknown] omega 5-lzn-blx-fish oil 1,200 mg (144 mg-216 mg) capsule (Fish Oil) 1 cap PO DAILY 12/27/22 [History Last Taken 12/29/22] ciprofloxacin HCl 500 mg tablet (Cipro) 500 mg PO BID #20 tabs 01/10/23 [Rx Last Taken Unknown] docusate sodium 100 mg capsule (Colace) 100 mg PO BID #20 caps 01/10/23 [Rx Last Taken Unknown] oxycodone 5 mg tablet 5 mg PO Q6H PRN pain 7 days #14 tabs 01/10/23 [Rx Last Taken Unknown] Allergy/AdvReac Type Severity Reaction Status Date / Time No Known Allergies Allergy Verified 01/10/23 10:13 Surgical History (Updated 12/27/22 @ 12:38 by Yoli Fraser) History of colonoscopy Social History Smoking Status: Never smoker Vital Signs Vital Signs Vital Signs: 01/10/23 10:14 01/10/23 10:14 Temperature 98 F Temperature Source Temporal Pulse Rate 77 Respiratory Rate 16 Respiratory Pattern Normal Blood Pressure 159/84 H Blood Pressure Mean 109 Blood Pressure Source Monitor Blood Pressure Position Semi-Fowlers Blood Pressure Location Left Arm Pulse Ox 100 Oxygen Delivery Method Room Air Weight Weight: 89 kg Body Mass Index (BMI) 26.6 Results Lab / Micro Data 01/02/23 07:57 01/10/23 1145 <Electronically signed by Victor Hugo Antoine MD> Cosigner Signature (if applicable): CC: MULTI SITE LEASING CONSULTANT-C Deonte Belle; Dr. Victor Hugo Antoine MD~ Signed [facility] Work Phone: 1(210) 236-400508-15-2023 Hospital Discharge instructionsAmbulatory Orders* 12 Lead EKG [[facility]] Time Frame: 01/02/23, Location: None Selected Additional Instructions Implant Used?: [facility] Work Phone: Consult note Author Amelie Eldridge [facility] January 11, 2023 12:28pm Note Date/Time January 11, 2023 12 :16pm [facility] Medical Records Department [address] [place] [id number] Counseling Note - Pharmacy 01/11/23 1215 MR#: [id number] Acct: [id number] Name: KARAN WHITE Rep #:[id number] : 1965 57 From: Amelie Eldridge PCP: ROSELYN Mcguire Status:ADM SWAPNA Y Location: [place] [address] Pharmacy [facility] has performed discharge medication reconciliation and counseling for this patient. The patient was counseled on the following discharge medications and changes in medications for homegoing were reviewed. 1. CIPRO 2. OXYCODONE 3. DOCUSATE The Reason for Use, instructions for use, and potential side effects were reviewed for all new medications. The patient's questions regarding all of their medications were answered. The patient was able to verbally demonstrate an understanding of their dischargemedications. The patient's discharge medication list was reviewed for discrepancies and discrepancies were resolved. The patient was counselled by Annette Ca PharmD Candidate Medications at Discharge Home Medications liberty (Zingiber officinalis) 250 mg capsule 250 mg PO DAILY 12/27/22 ginseng 100 mg capsule 100 mg PO DAILY 12/27/22 omega 5-uph-cdl-fish oil 1,200 mg (144 mg-216 mg) capsule (Fish Oil) 1 cap PO DAILY 12/27/22 ciprofloxacin HCl 500 mg tablet (Cipro) 500 mg PO BID #20 tabs 01/10/23 docusate sodium 100 mg capsule (Colace) 100 mg PO BID #20 caps 01/10/23 oxycodone 5 mg tablet 5 mg PO Q6H PRN pain 7 days #14 tabs 01/10/23 01/11/23 1228 <Electronically signed by Amelie Eldridge > Date _ Amelie Eldridge Cosigner Signature (if applicable): Date CC: ~ Signed [facility] Work Phone: Evaluation + Plan note Future Appointments Appointment Date:09/26/2022 07:00:00 AM Scheduled Provider:DEONTE BELLE Location:[facility] Appointment Type:PC Wellness Annual [facility] Evaluation + Plan note Future Appointments Appointment Date:12/02/2024 07:00:00 AM Scheduled Provider:DEONTE BELLE Location:[facility] Appointment Type:PC OV [facility] Evaluation noteNo assessment information available [facility] Work Phone: Hospital course Narrative No data available for this section [facility] Hospital Discharge instructions No data available for this section [facility] Instructions* Name Dates Details Instructions not documented [facility] Work Phone: Progress note No data available for this section [facility] Reason for referral (narrative)No reason for referral information [facility] Work Phone: Summary Purpose Family History No Family History Records Found Mother Name Dates Details Family history of Healthy ad ult Status:Active Father Name Dates Details Family history of diabetes rosmery terrell(V18.0, Z83.3) Status:Active Advance Directives No Advanced Directives Records Found Advance Directive Response Recorded Date/ Time Living Will No December 27, 2022 12:33pm Power of Harvest Worker [employer] No December 27 12:33pm Advance Directive Response Recorded Date/ Time Living Will No December 27, 2022 11:33am Power of Harvest Worker [employer] No December 27 11:33am Chief Complaint and Reason for Visit Chief Complaint PREOP Laparoscopic Robotic Radical Prostatectomy Chief Complaint Admit Date EVAL FOR PROSTATE CANCER RECURRANCE Dece mber 2023 12:41pm OTV June 12, 2024 7 :40am OTV June 19, 2024 7 :43am OTV June 26, 2024 7 :37am OTV July 03, 2024 7:51am OTV July 10, 2024 7:51am OTV July 17, 2024 7:52am OTV July 24, 2024 7:45 am xrt July 24, 2024 8:00 am Reason for Visit Admit Date 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 June 12, 2024 7:40am 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 June 19, 2024 7:43am 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 June 26, 2024 7:37am 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 July 03, 2024 7:51am 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 July 10, 2024 7:51am 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 July 17, 2024 7:52am 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 July 24, 2024 7:45am Additional Source Comments (unrecognized sect ion and content) No Status Records FoundNo Status Records FoundNo Status Records FoundNo Status Records FoundNo Status Records Found INFORMATION SOURCE (unrecogn ized section and content) DATE CREATED AUTHOR 11/14/2017 [facility] DATE CREATED AUTHOR AUTHOR'S ORGANIZ ATION 03/28/2023 [facility] DATE CREATED AUTHOR AUTHOR'S ORGANIZ ATION 04/09/2023 [facility] DATE CREATED AUTHOR AUTHOR'S ORGANIZ ATION 05/31/2024 [facility] DATE CREATED AUTHOR AUTHOR'S ORGANIZ ATION 09/05/2024 [facility] Patient Care team informatio n (unrecognized section and content) Team Status: Active Member Role Status Dates Deonte Belle MULTI SITE LEASING CONSULTANT, MULTI SITE LEASING CONSULTANT-C Primary Care Provider Active Team Status: Active Member Role Status Dates Deonte Belle MULTI SITE LEASING CONSULTANT, MULTI SITE LEASING CONSULTANT-C Primary Care Provider Active Start: May 08, 2024 Dr. Adis Bush DO Attending Provider Active Start: May 08, 2024 Dr. Adis Bush DO Referring Provider Active Start: May 08, 2024 Team Status: Inactive Member Role Status Dates Deonte Belle MULTI SITE LEASING CONSULTANT, MULTI SITE LEASING CONSULTANT-C Primary Care Provider Active Start: May 08, 2024 End: May 08, 2024 Dr. Adis Bush DO Attending Provider Active Start: May 08, 2024 End: May 08, 2024 Dr. Adis Bush DO Referring Provider Active Start: May 08, 2024 End: May 08, 2024 Team Status: Active Member Role Status Dates Deonte Belle MULTI SITE LEASING CONSULTANT, MULTI SITE LEASING CONSULTANT-C Primary Care Provider Active Start: May 22, 2024 Dr. Adis Bush DO Attending Provider Active Start: May 22, 2024 Dr. Adis Bush DO Referring Provider Active Start: May 22, 2024 Team Status: Inactive Member Role Status Dates Deonte Belle MULTI SITE LEASING CONSULTANT, MULTI SITE LEASING CONSULTANT-C Primary Care Provider Active Start: June 12, 2024 End: June 12, 2024 Dr. Adis Bush DO Attending Provider Active Start: June 12, 2024 End: June 12, 2024 Dr. Adis Bush DO Referring Provider Active Start: June 12, 2024 End: June 12, 2024 Team Status: Inactive Member Role Status Dates Deonte Belle MULTI SITE LEASING CONSULTANT, MULTI SITE LEASING CONSULTANT-C Primary Care Provider Active Start: June 19, 2024 End: June 19, 2024 Dr. Adis Buhs DO Attending Provider Active Start: June 19, 2024 End: June 19, 2024 Dr. Adis uBsh DO Referring Provider Active Start: June 19, 2024 End: June 19, 2024 Team Status: Inactive Member Role Status Dates Deonte Belle MULTI SITE LEASING CONSULTANT, MULTI SITE LEASING CONSULTANT-C Primary Care Provider Active Start: June 26, 2024 End: June 26, 2024 Dr. Adis Bush DO Attending Provider Active Start: June 26, 2024 End: June 26, 2024 Dr. Adis Bush DO Referring Provider Active Start: June 26, 2024 End: June 26, 2024 Team Status: Inactive Member Role Status Dates Deonte Belle MULTI SITE LEASING CONSULTANT, MULTI SITE LEASING CONSULTANT-C Primary Care Provider Active Start: July 03, 2024 End: July 03, 2024 Dr. Adis Bush DO Attending Provider Active Start: July 03, 2024 End: July 03, 2024 Dr. Adis Bush DO Referring Provider Active Start: July 03, 2024 End: July 03, 2024 Team Status: Inactive Member Role Status Dates Deonte Belle MULTI SITE LEASING CONSULTANT, MULTI SITE LEASING CONSULTANT-C Primary Care Provider Active Start: July 10, 2024 End: July 10, 2024 Dr. Adis Bush DO Attending Provider Active Start: July 10, 2024 End: July 10, 2024 Dr. Adis Bush DO Referring Provider Active Start: July 10, 2024 End: July 10, 2024 Team Status: Inactive Member Role Status Dates Deonte Belle MULTI SITE LEASING CONSULTANT, MULTI SITE LEASING CONSULTANT-C Primary Care Provider Active Start: July 17, 2024 End: July 17, 2024 Dr. Adis Bush DO Attending Provider Active Start: July 17, 2024 End: July 17, 2024 Dr. Adis Bush DO Referring Provider Active Start: July 17, 2024 End: July 17, 2024 Team Status: Inactive Member Role Status Dates Deonte Belle MULTI SITE LEASING CONSULTANT, MULTI SITE LEASING CONSULTANT-C Primary Care Provider Active Start: July 24, 2024 End: July 24, 2024 Dr. Adis Bush DO Attending Provider Active Start: July 24, 2024 End: July 24, 2024 Dr. Adis Bush DO Referring Provider Active Start: July 24, 2024 End: July 24, 2024 Team Status: Active Member Role Status Dates Deonte Belle MULTI SITE LEASING CONSULTANT, MULTI SITE LEASING CONSULTANT-C Primary Care Provider Active Start: July 24, 2024 Dr. Adis Bush DO Attending Provider Active Start: July 24, 2024 Dr. Adis Bush DO Referring Provider Active Start: July 24, 2024 Team Status: Inactive Member Role Status Dates Deonte Belle NP, MULTI SITE LEASING CONSULTANT-C Primary Care Provider Active Start: August 18, 2024 End: August 18, 2024 Dr. Victor Hugo Antoine MD Attending Provider Active Start: August 18, 2024 End: August 18, 2024 Dr. Victor Hugo Antoine MD Referring Provider Active Start: August 18, 2024 End: August 18, 2024 Team Status: Inactive Member Role Status Dates Deonte Belle MULTI SITE LEASING CONSULTANT, MULTI SITE LEASING CONSULTANT-C Primary Care Provider Active Madie Yen Attending Provider, Referring Provide r Active Team Status: Inactive Member Role Status Dates Deonte Belle NP, MULTI SITE LEASING CONSULTANT-C Primary Care Provider Active Dr. Victor Hugo Antoine MD Attending Provider, Referr ing Provider Active Team Status: Inactive Member Role Status Dates Dr. Victor Hugo Antoine MD Attending Provider, Referr ing Provider Active Team Status: Active Member Role Status Dates Deonte Belle NP, MULTI SITE LEASING CONSULTANT-C Primary Care Provider Active Dr. Michelle Rizzo MD Attending Provider Active Dr. Victor Hugo Antoine MD Referring Provider Active Team Status: Inactive Member Role Status Dates Dr. Victor Hugo Antoine MD Admit Provid er, Attending Provider, Referring Provider Active Deonte Belle MULTI SITE LEASING CONSULTANT, MULTI SITE LEASING CONSULTANT-C Primary Care Provider Active Goals (unrecognized section and content) Goals may be documented in a n alternate section FOR RECORDS PERTAINING TO PATIENTS WHO ARE [...] BE BASED ON THE PRIMARY CLINICAL RECORDS. [employer] provides no warranty or guarantee of the accuracy or completeness of information in this document.
== END | disposition home or self-care (01) ==
LOC: LAB 09:36
PROVIDERS: PCP Nurse Practitioner Primary Care; Referring Provider Urology; Visit Provider Urology
DX: C61 Malignant neoplasm of prostate (principal)
CPT/HCPCS: 36415; 84153

== ENCOUNTER → 2025-01-21 | Outpatient (CLI) | payer BC, SELFPAY ==
--- NOTE | 2025-01-21 08:09 | RAD_ITS ---
PROCEDURE: ABDOMEN SINGLE VIEW 01/21/2025 REASON FOR EXAM: CALCULUS OF KIDNEY TECHNIQUE: Procedure Code: RADABD Modality: DX Procedure: ABDOMEN SINGLE VIEW COMPARISON: None FINDINGS: There is a nonobstructive bowel gas pattern. There are no abnormal soft tissue calcifications project over either renal outline or along the path of either ureter. There is mild dextroscoliosis of the thoracolumbar spine. RAD/Abdomen Single View IMPRESSION: No evidence of acute abdominal pathology. Reading Location: [id number]
[2025-01-21 10:06] LABS: PSA,Total- Diagnostic < 0.02 ng/mL (0.00-4.00)
== END | disposition home or self-care (01) ==
LOC: LAB 07:17
PROVIDERS: PCP Nurse Practitioner Primary Care; Referring Provider Urology; Visit Provider Urology
DX: C61 Malignant neoplasm of prostate (principal); N20.0 Calculus of kidney
CPT/HCPCS: 36415; 74018; 84153

== ENCOUNTER → 2025-05-20 | Outpatient (CLI) | payer BC, SELFPAY ==
--- OUTSIDE RECORDS SUMMARY | 2025-05-20 11:49 | XMS RPT_ITS | CCD ---
Author Organization [facility] CliniSyid Care Team Providers Care Beauty Consultant Name Role Phone Jaydon Aguilar Unavailable Unavailable BALTES WHOLESALE ACCOUNT EXECUTIVE-SURGICAL INSTRUMENT TECHNICIAN, DEONTE Primary Care Physician [phone] Baltes APPLIANCE SERVICE SUPERVISOR, APPLIANCE SERVICE SUPERVISOR-C Deonte Primary Care Provider [phone] Dr. Michelle Rizzo Attending Provider [phone] Victor Hugo Antoine Referring Provider JAYDON AGUILAR Attending Unavailable JAYDON AGUILAR Primary Care Unavailable BALTES WHOLESALE ACCOUNT EXECUTIVE-SURGICAL INSTRUMENT TECHNICIAN, DEONTE Attending Unavailabl e BALTES WHOLESALE ACCOUNT EXECUTIVE-SURGICAL INSTRUMENT TECHNICIAN, DEONTE Primary Care Unavailabl e BALTES WHOLESALE ACCOUNT EXECUTIVE-SURGICAL INSTRUMENT TECHNICIAN, DEONTE Attending Unavailabl e BALTES WHOLESALE ACCOUNT EXECUTIVE-SURGICAL INSTRUMENT TECHNICIAN, DEONTE Primary Care Unavailabl e BALTES WHOLESALE ACCOUNT EXECUTIVE-SURGICAL INSTRUMENT TECHNICIAN, DEONTE Attending Unavailabl e BALTES WHOLESALE ACCOUNT EXECUTIVE-SURGICAL INSTRUMENT TECHNICIAN, DEONTE Primary Care Unavailabl e Baltes APPLIANCE SERVICE SUPERVISOR-C, Deonte Primary Care Provider [phone] Dr. Adis Bush DO Attending Provider Dr. Adis Bush DO Referring Provider Elina LOONEY, Dr. Victor Hugo Hurst Attending Provider Elina LOONEY, Dr. Victor Hugo Hurst Referring Provider Tellytes APPLIANCE SERVICE SUPERVISOR-C, Deonte Primary Care Provider [phone] Dr. Adis Bush DO Attending Provider Dr. Adis Bush DO Referring Provider Tellytes APPLIANCE SERVICE SUPERVISOR-C, Deonte Primary Care Provider [phone] Elina LOONEY, Dr. Victor Hugo Hurst Attending Provider [phone] Elina LOONEY, Dr. Victor Hugo Hurst Referring Provider Eleazar, Adis Attending Unavailable Baltes APPLIANCE SERVICE SUPERVISOR, Deonte Primary Care Unavailable Elina, Srini Referring Unavailable Eleazar, Adis Referring Unavailable Eleazar, Adis Attending Unavailable Baltes APPLIANCE SERVICE SUPERVISOR, Deonte Primary Care Unavailable Eleazar, Adis Referring Unavailable Eleazar, Adis Attending Unavailable Baltes APPLIANCE SERVICE SUPERVISOR, Deonte Primary Care Unavailable Eleazar, Adis Attending Unavailable Eleazar, Adis Referring Unavailable Baltes APPLIANCE SERVICE SUPERVISOR, Deonte Primary Care Unavailable Point Roberts, Madie Referring Unavailable Point Roberts, Madie Attending Unavailable Baltes APPLIANCE SERVICE SUPERVISOR, Deonte Primary Care Unavailable Eleazar, Adis Attending Unavailable Eleazar, Adis Referring Unavailable Baltes APPLIANCE SERVICE SUPERVISOR, Deonte Primary Care Unavailable Eleazar, Adis Attending Unavailable Eleazar, Adis Referring Unavailable Baltes APPLIANCE SERVICE SUPERVISOR, Deonte Primary Care Unavailable Eleazar, Adis Attending Unavailable Eleazar, Adis Referring Unavailable Baltes APPLIANCE SERVICE SUPERVISOR, Deonte Primary Care Unavailable Eleazar, Adis Referring Unavailable Eleazar, Adis Attending Unavailable Baltes APPLIANCE SERVICE SUPERVISOR, Deonte Primary Care Unavailable Eleazar, Adis Attending Unavailable Eleazar, Adis Referring Unavailable Baltes APPLIANCE SERVICE SUPERVISOR, Deonte Primary Care Unavailable Eleazar, Adis Attending Unavailable Eleazar, Adis Referring Unavailable Baltes APPLIANCE SERVICE SUPERVISOR, [place] Primary Care Unavailable Eleazar, Adis Attending Unavailable Eleazar, Adis Referring Unavailable Baltes APPLIANCE SERVICE SUPERVISOR, Deonte Primary Care Unavailable Eleazar, Adis Referring Unavailable Eleazar, Adis Attending Unavailable Baltes APPLIANCE SERVICE SUPERVISOR, Deonte Primary Care Unavailable Elina, Srini Attending Unavailable Baltes APPLIANCE SERVICE SUPERVISOR, Deonte Primary Care Unavailable Elina, Srini Referring Unavailable Baltes APPLIANCE SERVICE SUPERVISOR, Deonte Primary Care Unavailable Elina, Srini Referring Unavailable Elina, Srini Attending Unavailable Baltes APPLIANCE SERVICE SUPERVISOR, Deonte Primary Care Unavailable Elina, Srini Referring Unavailable Elina, Srini Attending Unavailable Allergies Allergy Classification Reported Allergen(s) Allergy Type Date of Onset Reaction(s) Facility (1 source) ALLERGIES NOT ON FILE; Translations: [ALLERGIES NOT ON FILE] Propensity to adverse reactions (disorder) [facility] 3 Repository Medications Current Medications Medication [...] take 1 tablet by sanchez once daily garlic oral tablet Dose = 1 tab(s), Oral, Daily, 2000 mg, 0 Refill(s) Start Date: 10/13/20 Status: Ordered liberty root 250 mg oral capsule (8 sources) Start: 12-27-2022 take 1 capsule by mouth once daily Liberty (Zingiber Officinalis) 250 mg capsule Active 250 mg PO DAILY December 27, 2022 12:00am Start: 10-13-2020 take 1 capsule by mo [facility] once daily Liberty Root oral capsule Daily, 1100 mg, 0 Refill(s) Start Date: 10/13/20 Status: Ordered Repeat number: 1 Start: 10-13-2020 take 1 capsule by mo [facility] once daily Liberty Root oral capsule Daily, 1100 mg, 0 Refill(s) Start Date: 10/13/20 Status: Ordered ginkgo biloba extract 60 mg oral capsule (2 sources) Start: 10-13-2020 Ginkgo Biloba 60 mg oral capsule Dose : 120 mg = 2 cap(s), Oral, Daily, 0 Refill(s) Start Date: 10/13/20 Status: Ordered Repeat number: 1 Ginseng (6 sources) Start: 12-27-2022 take 1 capsule [...] Refill(s), 104.7 Start Date: 10/13/20 Status: Ordered Azeri Panax Ginseng (2 sources) Start: 10-13-2020 Azeri Panax G inseng Azeri Panax Ginseng, Daily, 1000 mg, 0 Refill(s), 104.7 Start Date: 10/13/20 Status: Ordered Repeat number: 1 Start: 10-13-2020 Azeri Panax G inseng Azeri Panax Ginseng, Daily, 1000 mg, 0 Refill(s), 104.7 Start Date: 10/13/20 Status: Ordered Olivia (1 source) Start: 10-13-2020 Olivia Olivia, Analy ly, 1000 mg, 0 Refill(s), 104.7 [...] 1 Start: 10-13-2020 [facility] Multivitamin Dose = 1 tab(s), Oral, Daily, 0 Refill(s) Start Date: 10/13/20 Status: Ordered Sutherland 2-Kka-Hws-Fish Oil (Fi sh Oil) 1,200 (144-216) mg capsule (6 sources) Start: 12-27-2022 Sutherland 3-Dha-Ep a-Fish Oil (Fish Oil) 1,200 (144-216) mg capsule Active 1 NMA PO DAILY December 27, 2022 12:00am Start: 12-27-2022 take 1 capsule by mo [facility] once daily Sutherland 8-Xwm-Vlo-Fish Oil (Fish Oil) 1,200 (144-216) mg capsule Active 1 CAP PO DAILY December 26, 2022 11:00pm Start: 12-27-2022 take 1 capsule by mo [facility] once daily S[place]land 7-Xna-Mwb-Fish Oil (Fish Oil) 1,200 (144-216) mg capsule [...] Status: Ordered sildenafil 20 mg oral tablet (3 sources) Phosphodiesterase 5 Inhibitor Start: 04-04-2024 take 1 [...] 1 Start: 10-13-2020 take 1 tablet by [facility] once daily Super B Complex oral tablet [...] 0 Active ciprofloxacin 500 mg oral tablet (6 sources) Quinolone Antimicrobial Start: 01-10-2023 End: 04-04-2024 take 1 tablet by mouth twice daily Ciprofloxacin Hcl (Cipro) 500 mg tablet Discontinued 500 mg PO TWICE A DAY 20 January 10, 2023 12:00am April 04, 2024 12:38pm docusate sodium 100 mg oral capsule (6 sources) Start: 01-10-2023 End: 04-07-2024 take 1 capsule by mouth twice daily Docusate Sodium (Colace) 100 mg capsule Discontinued 100 mg PO TWICE A DAY 20 January 10, 2023 12:00am April 07, 2024 10:59am Ginseng CAPS (1 source) Ginseng CAPS CEASAR E 1 CAPSULE Daily 60-120 mg Refills: 0 Active Multiple Vitamins Oral Tablet (1 source) Multiple Vitamin s Oral Tablet Refills: 0 Active Sutherland 3 500 CAPS (1 source) Sutherland 3 500 CAPS Refills: 0 Active oxyCODONE hydrochloride 5 mg oral tablet (6 sources) Opioid Agonist Start: 01-10-2023 End: 04-07-2024 take 1 tablet by mouth every six hours as needed for pain Oxycodone 5 mg tablet Discontinued 5 mg PO EVERY 6 HOURS as needed for pain 14 7 0 January 10, 2023 April 07, 2024 10:59am Malignant neoplasm of prostate Malignant neoplasm of prostate Super B Complex TABS (1 source) Super B Complex TABS TAKE 1 TABLET DAILY DIRECTED. Refills: 0 Active Problems Active Problems Problem Classification Problem Date Documented Da te Episodic/Chronic Cancer of prostate (19 sources) Malignant tumor of prostate; Translations: [Malignant neoplasm of prostate] Onset: 06-12-2024 01-10-2023 Chronic Diabetes mellitus without complication (1 source) Prediabetes; Translations: [Other abnormal glucose] Episodic Disorders of lipid metabolism (4 sources) Hyperlipidemia; Translations: [Other and unspecified hyperlipidemia] Onset: 03-30-2023 Chronic Residual codes; unclassified (1 source) History finding; Translations: [Other specified conditions influencing health status] Episodic Unclassified (3 sources) Patient encounter status 11-23-2020 Past or Other Problems Problem Classification Problem Date Documented Da te Episodic/Chronic Other screening for suspected conditions (not mental disorders or infectious disease) (7 sources) Elevated prostate specific antigen [PSA]; Translations: [Raised prostate specific antigen] Onset: 03-30-2023 Episodic Residual codes; unclassified (2 sources) Hormone sensitive malignancy status; Translations: [Hormone sensitive malignancy status] Onset: 06-09-2024 Episodic NEGATED: Highlighted row has not occurred!Residual codes; unclassified (1 source) Disease Episodic Results Test Name Value Interpretation Reference Range Facility Abdomen Single Viewon 2024 Abdomen Single View [facility] Imaging Services [address] [place] [address] Abdomen Single View MR#: [id number] Acct: [id number] Name: KARAN WHITE Rep #: [id number] : 1965 M 59 From: Ruben Bryan MD PCP: ROSELYN Mcguire Status: REG CLI Study: Abdomen Single View Date of Exam: 01/21/25 Exam# [id number] Ordering Dr: Victor Hugo Antoine MD PROCEDURE: ABDOMEN SINGLE VIEW 01/21/2025 REASON FOR EXAM: CALCULUS OF KIDNEY TECHNIQUE: Procedure Code: RADABD Modality: DX Procedure: ABDOMEN SINGLE VIEW COMPARISON: None FINDINGS: There is a nonobstructive bowel gas pattern. There are no abnormal soft tissue calcifications project over either renal outline or along the path of either ureter. There is mild dextroscoliosis of the thoracolumbar spine. RAD/Abdomen Single View IMPRESSION: No evidence of acute abdominal pathology. Reading Location: [id number] CC: APPLIANCE SERVICE SUPERVISORMihai Belle; Dr. Victor Hugo Antoine MD Public Improvement Inspector: Signed Normal [facility] PSA,Total- Diagnosticon 09 PSA, DIAGNOSTIC < 0.02 Normal 0.00-4.00 [facility] Comment on above: Result Comment: This test was performed using the [employer] tPSA method. Measured values of a patient??sample can vary depending on the testing procedure used. PSA values determined on patient samples by different testing procedures cannot be used interchangeably. If there is a change in PSA assays while monitoring therapy, sequential testing should be performed to confirm baseline values. Performed By: #### L [id number] #### [facility] [address] [place], [place], [address] PSA,Total- Diagnosticon - PSA, DIAGNOSTIC < 0.02 Normal 0.00-4.00 [facility] Comment on above: Result Comment: This test was performed using the [employer] tPSA method. Measured values of a patient??sample can vary depending on the testing procedure used. PSA values determined on patient samples by different testing procedures cannot be used interchangeably. If there is a change in PSA assays while monitoring therapy, sequential testing should be performed to confirm baseline values. Performed By: #### L [id number] #### [facility] [address] [place], [place], [address] Diagnostic total prostate sp ecific antigen (PSA) measurementOrdered By: Victor Hugo Antoine on 08-18-2024 Prostate Specific Antigen Total 0.04 ng/mL 0.00-4.00 [facility] Comment on above: This test was perfor [...] performed to confirm baseline values. PSA,Total- Diagnosticon - PSA, DIAGNOSTIC 0.04 ng/mL Normal 0.00-4.00 [facility] Comment on above: Result Comment: This test was performed using the [employer] tPSA method. Measured values of a patient??sample can vary depending on the testing procedure used. PSA values determined on patient samples by different testing procedures cannot be used interchangeably. If there is a change in PSA assays while monitoring therapy, sequential testing should be performed to confirm baseline values. Performed By: #### L [id number] #### [facility] [address] [place], [address] Radiation Oncology Visiton 0 07-24-2024 Radiation Oncology Visit [facility] [address] [place] [address] OFFICE VISIT Date of Service: 07/24/24830 MR#: [id number] Acct: [id number] Name: KARAN WHITE Rep #: [id number] : 1965 From: Adis Bush DO Age/Sex: 59/M Location: [facility] Status: Signed End of Treatment Summary: Diagnosis: Karan White is a 59-year-old male diagnosed with 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 Oncologic History: 11/16/2022: Patient completed TRUS guided prostate biopsy.??? Pathology demonstrated [place] 3+3 adenocarcinoma involving about 80% of 1/1 [...] this patient. Sincerely, Adis Bush DO, MS Employment Service Specialist, Department of Radiation Oncology [facility] 07/24/24840 Date Adis Bush DO [facility] Signature: Date (if applicable) CC: ROSELYN Belle; Dr. Victor Hugo Antoine MD Normal [facility] Radiation Oncology Visit [facility] [address] [place] [address] OFFICE VISIT Date of Service: 07/24/24806 MR#: [id number] Acct: [id number] Name: KARAN WHITE Rep #: [id number] : 1965 From: Adis Eleazar DO Age/Sex: 59/M Location: [facility] Status: Signed Intake Vital Signs 04/07/24 10:01 [...] mg PO DAILY 12/27/22 07/24/24 History omega 7-jkn-gaa-fish oil 1,200 mg 1 cap PO DAILY [...] PO DAILY 12/27/22 Unknown H istory omega 9-kef-kdv-fish oil 1,200 mg 1 cap PO DAILY [...] at any time. 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; Z19.1 07/24/24 0831 Date Adis Bush DO Cosigner Signature: Date (if applicable) CC: Normal [facility] Radiation Oncology Visiton 0 07-17-2024 Radiation Oncology Visit [facility] [place] [address] OFFICE VISIT Date of Service: 07/17/24804 MR#: [id number] Acct: [id number] Name: KARAN WHITE Rep #: [id number] : 1965 From: Adis Bush DO Age/Sex: 59/M Location: [facility] Status: Signed Intake Vital Signs 04/07/24 10:01 [...] mg PO DAILY 12/27/22 07/17/24 History omega 1-rze-omg-fish oil 1,200 mg 1 cap PO DAILY [...] PO DAILY 12/27/22 Unknown H istory omega 6-qel-jmb-fish oil 1,200 mg 1 cap PO DAILY [...] at any time. 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; Z19.1 07/17/24818 Date [facility]: Date (if applicable) CC: Normal [facility] Radiation Oncology Visiton 0 07-10-2024 Radiation Oncology Visit [facility] [place] [address] OFFICE VISIT Date of Service: 07/10/24808 MR#: [id number] Acct: [id number] Name: KARAN WHITE Rep #: [id number] : 1965 From: Adis Bush DO Age/Sex: 59/M Location: [facility] Status: Signed Intake Vital Signs 04/07/24 10:01 [...] mg PO DAILY 12/27/22 07/10/24 History omega 1-zlw-wkg-fish oil 1,200 mg 1 cap PO DAILY [...] PO DAILY 12/27/22 Unknown H istory omega 4-wpt-qeq-fish oil 1,200 mg 1 cap PO DAILY [...] at any time. 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; Z19.1 07/10/24830 Date Adis Bush DO [facility] Signature: Date (if applicable) CC: Normal [facility] Radiation Oncology Visiton 0 07-03-2024 Radiation Oncology Visit [facility] [address] [address] OFFICE VISIT Date of Service: 07/03/24814 MR#: [id number] Acct: [id number] Name: KARAN WHITE Rep #: [id number] : 1965 From: Adis Bush DO Age/Sex: 59/M Location: [facility] Status: Signed Intake Vital Signs 04/07/24 10:01 [...] mg PO DAILY 12/27/22 07/03/24 History omega 4-ymz-dle-fish oil 1,200 mg 1 cap PO DAILY [...] PO DAILY 12/27/22 Unknown H istory omega 5-sru-pga-fish oil 1,200 mg 1 cap PO DAILY [...] at any time. 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; Z19.1 07/03/2413 Date [facility]: Date (if applicable) CC: Normal [facility] Radiation Oncology Visiton 0 06-26-2024 Radiation Oncology Visit [facility] [address] [place] [address] OFFICE VISIT Date of Service: 06/26/24 08 MR#: [id number] Acct: [id number] Name: KARAN WHITE Rep #: [id number] : 1965 From: Adis Eleazar MENDES Age/Sex: 59/M Location: [facility] Status: Signed Intake Vital Signs 04/07/24 10:01 [...] mg PO DAILY 12/27/22 06/26/24 History omega 9-phk-jzm-fish oil 1,200 mg 1 cap PO DAILY [...] PO DAILY 12/27/22 Unknown H istory omega 9-wnq-hge-fish oil 1,200 mg 1 cap PO DAILY [...] at any time. 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 [address] OFFICE VISIT Date of Service: 06/19/24 08 MR#: [id number] Acct: [id number] Name: KARAN WHITE Rep #: [id number] : 1965 From: Adis Bush DO Age/Sex: 59/M Location: [facility] Status: Signed Intake Vital Signs 04/07/24 10:01 [...] mg PO DAILY 12/27/22 06/19/24 History omega 9-clq-tkr-fish oil 1,200 mg 1 cap PO DAILY [...] PO DAILY 12/27/22 Unknown H istory omega 1-piz-bbj-fish oil 1,200 mg 1 cap PO DAILY [...] at any time. 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.] mg PO DAILY 12/27/22 06/12/24 History omega 4-jiv-hgg-fish oil 1,200 mg 1 cap PO DAILY [...] mg PO DAILY 12/27/22 Unknown History omega 8-bka-acs-fish oil 1,200 mg 1 cap PO DAILY [...] at any time. 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; Z19.1 06/12/24 0842 Date Adis Bush DO [facility] Signature: Date (if applicable) CC: Normal [facility] .Auto Diffon 05-23-2024 Basophil, Absolute 0.0 10 3/mcL Normal 0.0-0.2 [facility] Comment on above: Performed By: #### P SA, CMP, ANEU, CBC, LIPID, GFR, ADIFF #### [facility] [place] [address] [place], [place] [address] Basophils/100 WBC (Bld) 0.6 % Normal 0.0-2.5 [facility] Comment on above: Performed By: #### P SA, CMP, ANEU, CBC, LIPID, GFR, ADIFF #### [address] [address] Eosinophil, Absolute 0.3 10 3/mcL Normal 0.0-0.7 [facility] Comment on above: Performed By: #### P SA, CMP, ANEU, CBC, LIPID, GFR, ADIFF #### [address] [address] Eosinophils/100 WBC (Bld) 5.4 % Normal 0.0-7.0 [facility] Comment on above: Performed By: #### P SA, CMP, ANEU, CBC, LIPID, GFR, ADIFF #### [address] [address] Lymphocyte, Absolute 0.9 10 3/mcL Normal 0.9-4.3 [facility] Comment on above: Performed By: #### P SA, CMP, ANEU, CBC, LIPID, GFR, ADIFF #### [address] [address] Lymphocytes/100 WBC (Bld) 18.7 % Low 20.0-40.0 [facility] Comment on above: Performed By: #### P SA, CMP, ANEU, CBC, LIPID, GFR, ADIFF #### [address] [address] Monocyte, Absolute 0.5 10 3/mcL Normal 0.1-1.4 [facility] Comment on above: Performed By: #### P SA, CMP, ANEU, CBC, LIPID, GFR, ADIFF #### [address] [address] Monocytes/100 WBC (Bld) 9.3 % Normal 2.0-13.0 [facility] Comment on above: Performed By: #### P SA, CMP, ANEU, CBC, LIPID, GFR, ADIFF #### [address] [address] Neutrophils/100 WBC (Bld) 66.0 % Normal 50.0-75.0 [facility] Comment on above: Performed By: #### P SA, CMP, ANEU, CBC, LIPID, GFR, ADIFF #### [address] [address] .GFRon 05-23-2024 GFR 120 ml/min/1.73sqm Normal [facility] Comment on above: Result Comment: GFR [...] CMP, ANEU, CBC, LIPID, GFR, ADIFF #### [address] [address] GFR Non- 99 ml/min/1.73sqm Normal [facility] Comment on above: Result Comment: GFR [...] CMP, ANEU, CBC, LIPID, GFR, ADIFF #### [address] [address] .NEUABSon 05-23-2024 Neutrophil, Absolute 3.2 10 3/mcL Normal 2.3-8.1 [facility] Comment on above: Performed By: #### P SA, CMP, ANEU, CBC, LIPID, GFR, ADIFF #### [address] [address] CBCon 05-23-2024 Erythrocyte distribution width (RBC) [Ratio] 12.9 % Normal 11.5-15.5 [facility] Comment on above: Performed By: #### P SA, CMP, ANEU, CBC, LIPID, GFR, ADIFF #### [address] [address] Hematocrit (Bld) [Volume fraction] 42.1 % Normal 40.0-52.0 [facility] Comment on above: Performed By: #### P SA, CMP, ANEU, CBC, LIPID, GFR, ADIFF #### [address] [address] Hgb 14.6 G/dL Normal 13.0-17.5 [facility] Comment on above: Performed By: #### P SA, CMP, ANEU, CBC, LIPID, GFR, ADIFF #### [address] [address] MCH (RBC) [Entitic mass] 30.0 pg Normal 27.0-33.0 [facility] Comment on above: Performed By: #### P SA, CMP, ANEU, CBC, LIPID, GFR, ADIFF #### [address] [address] MCHC 34.8 G/dL Normal 32.0-36.0 [facility] Comment on above: Performed By: #### P SA, CMP, ANEU, CBC, LIPID, GFR, ADIFF #### [address] [address] MCV (RBC) [Entitic vol] 86.4 fL Normal 81.0-100.0 [facility] Comment on above: Performed By: #### P SA, CMP, ANEU, CBC, LIPID, GFR, ADIFF #### [address] [address] Platelet 129 10 3/mcL Low 150-450 [facility] Comment on above: Performed By: #### P SA, CMP, ANEU, CBC, LIPID, GFR, ADIFF #### [address] [address] Platelet mean volume (Bld) [Entitic vol] 11.7 fL High 6.4-10.5 [facility] Comment on above: Performed By: #### P SA, CMP, ANEU, CBC, LIPID, GFR, ADIFF #### [address] [address] RBC 4.88 10 6/mcL Normal 4.50-6.00 [facility] Comment on above: Performed By: #### P SA, CMP, ANEU, CBC, LIPID, GFR, ADIFF #### [address] [address] WBC 4.9 10 3/mcL Normal 4.5-10.8 [facility] Comment on above: Performed By: #### P SA, CMP, ANEU, CBC, LIPID, GFR, ADIFF #### [address] [address] CMPon 05-23-2024 Albumin Level 4.3 G/dL Normal 3.5-5.0 [facility] Comment on above: Performed By: #### P SA, CMP, ANEU, CBC, LIPID, GFR, ADIFF #### [address] [address] Albumin/Globulin [Mass ratio] 1.6 {ratio} Normal 1.1-2.5 [facility] Comment on above: Performed By: #### P SA, CMP, ANEU, CBC, LIPID, GFR, ADIFF #### [address] [address] ALP [Catalytic activity/Vol] 78 U/L Normal 40-135 [facility] Comment on above: Performed By: #### P SA, CMP, ANEU, CBC, LIPID, GFR, ADIFF #### [address] [address] ALT [Catalytic activity/Vol] 64 U/L High 16-63 [facility] Comment on above: Performed By: #### P SA, CMP, ANEU, CBC, LIPID, GFR, ADIFF #### [address] [address] AST [Catalytic activity/Vol] 28 U/L Normal 10-40 [facility] Comment on above: Performed By: #### P SA, CMP, ANEU, CBC, LIPID, GFR, ADIFF #### [address] [address] Bili Total 0.8 mg/dL Normal 0.2-1.0 [facility] Comment on above: Result Comment: Use of this assay is not recommended for patients undergoing treatment with eltrombopag due to the potential for falsely elevated results. Performed By: #### P SA, CMP, ANEU, CBC, LIPID, GFR, ADIFF #### [address] [address] BUN/Creatinine Ratio 16 ratio Normal 7-27 [facility] Comment on above: Performed By: #### P SA, CMP, ANEU, CBC, LIPID, GFR, ADIFF #### [address] [address] Calcium [Mass/Vol] 9.0 mg/dL Normal 8.4-10.2 [facility] Comment on above: Performed By: #### P SA, CMP, ANEU, CBC, LIPID, GFR, ADIFF #### [address] [address] Chloride [Moles/Vol] 105 mmol/L Normal 98-107 [facility] Comment on above: Performed By: #### P SA, CMP, ANEU, CBC, LIPID, GFR, ADIFF #### [address] [address] CO2 [Moles/Vol] 31 mmol/L High 22-29 [facility] Comment on above: Performed By: #### P SA, CMP, ANEU, CBC, LIPID, GFR, ADIFF #### [address] [address] Creatinine [Mass/Vol] 0.80 mg/dL Normal 0.70-1.30 [facility] Comment on above: Result Comment: Test ing performed on Siemens Dimension EXL analyzer using a modified kinetic Desean technique. Performed By: #### P SA, CMP, ANEU, CBC, LIPID, GFR, ADIFF #### [address] [address] Electrolyte Balance 8.0 mEq/L Normal 4.0-15.0 [facility] Comment on above: Performed By: #### P SA, CMP, ANEU, CBC, LIPID, GFR, ADIFF #### [address] [address] Globulin 2.7 G/dL Normal [facility] Comment on above: Performed By: #### P SA, CMP, ANEU, CBC, LIPID, GFR, ADIFF #### [address] [address] Glucose [Mass/Vol] 94 mg/dL Normal 70-105 [facility] Comment on above: Performed By: #### P SA, CMP, ANEU, CBC, LIPID, GFR, ADIFF #### [address] [address] Potassium [Moles/Vol] 3.8 mmol/L Normal 3.5-5.1 [facility] Comment on above: Performed By: #### P SA, CMP, ANEU, CBC, LIPID, GFR, ADIFF #### [address] [address] Sodium [Moles/Vol] 144 mmol/L Normal 136-145 [facility] Comment on above: Performed By: #### P SA, CMP, ANEU, CBC, LIPID, GFR, ADIFF #### [address] [address] Total Protein 7.0 G/dL Normal 6.4-8.2 [facility] Comment on above: Performed By: #### P SA, CMP, ANEU, CBC, LIPID, GFR, ADIFF #### [address] [address] Urea nitrogen [Mass/Vol] 13 mg/dL Normal 7-18 [facility] Comment on above: Performed By: #### P SA, CMP, ANEU, CBC, LIPID, GFR, ADIFF #### [facility] [address] [place], [place] [address] LABORATORYOrdered By: SYSTEM SYSTEM on 05-23-2024 Albumin [...] above: Interpretive Data: T esting performed on [employer] Dimension EXL analyzer using a modified kinetic [...] 05-23-2024 Cholesterol [Mass/Vol] 187 mg/dL Normal 0-200 [facility] Comment on above: Result Comment: Chol esterol Reference Interval: Less than 200 Desirable 200-239 Borderline high risk 240 and above High risk Performed By: #### P SA, CMP, ANEU, CBC, LIPID, GFR, ADIFF #### [address] [address] Cholesterol in HDL [Mass/Vol] 61 mg/dL High 40-60 [facility] Comment on above: Performed By: #### P SA, CMP, ANEU, CBC, LIPID, GFR, ADIFF #### [address] [address] Cholesterol in LDL [Mass/Vol] 113 mg/dL Normal 0-130 [facility] Comment on above: Performed By: #### P SA, CMP, ANEU, CBC, LIPID, GFR, ADIFF #### [address] [address] Triglyceride [Mass/Vol] 67 mg/dL Normal 0-150 [facility] Comment on above: Result Comment: Trig lyceride Reference Interval: Less than 150 Normal 150-199 Borderline high risk 200-499 High risk 500 or higher Very high risk Performed By: #### P SA, CMP, ANEU, CBC, LIPID, GFR, ADIFF #### [facility] [address] [place], [place] [address] PSAon 05-23-2024 Prostate Specific Antigen 0.15 ng/mL Normal 0.00-4.00 [facility] Comment on above: Performed By: #### P SA, CMP, ANEU, CBC, LIPID, GFR, ADIFF #### [id number] [place], [place] [address] Diagnostic total prostate sp ecific antigen (PSA) measurementOrdered By: Adis Bush on 05-22-2024 Prostate Specific Antigen Total 0.13 ng/mL 0.0-4.0 [facility] Comment on above: This test was perfor med using the TPSA assay method for theOctro chemistry system. Values obtained with differentassay methods cannot be used interchangably.When changing PSA assays in the course of monitoring apatient, additional sequential testing should be carriedout to confirm baseline values. PSA,Total- Diagnosticon PSA, DIAGNOSTIC 0.13 ng/mL Normal 0.0-4.0 [facility] Comment on above: Result Comment: This test was performed using the TPSA assay method for the Octro chemistry system. Values obtained with different assay methods cannot be used interchangably. When changing PSA assays in the course of monitoring a patient, additional sequential testing should be carried out to confirm baseline values. Performed By: #### L 501.9940 #### [facility] [address] [place], [address] CREATININE FINGERSTICKon CREATININE WB < 1.0 Normal 0.70-1.30 [facility] Comment on above: Performed By: #### L 9100.0200 #### [facility] [address] [place], [address] EGFR WB > 60.0000 Normal >60 [facility] Comment on above: Performed By: #### L 9100.0200 #### [facility] [address] [place], [address] Creatinine measurement at be dsideOrdered By: Adis Bush on 05-08-2024 Bedside Creatinine < 1.0 mg/dL 0.70-1.30 [facility] EGFROrdered By: Adis tinoco on 05-08-2024 Bedside Estimated GFR (eGFR) > 60.0000 mL/min >60 [facility] GFR/1.73 sq M.predicted among non-blacks MDRD (S/P/Bld) [Vol rate/Area] mL/min/{1.73_m2} >60 [facility] Pelvis W/WO Contraston 05-08 Pelvis W/WO Contrast [facility] Imaging Services [address] [facility] [address] [place], [place] [address] Pelvis W/WO Contrast MR#: [id number] Acct: [id number] Name: KARAN WHITE Rep #: [id number] : 1965 M 59 From: August vickers MD PCP: ROSELYN Mcguire Status: REG CLI Study: Pelvis W/WO Contrast Date of Exam: 05/08/24 Exam# [id number] Ordering Dr: Adis Bush DO [id number] STUDY: MR PROSTATE GLAND/ PELVIS WITH T [...] recommended and treated clnically. (Cancers (Basel). 2022May 02;15):4495. doi: [email or web address] 5 Prostate Cancers Invisible on Multiparametric MRI: Pathologic Features in Correlation with Whole-Mount Prostatectomy Zack Maza 1,2,*, Kin Andrews 3, Divine Arriaga 1,2, Caridad Helms 1,2, Gutierrez Mathew 4, Florentino Ricardo 5, Syeda Moreira 6, Ankit Singh 1,2, Slime Montalvo 1,2) Reference information: Normal prostate tissue Benign [...] Signed: August Sanderson MD at 9:23 EST , CC: ROSELYN Belle; Dr. Adis Bush DO Public Improvement Inspector: Signed Normal [facility] PET/CT Tumor Base -Thigh Ini ton 04-15-2024 PET/CT Tumor Base -Thigh Init [facility] Imaging Services [address] [place], [place] [address] PET/CT Tumor Base -Thigh Init MR#: [id number] Acct: [id number] Name: KARAN WHITE Rep #: [id number] : 1965 M 59 From: Eze Doshi PCP: ROSELYN Mcguire Status: REG RCR Study: PET/CT Tumor Base -Thigh Init Date of Exam: Exam# [id number] Ordering Dr: Adis Bush DO [id number] EXAMINATION: F [address] [...] The examination was interpreted using the EANM (Fanti et al., Journal of Nuclear Medicine Molecular [...] this report are calculated using the exclusive [employer], ([place].S. Patent No. [phone] [place] patent [phone] ). Standardization and correction of the FDG SUV metric exclusively available with [employer] intellectual property, allow for vendor non-specific objective quantitative sequential FDG PET-CT comparison and otherwise unobtainable optimization of the sensitivity and specificity of the examination. [email or web address] Electronically Signed: Eze Reyes DO at 13:56 EST , CC: ROSELYN Belle; Dr. Adis Bush DO Public Improvement Inspector: Signed Normal [facility] Radiation Oncology Visiton 1 06-07-2023 Radiation Oncology Visit [facility] [place] [address] OFFICE VISIT Date of Service: 04/07/24 0956 MR#: [id number] Acct: [id number] Name: KARAN WHITE Rep #: [id number] : 1965 From: Adis Bush DO Age/Sex: 59/M Location: [facility] [place] Status: Signed Intake Vital Signs 01/10/23 10:14 [...] mg PO DAILY 12/27/22 04/07/24 History omega 2-fzl-kua-fish oil 1,200 mg 1 cap PO DAILY [...] mg PO DAILY 12/27/22 Unknown History omega 8-kbu-azf-fish oil 1,200 mg 1 cap PO DAILY [...] completed TRUS guided prostate biopsy.??? 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 All remaining biopsies were negative. 01/10/2023: Patient completed laparoscopic robotic radical prostatectomy.??? 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 He denies cough, shortness of breath, chest pain, bone pain. He denies fatigue or unexpected weight changes. He completes all ADLs without any difficulty denies having other (more content not included)... Normal [facility] PSA,Total- Diagnosticon PSA, DIAGNOSTIC 0.13 ng/mL Normal 0.0-4.0 [facility] Comment on above: Result Comment: This test was performed using the TPSA assay method for the Octro chemistry system. Values obtained with different assay methods cannot be used interchangably. When changing PSA assays in the course of monitoring a patient, additional sequential testing should be carried out to confirm baseline values. Performed By: #### L 501.9940 #### [facility] [address] [place], [place], [address] No Panel InformationOrdered By: Victor Hugo Antoine on 05-28-2023 Prostate Specific Antigen Total 0.02 ng/mL 0.0-4.0 [facility] Comment on above: This test was perfor med using the TPSA assay method for [employer] chemistry system. Values obtained with differentassay methods cannot be used interchangably.When changing PSA assays in the course of monitoring apatient, additional sequential testing should be carriedout to confirm baseline values. LIPIDon 03-30-2023 Cholesterol [Mass/Vol] 191 mg/dL Normal 0-200 [facility] ([place]) Comment on above: Result Comment: Chol esterol Reference Interval: Less than 200 Desirable 200-239 Borderline high risk 240 and above High risk Performed By: #### L IPID #### [facility] [address] [place], [place] [address] Cholesterol in HDL [Mass/Vol] 65 mg/dL High 40-60 [facility] ([place]) Comment on above: Performed By: #### L IPID #### [facility] [address] [place], [place] [address] Cholesterol in LDL [Mass/Vol] 114 mg/dL Normal 0-130 [facility] ([place]) Comment on above: Performed By: #### L IPID #### [facility] [place] [address] [place], [place] [address] Triglyceride [Mass/Vol] 60 mg/dL Normal 0-150 [facility] ([place]) Comment on above: Result Comment: Trig lyceride Reference Interval: Less than 150 Normal 150-199 Borderline high risk 200-499 High risk 500 or higher Very high risk Performed By: #### L IPID #### [address] [place], [place] [address] No Panel InformationOrdered By: Madie Yen on 02-26-2023 Prostate Specific Antigen Total 0.02 ng/mL 0.0-4.0 [facility] Comment on above: This test was perfor med using the TPSA assay method for theOctro chemistry system. Values obtained with differentassay methods cannot be used interchangably.When changing PSA assays in the course of monitoring apatient, additional sequential testing should be carriedout to confirm baseline values. Basophil percentageOrdered B y: Octaviano Walker on 01-02-2023 WBC (Bld) [#/Vol] 4.7 10*3/uL 4.4-11.0 [facility] Blood erythrocytes count (nu mber/volume)Ordered By: Octaviano Walker on 01-02-2023 RBC (Bld) [#/Vol] 5.27 10*6/uL 4.6-6.2 [facility] Blood hemoglobin measurement (mass/volume)Ordered By: Octaviano Walker on 01-02-2023 Hemoglobin (Bld) [Mass/Vol] 15.2 g/dL 13.0-16.5 [facility] Blood platelet mean volumeOr dered By: Octaviano Walker on 01-02-2023 Platelet mean volume (Bld) [Entitic vol] 12.6 fL 6.2-12.0 [facility] Determination of erythrocyte mean corpuscular volume (MCV)Ordered By: Octaviano Walker on 01-02-2023 MCV (RBC) [Entitic vol] 85.2 fL 80-94 [facility] Hematocrit Auto (Bld) [Volum e fraction]Ordered By: Octaviano Walker on 01-02-2023 Hematocrit (Bld) [Volume fraction] 44.9 % 40-54 [facility] Laboratory - Hematology and Cell countsOrdered By: Octaviano Walker on 01-02-2023 Erythrocyte distribution width (RBC) [Entitic vol] 40.2 fL 35.1-43.9 [facility] Erythrocyte distribution width (RBC) [Ratio] 12.9 % 11.6-14.6 [facility] MCH (RBC) [Entitic mass] 28.8 pg 27.0-32.0 [facility] MCHC Auto (RBC) [Mass/Vol]Or dered By: Octaviano Walker on 01-02-2023 MCHC (RBC) [Mass/Vol] 33.9 g/dL 32-[address] [facility] Platelets bldOrdered By: Neeta Walker on 01-02-2023 Platelets (Bld) [#/Vol] 172 10*3/uL 150-450 [facility] .Auto Diffon 09-16-2022 Basophil, Absolute 0.0 10 3/mcL Normal 0.0-0.2 [facility] ([place]) Comment on above: Performed By: #### A BRYN, ADIFF, CMP, CBC, GFR, PSA, LIPID #### [address] [address] Basophils/100 WBC (Bld) 0.4 % Normal 0.0-2.5 [facility] ([place]) Comment on above: Performed By: #### A BRYN, ADIFF, CMP, CBC, GFR, PSA, LIPID #### [address] [place], [place] [address] Eosinophil, Absolute 0.2 10 3/mcL Normal 0.0-0.4 [facility] [place] Comment on above: Performed By: #### A BRYN, ADIFF, CMP, CBC, GFR, PSA, LIPID #### [address] [address] Eosinophils/100 WBC (Bld) 4.4 % Normal 0.0-7.0 [facility] ([place] Comment on above: Performed By: #### A BRYN, ADIFF, CMP, CBC, GFR, PSA, LIPID #### [address] [address] Lymphocyte, Absolute 1.6 10 3/mcL Normal 0.8-3.9 [facility] [place] Comment on above: Performed By: #### A BRYN, ADIFF, CMP, CBC, GFR, PSA, LIPID #### [address] [address] Lymphocytes/100 WBC (Bld) 30.2 % Normal 10.0-50.0 [facility] ([place] Comment on above: Performed By: #### A BRYN, ADIFF, CMP, CBC, GFR, PSA, LIPID #### [address] [address] Monocyte, Absolute 0.5 10 3/mcL Normal 0.2-1.0 [facility] ([place] Comment on above: Performed By: #### A BRYN, ADIFF, CMP, CBC, GFR, PSA, LIPID #### [address] [address] Monocytes/100 WBC (Bld) 9.8 % Normal 1.7-13.0 [facility] ([place] Comment on above: Performed By: #### A BRYN, ADIFF, CMP, CBC, GFR, PSA, LIPID #### [address] [address] Neutrophils/100 WBC (Bld) 55.2 % Normal 37.0-80.0 [facility] ([place] Comment on above: Performed By: #### A BRYN, ADIFF, CMP, CBC, GFR, PSA, LIPID #### [address] [address] .GFRon 09-16-2022 GFR 103 ml/min/1.73sqm Normal [facility] ([place]) Comment on above: Result Comment: GFR Population [...] ADIFF, CMP, CBC, GFR, PSA, LIPID #### [address] [address] GFR Non- 85 ml/min/1.73sqm Normal [facility] ([place]) Comment on above: Result Comment: GFR Population [...] ADIFF, CMP, CBC, GFR, PSA, LIPID #### [address] [address] .NEUABSon 09-16-2022 Neutrophil, Absolute 2.9 10 3/mcL Normal 2.9-6.2 [facility] [place] Comment on above: Performed By: #### A BRYN, ADIFF, CMP, CBC, GFR, PSA, LIPID #### [address] [address] CBCon 09-16-2022 Erythrocyte distribution width (RBC) [Ratio] 13.1 % Normal 11.5-14.5 [facility] ([place]) Comment on above: Performed By: #### A BRYN, ADIFF, CMP, CBC, GFR, PSA, LIPID #### [address] [address] Hematocrit (Bld) [Volume fraction] 43.1 % Normal 42.0-52.0 [facility] ([place] Comment on above: Performed By: #### A BRYN, ADIFF, CMP, CBC, GFR, PSA, LIPID #### [address] [address] Hgb 14.9 G/dL Normal 14.0-18.0 [facility] ([place]) Comment on above: Performed By: #### A BRYN, ADIFF, CMP, CBC, GFR, PSA, LIPID #### [address] [address] MCH (RBC) [Entitic mass] 28.6 pg Normal 27.0-31.2 [facility] ([place]) Comment on above: Performed By: #### A BRYN, ADIFF, CMP, CBC, GFR, PSA, LIPID #### [address] [address] MCHC 34.6 G/dL Normal 31.8-35.4 [facility] ([place]) Comment on above: Performed By: #### A BRYN, ADIFF, CMP, CBC, GFR, PSA, LIPID #### [address] [address] MCV (RBC) [Entitic vol] 82.7 fL Normal 80.0-94.0 [facility] ([place] Comment on above: Performed By: #### A BRYN, ADIFF, CMP, CBC, GFR, PSA, LIPID #### [address] [address] Platelet 207 10 3/mcL Normal 130-400 [facility] ([place]) Comment on above: Performed By: #### A BRYN, ADIFF, CMP, CBC, GFR, PSA, LIPID #### [address] [address] Platelet mean volume (Bld) [Entitic vol] 9.8 fL Normal 7.4-10.4 [facility] ([place]) Comment on above: Performed By: #### A BRYN, ADIFF, CMP, CBC, GFR, PSA, LIPID #### [address] [address] RBC 5.21 10 6/mcL Normal 4.04-6.13 [facility] ([place]) Comment on above: Performed By: #### A BRYN, ADIFF, CMP, CBC, GFR, PSA, LIPID #### [address] [address] WBC 5.3 10 3/mcL Normal 4.6-10.8 [facility] ([place]) Comment on above: Performed By: #### A BRYN, ADIFF, CMP, CBC, GFR, PSA, LIPID #### [address] [address] CMPon 09-16-2022 Albumin Level 4.1 G/dL Normal 3.5-5.0 [facility] ([place]) Comment on above: Performed By: #### A BRYN, ADIFF, CMP, CBC, GFR, PSA, LIPID #### [address] [address] Albumin/Globulin [Mass ratio] 1.4 {ratio} Normal 1.1-2.5 [facility] ([place]) Comment on above: Performed By: #### A BRYN, ADIFF, CMP, CBC, GFR, PSA, LIPID #### [address] [address] ALP [Catalytic activity/Vol] 72 U/L Normal 40-135 [facility] ([place]) Comment on above: Performed By: #### A BRYN, ADIFF, CMP, CBC, GFR, PSA, LIPID #### [address] [address] ALT [Catalytic activity/Vol] 26 U/L Normal 16-63 [facility] ([place] Comment on above: Performed By: #### A BRYN, ADIFF, CMP, CBC, GFR, PSA, LIPID #### [address] [address] AST [Catalytic activity/Vol] 15 U/L Normal 10-40 [facility] ([place] Comment on above: Performed By: #### A BRYN, ADIFF, CMP, CBC, GFR, PSA, LIPID #### [address] [address] Bili Total 0.7 mg/dL Normal 0.2-1.0 [facility] ([place]) Comment on above: Result Comment: Use of this assay is not recommended for patients undergoing treatment with eltrombopag due to the potential for falsely elevated results. Performed By: #### A BRYN, ADIFF, CMP, CBC, GFR, PSA, LIPID #### [address] [address] BUN/Creatinine Ratio 13 ratio Normal 7-27 [facility] ([place] Comment on above: Performed By: #### A BRYN, ADIFF, CMP, CBC, GFR, PSA, LIPID #### [address] [address] Calcium [Mass/Vol] 9.2 mg/dL Normal 8.4-10.2 [facility] ([place]) Comment on above: Performed By: #### A BRYN, ADIFF, CMP, CBC, GFR, PSA, LIPID #### [address] [address] Chloride [Moles/Vol] 104 mmol/L Normal 98-107 [facility] ([place] Comment on above: Performed By: #### A BRYN, ADIFF, CMP, CBC, GFR, PSA, LIPID #### [address] [address] CO2 [Moles/Vol] 28 mmol/L Normal 22-29 [facility] ([place]) Comment on above: Performed By: #### A BRYN, ADIFF, CMP, CBC, GFR, PSA, LIPID #### [address] [address] Creatinine [Mass/Vol] 0.92 mg/dL Normal 0.70-1.30 [facility] ([place]) Comment on above: Performed By: #### A BRYN, ADIFF, CMP, CBC, GFR, PSA, LIPID #### [address] [address] Electrolyte Balance 9.0 mEq/L Normal 4.0-15.0 [facility] ([place]) Comment on above: Performed By: #### A BRYN, ADIFF, CMP, CBC, GFR, PSA, LIPID #### [address] [address] Globulin 2.9 G/dL Normal [facility] ([place]) Comment on above: Performed By: #### A BRYN, ADIFF, CMP, CBC, GFR, PSA, LIPID #### [address] [address] Glucose [Mass/Vol] 100 mg/dL Normal 70-105 [facility] ([place]) Comment on above: Performed By: #### A BRYN, ADIFF, CMP, CBC, GFR, PSA, LIPID #### [address] [address] Potassium [Moles/Vol] 4.6 mmol/L Normal 3.5-5.1 [facility] ([place]) Comment on above: Performed By: #### A BRYN, ADIFF, CMP, CBC, GFR, PSA, LIPID #### [address] [address] Sodium [Moles/Vol] 141 mmol/L Normal 136-145 [facility] ([place]) Comment on above: Performed By: #### A BRYN, ADIFF, CMP, CBC, GFR, PSA, LIPID #### [address] [address] Total Protein 7.0 G/dL Normal 6.4-8.2 [facility] ([place]) Comment on above: Performed By: #### A BRYN, ADIFF, CMP, CBC, GFR, PSA, LIPID #### [address] [address] Urea nitrogen [Mass/Vol] 12 mg/dL Normal 7-18 [facility] ([place] Comment on above: Performed By: #### A BRYN, ADIFF, CMP, CBC, GFR, PSA, LIPID #### [address] [address] LABORATORYOrdered By: SYSTEM SYSTEM on 09-16-2022 Albumin [...] 09-16-2022 Cholesterol [Mass/Vol] 218 mg/dL High 0-200 [facility] ([place]) Comment on above: Result Comment: Chol esterol Reference Interval: Less than 200 Desirable 200-239 Borderline high risk 240 and above High risk Performed By: #### A BRYN, ADIFF, CMP, CBC, GFR, PSA, LIPID #### [id number] [place], [place] [address] Cholesterol in HDL [Mass/Vol] 47 mg/dL Normal 40-60 [facility] ([place]) Comment on above: Performed By: #### A BRYN, ADIFF, CMP, CBC, GFR, PSA, LIPID #### [id number] [place], [place] [address] Cholesterol in LDL [Mass/Vol] 144 mg/dL High 0-130 [facility] ([place] Comment on above: Performed By: #### A BRYN, ADIFF, CMP, CBC, GFR, PSA, LIPID #### [id number] [place], [place] [address] Triglyceride [Mass/Vol] 137 mg/dL Normal 0-150 [facility] ([place]) Comment on above: Result Comment: Trig lyceride Reference Interval: Less than 150 Normal 150-199 Borderline high risk 200-499 High risk 500 or higher Very high risk Performed By: #### A BRYN, ADIFF, CMP, CBC, GFR, PSA, LIPID #### [id number] [place], [place] [address] PSAon 09-16-2022 Prostate Specific Antigen 9.61 ng/mL High 0.00-4.00 [facility] ([place]) Comment on above: Performed By: #### A BRYN, ADIFF, CMP, CBC, GFR, PSA, LIPID #### Jakob [address] [address] CBC AND DIFFERENTIALon 01-26 % AUTOMATED IMMATURE GRAN 0.5 % Normal 0.0 - 0.9 [facility] Comment on above: Order Comment: PATIE NT FASTING Result Comment: Perc ent differential counts (%) should be interpreted in the context of the absolute cell counts (cells/L). Performed By: #### C BCDF ####[id number] [place] [address] % NEUTROPHIL 55.0 % Normal 40.0 - 80.0 [facility] Comment on above: Order Comment: PATIE NT FASTING Performed By: #### C BCDF ####[id number] [place] [address] Basophils/100 WBC Auto (Bld) 0.3 % Normal 0.0 - 2.0 [facility] Comment on above: Order Comment: PATIE NT FASTING Performed By: #### C BCDF ####[id number] [place] [address] Basophils/100 WBC Auto (Bld) 0.02 x10E9/L Normal 0.00 - 0.10 [facility] Comment on above: Order Comment: PATIE NT FASTING Performed By: #### C BCDF ####[id number] [place] [address] Eosinophils 0.21 10*3/uL Normal 0.00 - 0.70 [facility] Comment on above: Order Comment: PATIE NT FASTING Performed By: #### C BCDF ####[id number] [place] [address] Eosinophils/100 leukocytes 3.6 % Normal 0.0 - 6.0 [facility] Comment on above: Order Comment: PATIE NT FASTING Performed By: #### C BCDF ####[id number] [place] [address] Erythrocyte distribution width Auto Ratio (RBC) 12.8 % Normal 11.5 - 14.5 [facility] Comment on above: Order Comment: PATIE NT FASTING Performed By: #### C BCDF ####[id number] [place] [address] Erythrocytes (RBC) 5.17 x10E12/L Normal 4.50 - 5.90 [facility] Comment on above: Order Comment: PATIE NT FASTING Performed By: #### C BCDF ####[id number] [place] [address] Hematocrit (HCT) 43.5 % Normal 41.0 - 52.0 [facility] Comment on above: Order Comment: PATIE NT FASTING Performed By: #### C BCDF ####[id number] [place] [address] Hemoglobin mass conc (Bld) 15.2 g/dL Normal 13.5 - 17.5 [facility] Comment on above: Order Comment: PATIE NT FASTING Performed By: #### C BCDF ####[id number] [place] [address] Lymphocytes 1.78 10*3/uL Normal 1.20 - 4.80 [facility] Comment on above: Order Comment: PATIE NT FASTING Performed By: #### C BCDF ####[id number] [place] [address] Lymphocytes/100 leukocytes 30.6 % Normal 13.0 - 44.0 [facility] Comment on above: Order Comment: PATIE NT FASTING Performed By: #### C BCDF ####[id number] [place] [address] MCHC mass conc (RBC) 34.9 g/dL Normal 32.0 - 36.0 [facility] Comment on above: Order Comment: PATIE NT FASTING Performed By: #### C BCDF ####[id number] [place] [address] MCV 84 fL Normal 80 - 100 [facility] Comment on above: Order Comment: PATIE NT FASTING Performed By: #### C BCDF ####[id number] [place] [address] Monocytes 0.58 10*3/uL Normal 0.10 - 1.00 [facility] Comment on above: Order Comment: PATIE NT FASTING Performed By: #### C BCDF ####[id number] [place] [address] Monocytes/100 leukocytes 10.0 % Normal 2.0 - 10.0 [facility] Comment on above: Order Comment: PATIE NT FASTING Performed By: #### C BCDF ####[id number] [place] [address] Neutrophils 3.20 10*3/uL Normal 1.20 - 7.70 [facility] Comment on above: Order Comment: PATIE NT FASTING Performed By: #### C BCDF ####[id number] [place] [address] Nucleated erythrocytes 0.0 /100 WBC Normal 0.0-0.0 [facility] Comment on above: Order Comment: PATIE NT FASTING Performed By: #### C BCDF ####[id number] [place] [address] Platelets 192 10*3/uL Normal 150 - 450 [facility] Comment on above: Order Comment: PATIE NT FASTING Performed By: #### C BCDF ####[id number] [place] [address] WBC (Leukocytes) 5.8 10*3/uL Normal 4.4 - 11.3 [facility] Comment on above: Order Comment: PATIE NT FASTING Performed By: #### C BCDF ####[id number] [place] [address] COMPREHENSIVE PANELon 2016 Alanine aminotransferase (ALT) 23 U/L Normal 10 - 52 [facility] Comment on above: Order Comment: PATIE NT FASTING Result Comment: Jessi ents treated with Sulfasalazine may generate falsely decreased results for ALT. Performed By: #### C MP ####[id number] [place] [address] Albumin 4.5 g/dL Normal 3.4 - 5.0 [facility] Comment on above: Order Comment: PATIE NT FASTING Performed By: #### C MP ####[id number] [place] [address] Alkaline phosphatase (ALP) 65 U/L Normal 33 - 120 [facility] Comment on above: Order Comment: PATIE NT FASTING Performed By: #### C MP ####[id number] [place] [address] Anion gap 15 mmol/L Normal 10 - 20 [facility] Comment on above: Order Comment: PATIE NT FASTING Performed By: #### C MP ####[id number] [place] [address] Aspartate aminotransferase (AST) 20 U/L Normal 9 - 39 [facility] Comment on above: Order Comment: PATIE NT FASTING Performed By: #### C MP ####[id number] [place] [address] Bicarbonate (HCO3) 26 mmol/L Normal 21 - 32 [facility] Comment on above: Order Comment: PATIE NT FASTING Performed By: #### C MP ####[id number] [place] [address] Bilirubin (total) 0.5 mg/dL Normal 0.0 - 1.2 [facility] Comment on above: Order Comment: PATIE NT FASTING Performed By: #### C MP ####[id number] [place] [address] Calcium 9.5 mg/dL Normal 8.6 - 10.6 [facility] Comment on above: Order Comment: PATIE NT FASTING Performed By: #### C MP ####[id number] [place] [address] Chloride 105 mmol/L Normal 98 - 107 [facility] Comment on above: Order Comment: PATIE NT FASTING Performed By: #### C MP ####[id number] [place] [address] Creatinine 0.81 mg/dL Normal 0.50 - 1.30 [facility] Comment on above: Order Comment: PATIE NT FASTING Performed By: #### C MP ####[id number] [place] [address] eGFR (non-black) mL/min/{1.73_m2} Normal >60 [facility] Comment on above: Order Comment: PATIE NT FASTING Result Comment: CALC ULATIONS OF ESTIMATED GFR ARE PERFORMED USING THE MDRD STUDY EQUATION FOR THE IDMS-TRACEABLE CREATININE METHODS. CLIN CHEM 2007;53:766-72 Performed By: #### C MP ####[id number] [place] [address] Glucose mass conc 104 mg/dL High 74 - 99 [facility] Comment on above: Order Comment: PATIE NT FASTING Performed By: #### C MP ####[id number] [place] [address] Potassium molar conc 4.6 mmol/L Normal 3.5 - 5.3 [facility] Comment on above: Order Comment: PATIE NT FASTING Performed By: #### C MP ####[id number] [place] [address] Protein 7.3 g/dL Normal 6.4 - 8.2 [facility] Comment on above: Order Comment: PATIE NT FASTING Performed By: #### C MP ####[id number] [place] [address] Sodium 141 mmol/L Normal 136 - 145 [facility] Comment on above: Order Comment: PATIE NT FASTING Performed By: #### C MP ####[id number] [place] [address] Urea nitrogen 14 mg/dL Normal 6 - 23 [facility] Comment on above: Order Comment: PATIE NT FASTING Performed By: #### C MP ####[id number] [place] [address] LIPID PANEL (CORONARY RISK 2 )on 01-26-2017 Cholesterol 253 mg/dL High 0 - 199 [facility] Comment on above: Order Comment: [...] Metamizole dosing. Performed By: #### L IPID ####[id number] [place] [address] Cholesterol in VLDL mass conc 28 mg/dL Normal 0 - 40 [facility] Comment on above: Order Comment: PATIE NT FASTING Performed By: #### L IPID ####[id number] [place] [address] Cholesterol to HDL Ratio 5.1 {ratio} Abnormal [facility] Comment on above: Order Comment: PATIE NT FASTING Result Comment: REF VALUESDESIRABLE < 3.4HIGH RISK > 5.0 Performed By: #### L IPID ####[id number] [place] [address] HDL Cholesterol 49.4 mg/dL Normal [facility] Comment on above: Order Comment: PATIE NT FASTING Result Comment: . AG E VERY LOW LOW NORMAL HIGH 0-19 Y < 35 < 40 40-45 ---- 20-24 Y ---- < 40 >45 ---- >24 Y ---- < 40 40-60 >60. Performed By: #### L IPID ####[id number] [place] [address] LDL Cholesterol 176 mg/dL High 0 - 99 [facility] Comment on above: Order Comment: PATIE NT FASTING Result Comment: . SHEA NIXON AGE DESIRABLE OPTIMAL HIGH HIGH VERY HIGH 0-19 Y 0 - 109 --- 110-129 >/= 130 ---- 20-24 Y 0 - 119 --- 120-159 >/= 160 ---- >24 Y 0 - 99 100-129 130-159 160-189 >/=190. Performed By: #### L IPID ####[id number] [place] [address] Triglyceride 140 mg/dL Normal 0 - 149 [facility] Comment on above: Order Comment: [...] Metamizole dosing. Performed By: #### L IPID ####[id number] [place] [address] Vital Signs Date Time Vital Sign Value Performing Clinician Katy sampson 07-24-2024 08:110500 Body height 182.88 cm Deonte DEMPSEY Work Phone: [facility] 07-24-2024 08:110500 Body mass index (BMI) [Ratio] 26 kg/m2 Deonte Baltes APPLIANCE SERVICE SUPERVISOR-C Work Phone: [facility] 07-24-2024 08:11-0500 Body temperature 96.4 [degF] Deonte Baltes APPLIANCE SERVICE SUPERVISOR-C Work Phone: [facility] 07-24-2024 08:11-0500 Body weight 87.2 kg Deonte Baltes APPLIANCE SERVICE SUPERVISOR-C Work Phone: [facility] 07-24-2024 08:11-0500 Diastolic blood pressure 88 mm[Hg] Deonte Baltes APPLIANCE SERVICE SUPERVISOR-C Work Phone: [facility] 07-24-2024 08:11-0500 Heart rate 54 /min Deonte Baltes APPLIANCE SERVICE SUPERVISOR-C Work Phone: [facility] 07-24-2024 08:11-0500 Respiratory rate 18 /min Deonte Baltes APPLIANCE SERVICE SUPERVISOR-C Work Phone: [facility] 07-24-2024 08:11-0500 SaO2% (BldA) [Mass fraction] 100 % Deonte Baltes APPLIANCE SERVICE SUPERVISOR-C Work Phone: [facility] 07-24-2024 08:11-0500 Systolic blood pressure 151 mm[Hg] Deonte Baltes APPLIANCE SERVICE SUPERVISOR-C Work Phone: [facility] 07-17-2024 08:09-0500 Body mass index (BMI) [Ratio] 25.6 kg/m2 Deonte Baltes APPLIANCE SERVICE SUPERVISOR-C Work Phone: [facility] 07-17-2024 08:09-0500 Body temperature 96.8 [degF] Deonte Baltes APPLIANCE SERVICE SUPERVISOR-C Work Phone: [facility] 07-17-2024 08:09-0500 Body weight 85.75 kg Deonte Baltes APPLIANCE SERVICE SUPERVISOR-C Work Phone: [facility] 07-17-2024 08:09-0500 Diastolic blood pressure 80 mm[Hg] Deonte Baltes APPLIANCE SERVICE SUPERVISOR-C Work Phone: [facility] 07-17-2024 08:09-0500 Heart rate 55 /min Deonte Baltes APPLIANCE SERVICE SUPERVISOR-C Work Phone: [facility] 07-17-2024 08:09-0500 Respiratory rate 18 /min Deonte Baltes APPLIANCE SERVICE SUPERVISOR-C Work Phone: [facility] 07-17-2024 08:09-0500 SaO2% (BldA) [Mass fraction] 100 % Deonte Baltes APPLIANCE SERVICE SUPERVISOR-C Work Phone: [facility] 07-17-2024 08:09-0500 Systolic blood pressure 137 mm[Hg] Deonte Baltes APPLIANCE SERVICE SUPERVISOR-C Work Phone: [facility] 07-10-2024 08:09-0500 Body mass index (BMI) [Ratio] 25.2 kg/m2 Deonte Baltes APPLIANCE SERVICE SUPERVISOR-C Work Phone: [facility] 07-10-2024 08:09-0500 Body temperature 97.6 [degF] Deonte Baltes APPLIANCE SERVICE SUPERVISOR-C Work Phone: [facility] 07-10-2024 08:09-0500 Body weight 84.56 kg Deonte Baltes APPLIANCE SERVICE SUPERVISOR-C Work Phone: [facility] 07-10-2024 08:09-0500 Diastolic blood pressure 84 mm[Hg] Deonte Baltes APPLIANCE SERVICE SUPERVISOR-C Work Phone: [facility] 07-10-2024 08:09-0500 Heart rate 58 /min Deonte Baltes APPLIANCE SERVICE SUPERVISOR-C Work Phone: [facility] 07-10-2024 08:09-0500 Respiratory rate 18 /min Deonte Baltes APPLIANCE SERVICE SUPERVISOR-C Work Phone: [facility] 07-10-2024 08:09-0500 SaO2% (BldA) [Mass fraction] 100 % Deonte Baltes APPLIANCE SERVICE SUPERVISOR-C Work Phone: [facility] 07-10-2024 08:09-0500 Systolic blood pressure 150 mm[Hg] Deonte Baltes APPLIANCE SERVICE SUPERVISOR-C Work Phone: [facility] 07-03-2024 08:27-0500 Body mass index (BMI) [Ratio] 25.7 kg/m2 Deonte Baltes APPLIANCE SERVICE SUPERVISOR-C Work Phone: [facility] 07-03-2024 08:27-0500 Body temperature 96.6 [degF] Doente Baltes APPLIANCE SERVICE SUPERVISOR-C Work Phone: [facility] 07-03-2024 08:27-0500 Body weight 85.95 kg Deonte Baltes APPLIANCE SERVICE SUPERVISOR-C Work Phone: [facility] 07-03-2024 08:27-0500 Diastolic blood pressure 78 mm[Hg] Deonte Baltes APPLIANCE SERVICE SUPERVISOR-C Work Phone: [facility] 07-03-2024 08:27-0500 Heart rate 53 /min Deonte Baltes APPLIANCE SERVICE SUPERVISOR-C Work Phone: [facility] 07-03-2024 08:27-0500 Respiratory rate 18 /min Deonte Baltes APPLIANCE SERVICE SUPERVISOR-C Work Phone: [facility] 07-03-2024 08:27-0500 SaO2% (BldA) [Mass fraction] 100 % Deonte Baltes APPLIANCE SERVICE SUPERVISOR-C Work Phone: [facility] 07-03-2024 08:27-0500 Systolic blood pressure 147 mm[Hg] Deonte Baltes APPLIANCE SERVICE SUPERVISOR-C Work Phone: [facility] 06-26-2024 08:05-0500 Body mass index (BMI) [Ratio] 25.8 kg/m2 Deonte Baltes APPLIANCE SERVICE SUPERVISOR-C Work Phone: [facility] 06-26-2024 08:05-0500 Body temperature 96.7 [degF] Deonte Baltes APPLIANCE SERVICE SUPERVISOR-C Work Phone: [facility] 06-26-2024 08:05-0500 Body weight 86.4 kg Deonte Baltes APPLIANCE SERVICE SUPERVISOR-C Work Phone: [facility] 06-26-2024 08:05-0500 Diastolic blood pressure 76 mm[Hg] Deonte Baltes APPLIANCE SERVICE SUPERVISOR-C Work Phone: [facility] 06-26-2024 08:05-0500 Heart rate 53 /min Deonte Baltes APPLIANCE SERVICE SUPERVISOR-C Work Phone: [facility] 06-26-2024 08:05-0500 Respiratory rate 16 /min Deonte Baltes APPLIANCE SERVICE SUPERVISOR-C Work Phone: [facility] 06-26-2024 08:05-0500 SaO2% (BldA) [Mass fraction] 99 % Deonte Baltes APPLIANCE SERVICE SUPERVISOR-C Work Phone: [facility] 06-26-2024 08:05-0500 Systolic blood pressure 127 mm[Hg] Deonte Baltes APPLIANCE SERVICE SUPERVISOR-C Work Phone: [facility] 06-19-2024 08:05-0500 Body mass index (BMI) [Ratio] 25.8 kg/m2 Deonte Baltes APPLIANCE SERVICE SUPERVISOR-C Work Phone: [facility] 06-19-2024 08:05-0500 Body temperature 96.4 [degF] Deonte Baltes APPLIANCE SERVICE SUPERVISOR-C Work Phone: [facility] 06-19-2024 08:05-0500 Body weight 86.43 kg Deonte Baltes APPLIANCE SERVICE SUPERVISOR-C Work Phone: [facility] 06-19-2024 08:05-0500 Diastolic blood pressure 88 mm[Hg] Deonte Baltes APPLIANCE SERVICE SUPERVISOR-C Work Phone: [facility] 06-19-2024 08:05-0500 Heart rate 55 /min Deonte Baltes APPLIANCE SERVICE SUPERVISOR-C Work Phone: [facility] 06-19-2024 08:05-0500 Respiratory rate 16 /min Deonte Baltes APPLIANCE SERVICE SUPERVISOR-C Work Phone: [facility] 06-19-2024 08:05-0500 SaO2% (BldA) [Mass fraction] 100 % Deonte Baltes APPLIANCE SERVICE SUPERVISOR-C Work Phone: [facility] 06-19-2024 08:05-0500 Systolic blood pressure 138 mm[Hg] Deonte Baltes APPLIANCE SERVICE SUPERVISOR-C Work Phone: [facility] 06-12-2024 08:06-0500 Body mass index (BMI) [Ratio] 25.7 kg/m2 Deonte Baltes APPLIANCE SERVICE SUPERVISOR-C Work Phone: [facility] 06-12-2024 08:06-0500 Body temperature 97.8 [degF] Deonte Baltes APPLIANCE SERVICE SUPERVISOR-C Work Phone: [facility] 06-12-2024 08:06-0500 Body weight 86.29 kg Deonte Baltes APPLIANCE SERVICE SUPERVISOR-C Work Phone: [facility] 06-12-2024 08:06-0500 Diastolic blood pressure 80 mm[Hg] Deonte Baltes APPLIANCE SERVICE SUPERVISOR-C Work Phone: [facility] 06-12-2024 08:06-0500 Heart rate 57 /min Deonte Baltes APPLIANCE SERVICE SUPERVISOR-C Work Phone: [facility] 06-12-2024 08:06-0500 Respiratory rate 16 /min Deonte Baltes APPLIANCE SERVICE SUPERVISOR-C Work Phone: [facility] 06-12-2024 08:06-0500 SaO2% (BldA) [Mass fraction] 99 % Deonte Baltes APPLIANCE SERVICE SUPERVISOR-C Work Phone: [facility] 06-12-2024 08:06-0500 Systolic blood pressure 126 mm[Hg] Deonte Baltes APPLIANCE SERVICE SUPERVISOR-C Work Phone: [facility] 01-11-2023 08:49-0400 Body temperature 98.8 [degF] APPLIANCE SERVICE SUPERVISOR-C Deonte Baltes APPLIANCE SERVICE SUPERVISOR Work Phone: [facility] 01-11-2023 08:49-0400 Diastolic blood pressure 74 mm[Hg] APPLIANCE SERVICE SUPERVISOR-C Deonte Baltes APPLIANCE SERVICE SUPERVISOR Work Phone: [facility] 01-11-2023 08:49-0400 Heart rate 73 /min APPLIANCE SERVICE SUPERVISOR-C Deonte Baltes APPLIANCE SERVICE SUPERVISOR Work Phone: [facility] 01-11-2023 08:49-0400 Respiratory rate 18 /min APPLIANCE SERVICE SUPERVISOR-C Deonte Baltes APPLIANCE SERVICE SUPERVISOR Work Phone: [facility] 01-11-2023 08:49-0400 SaO2% (BldA) [Mass fraction] 95 % APPLIANCE SERVICE SUPERVISOR-C Deonte Baltes APPLIANCE SERVICE SUPERVISOR Work Phone: [facility] 01-11-2023 08:49-0400 Systolic blood pressure 118 mm[Hg] APPLIANCE SERVICE SUPERVISOR-C Deonte Baltes APPLIANCE SERVICE SUPERVISOR Work Phone: [facility] 01-10-2023 10:140400 Body height 182.88 cm APPLIANCE SERVICE SUPERVISOR-C Deonte Baltes APPLIANCE SERVICE SUPERVISOR Work Phone: [facility] 01-10-2023 10:140400 Body mass index (BMI) [Ratio] 26.6 kg/m2 APPLIANCE SERVICE SUPERVISOR-C Deonte Baltes APPLIANCE SERVICE SUPERVISOR Work Phone: [facility] 01-10-2023 10:140400 Body weight 89 kg APPLIANCE SERVICE SUPERVISOR-C Deonte Baltes APPLIANCE SERVICE SUPERVISOR Work Phone: [facility] Encounters Encounter Date Encounter Type Care Provider Facility Start: 01-21-2025 End: 01-21-2025 ambulatory Deonte Baltes APPLIANCE SERVICE SUPERVISOR-C Work Phone: -Laboratory Start: 01-21-2025 End: 01-21-[address] Victor Hugo Antoine MD -Laboratory Work Phone: Start: 01-21-2025 End: 01-21-2025 ambulatory Victor Hugo Antoine Facility:[facility] Start: 11-14-2024 End: 11-14-2024 ambulatory Deonte Baltes APPLIANCE SERVICE SUPERVISOR-C Work Phone: -Laboratory Start: 11-14-2024 End: 11-14-[address] Victor Hugo Antoine MD -Laboratory Work Phone: Start: 11-14-2024 End: 11-14-2024 ambulatory Deonte Baltes APPLIANCE SERVICE SUPERVISOR Facility:[facility] Start: 08-18-2024 End: 08-18-2024 ambulatory Deonte Baltes APPLIANCE SERVICE SUPERVISOR-C Work Phone: [facility] Work Phone: Start: 08-18-2024 End: 08-18-[address] Victor Hugo Antoine MD -Laboratory Work Phone: Start: 08-18-2024 End: 08-18-2024 ambulatory Deonte Baltes Facility:[facility] Start: 07-24-[address] Adis Copeland on DO -Radiation Oncology Start: 07-24-2024 End: 07-24-[address] Adis Bush [facility] Work Phone: Start: 07-24-2024 End: 07-24-2024 ambulatory Adis Bush Facility:[facility] Start: 07-17-2024 End: 07-17-[address] Adis Bush [facility] Work Phone: Start: 07-17-2024 End: 07-17-2024 ambulatory Adis Bush Facility:[facility] Start: 07-10-2024 End: 07-10-[address] Adis Bush [facility] Work Phone: Start: 07-10-2024 End: 07-10-2024 ambulatory Adis Bush Facility:[facility] Start: 07-03-2024 End: 07-03-[address] Adis Bush [facility] Work Phone: Start: 07-03-2024 End: 07-03-2024 ambulatory Adis Bush Facility:[facility] Start: 06-26-2024 End: 06-26-[address] Adis Bush [facility] Work Phone: Start: 06-26-2024 End: 06-26-2024 ambulatory Adis Bush Facility:[facility] Start: 06-19-2024 End: 06-19-[address] Adis Bush [facility] Work Phone: Start: 06-19-2024 End: 06-19-2024 ambulatory Adis Bush Facility:[facility] Start: 06-12-2024 End: 06-12-[address] Adis Bush [facility] Work Phone: Start: 06-12-2024 End: 06-12-2024 ambulatory Adis Bush Facility:[facility] Start: 05-23-2024 End: 05-27-2024 ambulatory DEONTE BELLE WHOLESALE ACCOUNT EXECUTIVE-SURGICAL INSTRUMENT TECHNICIAN Facility:[facility] Start: 05-23-2024 End: 05-27-2024 Encounter for general adult medical examination without abnormal findings DEONTE BELLE WHOLESALE ACCOUNT EXECUTIVE-SURGICAL INSTRUMENT TECHNICIAN Facility:[facility] Start: 05-23-2024 End: 05-27-2024 Outreach Lab DEONTE BELLE WHOLESALE ACCOUNT EXECUTIVE-SURGICAL INSTRUMENT TECHNICIAN [facility] Start: 05-22-2024 ambulatory Adis Bush Facility: [facility] Start: 05-22-2024 Non-patient / Non-visit Dr. Adis burris [facility] Start: 05-08-2024 End: 05-08-[address] Adis Bush [facility] Work Phone: Start: 05-08-2024 ambulatory Adis Bush Facility: [facility] Start: 05-08-2024 Non-patient / Non-visit Dr. Adis burris [facility] Start: 05-08-2024 End: 05-08-2024 ambulatory Adis Bush Facility:[facility] Start: 04-07-2024 End: 04-07-2024 ambulatory Adis Bush Facility:[facility] Start: 03-28-2024 End: 03-28-2024 ambulatory Madie Point Roberts Facility:[facility] Start: 05-28-2023 End: 05-28-2023 ambulatory [facility] Work Phone: Start: 05-28-2023 End: 05-28-2023 Patient encounter procedure [facility] Work Phone: Start: 03-30-2023 End: 04-04-2023 ambulatory DEONTE BELLE WHOLESALE ACCOUNT EXECUTIVE-SURGICAL INSTRUMENT TECHNICIAN Facility:[facility] Start: 03-30-2023 End: 04-04-2023 Encounter for general adult medical examination without abnormal findings DEONTE BELLE APRN-SURGICAL INSTRUMENT TECHNICIAN Facility:[facility] Start: 03-27-2023 End: 03-27-2023 ambulatory [facility] Start: 02-26-2023 End: 02-26-2023 ambulatory APPLIANCE SERVICE SUPERVISOR-C Deonte Belle APPLIANCE SERVICE SUPERVISOR Work Phone: [facility] Work Phone: Start: 02-26-2023 End: 02-26-2023 Patient encounter procedure APPLIANCE SERVICE SUPERVISOR-C Deonte Belle APPLIANCE SERVICE SUPERVISOR Work Phone: [facility] Work Phone: Start: 01-10-2023 End: 01-11-2023 Evaluation and management of inpatient APPLIANCE SERVICE SUPERVISOR-C Deonte Belle APPLIANCE SERVICE SUPERVISOR Work Phone: [facility]-Medical Surgical 3 Work Phone: Start: 01-10-2023 End: 01-11-2023 observation encounter APPLIANCE SERVICE SUPERVISOR-C Deonte Belle APPLIANCE SERVICE SUPERVISOR Work Phone: [facility] Work Phone: Start: 01-02-2023 End: 01-02-2023 Non-patient / Non-visit APPLIANCE SERVICE SUPERVISOR-C Deonte Belle APPLIANCE SERVICE SUPERVISOR Work Phone: [facility] Work Phone: Start: 11-16-2022 End: 11-16-2022 ambulatory [facility] Work Phone: Start: 11-16-2022 End: 11-16-2022 Patient encounter procedure [facility], Specimen Work Phone: Start: 09-16-2022 End: 09-17-2022 ambulatory DEONTE JULIENSCARLETT WHOLESALE ACCOUNT EXECUTIVE-SURGICAL INSTRUMENT TECHNICIAN Facility:[facility] Start: 09-16-2022 End: 09-16-2022 Patient encounter procedure DEONTE YOSHI WHOLESALE ACCOUNT EXECUTIVE-SURGICAL INSTRUMENT TECHNICIAN [facility] Procedures Date Procedure Procedure Detail Performing Clinician Start: 01-21-2025 Plain X-ray abdomen Demetristushar Belle APPLIANCE SERVICE SUPERVISOR-C Work Phone: Start: 01-21-2025 Assay of prostate sp ecific antigen total Deonte Belle APPLIANCE SERVICE SUPERVISOR-C Work Phone: Comment on above: This test was perfor med using the [employer] tPSA method. Measured values of a patient sample can vary depending on the testing procedure used. PSA values determined on patient samples by different testing procedures cannot be used interchangeably. If there is a change in PSA assays while monitoring therapy, sequential testing should be performed to confirm baseline values. Start: 11-14-2024 Assay of prostate sp ecific antigen total Deonte Belle APPLIANCE SERVICE SUPERVISOR-C Work Phone: Comment on above: This test was perfor med using the [employer] tPSA method. Measured values of a patient sample can vary depending on the testing procedure used. PSA values determined on patient samples by different testing procedures cannot be used interchangeably. If there is a change in PSA assays while monitoring therapy, sequential testing should be performed to confirm baseline values. Start: 08-18-2024 Assay of prostate sp ecific antigen total Deonte Belle APPLIANCE SERVICE SUPERVISOR-C Work Phone: Comment on above: This test was perfor med using the [employer] tPSA method. Measured values of a patient sample can vary depending on the testing procedure used. PSA values determined on patient samples by different testing procedures cannot be used interchangeably. If there is a change in PSA assays while monitoring therapy, sequential testing should be performed to confirm baseline values. Start: 05-22-2024 Assay of prostate sp ecific antigen total Deonte Balscarlett APPLIANCE SERVICE SUPERVISOR-C Work Phone: Comment on above: This test was perfor med using the TPSA assay method for the[employer] chemistry system. Values obtained with differentassay methods cannot be used interchangably.When changing PSA assays in the course of monitoring apatient, additional sequential testing should be carriedout to confirm baseline values. Start: 05-08-2024 MRI of pelvis with contrast Deonte Belle APPLIANCE SERVICE SUPERVISOR-C Work Phone: Start: 05-08-2024 Creatinine blood Deonte melchor APPLIANCE SERVICE SUPERVISOR-C Work Phone: Start: 04-15-2024 Positron emission tomography with computed tomography Deonte Belle APPLIANCE SERVICE SUPERVISOR-C Work Phone: Start: 01-10-2023 Lap Robotic Prostate ctomy (Not Applicable) APPLIANCE SERVICE SUPERVISOR-C Deonte Belle APPLIANCE SERVICE SUPERVISOR Work Phone: Plan of Treatment Date Care Activity Detail Author Start: 01-11-2023 Patient discharge [facility] Start: 01-10-2023 Following clinical pathway protocol [facility] Start: 01-10-2023 Anes xtrprtl lwr abd w/urinary tract rad prstect ANESTH REMOVAL OF PROSTATE [facility] Start: 01-10-2023 Laps prostect retropubic rad w/nrv sparing robot LAPS SURG [id number] RPBIC RAD [facility] Start: 01-10-2023 Deep breathing and coughing exercises [facility] Start: 01-10-2023 Incentive spirometry [facility] Start: 01-10-2023 Oxygen therapy [facility] Start: 01-10-2023 Provision of activity privileges [facility] Start: 01-10-2023 Admission procedure [facility] Start: 01-10-2023 Measuring intake and output [facility] Start: 01-10-2023 Patient education [facility] Start: 01-10-2023 Taking patient vital signs [facility] Start: 01-10-2023 Vital signs measurements [facility] Start: 01-10-2023 End: 01-10-2023 [facility] Electrocardiographic procedure [facility] Patient referral [facility] Work Phone: Payers Date Payer Category Payer Self-pay 2022 Unknown [id number] 2020 Unknown [id number] 1965 Unknown [id number] 2.16.8 [id number] 1965 Unknown [id number] .16.8 [id number] 1965 Unknown [id number] .16.8 [id number] Unknown [id number] 2.16.8 [id number] Unknown [id number] 2.16.8 40.1.522274.3.579.2.462 Unknown [id number] 2.16.8 40.1.548642.3.579.2.462 Unknown [id number] 2.16.8 40.1.196375.3.579.2.462 Unknown [id number] 2.16.8 40.1.330014.3.579.2.462 Unknown [id number] 2.16.8 40.1.425576.3.579.2.462 Unknown [id number] 2.16.8 40.1.261256.3.579.2.462 Unknown [id number] 2.16.8 40.1.552798.3.579.2.462 Unknown [id number] 2.16.8 40.1.655415.3.579.2.462 Unknown [id number] 2.16.8 40.1.694468.3.579.2.462 Unknown [id number] 2.16.8 40.1.918970.3.579.2.462 Unknown [id number] 2.16.8 40.1.123384.3.579.2.462 Unknown [id number] 2.16.8 40.1.097904.3.579.2.462 Unknown [id number] 2.16.8 40.1.595927.3.579.2.462 Unknown [id number] 2.16.8 40.1.445833.3.579.2.462 Unknown [id number] 2.16.8 40.1.764909.3.579.2.462 Social History Date Type Detail Facility Start: 10-12-2020 End: 04-07-2024 Tobacco smoking status Never smoked tobacco (finding) [facility] Start: 1965 Sex Assigned At Male A [facility] Start: 12-27-2022 End: 12-27-2022 Tobacco smoking status VTIS Unknown if ever smoked [facility] Sexual Orientation [facility] Start: 05-15-2020 End: 08-21-2024 Sex Male (finding) [facility] NEGATED: Highlighted row - - -[facility] Work Phone: Goals Date Patient Goal Desired Activity /State Functional Status Date Assessment Result Facility 01-11-2023 Functional status Ambulates;Up ad michelle [facility] Work Phone: NEGATED: Highlighted row Functional performance Functional status health issues are not documented [facility] Work Phone: Mental Status Date Assessment Result Facility 01-11-2023 Cognitive function Voice/Name [facility] Work Phone: NEGATED: Highlighted row Cognitive function [Interpretation] Cognitive status health issues are not documented [facility] Work Phone: Clinical Notes 01-02-2023 to 01-22-2025 Note Date & Type Note Facility 01-22-2025 Radiology Diagnostic study note [facility] Imaging Services [address] [place], [place] [id number] Abdomen Single View MR#: [id number] Acct: [id number] Name: KARAN WHITE Rep #: [id number] : 1965 M 59 From: Jatinder Bryan MD PCP: ROSELYN Mcguire Status: REG CLI Study:Abdomen Single View Date of Exam: 01/21/25 Exam# [id number] Ordering Dr: Abigail Antoine MD PROCEDURE: ABDOMEN SINGLE VIEW 01/21/2025 REASON FOR EXAM: CALCULUS OF KIDNEY TECHNIQUE: Procedure Code: RADABD Modality: DX Procedure: ABDOMEN SINGLE VIEW COMPARISON: None FINDINGS: There is a nonobstructive bowel gas pattern. There are no abnormal soft tissue calcifications project over either renal outline or along the path of either ureter. There is mild dextroscoliosis of the thoracolumbar spine. RAD/Abdomen Single View IMPRESSION: No evidence of acute abdominal pathology. Reading Location: [id number] CC: ROSELYN Belle; Dr. Victor Hugo Antoine MD ~ Public Improvement Inspector: Signed [facility] Work Phone: 07-24-2024 Evaluation note Diagnosis Onset Date Resolution Biochemically recurrent castration-sensitive adenocarcinoma of prostate acute July 24, 2024 7:45am [facility] Work Phone: 1(667) 833-203101-23-2025 Evaluation note* Diagnosis Onset Date Resolution Status Admit Date Biochemically recurrent castration-sensitive adenocarcinoma of prostate acute Janua ry 2024 7:40am Biochemically recurrent castration-sensitive adenocarcinoma of prostate acute Janua ry 2024 7:43am Biochemically recurrent castration-sensitive adenocarcinoma of prostate acute Febru valeria 2024 7:37am Biochemically recurrent castration-sensitive adenocarcinoma of prostate acute Febru valeria 2024 7:51am Biochemically recurrent castration-sensitive adenocarcinoma of prostate acute Febru valeria 2024 7:51am Biochemically recurrent castration-sensitive adenocarcinoma of prostate acute Febru valeria 2024 7:52am Biochemically recurrent castration-sensitive adenocarcinoma of prostate acute July 24, 2024 7:45am [facility] Work Phone: 1(436) 425-270708-24-2023 Progress note Author Victor Hugo Antoine [facility] January 11, 2023 7:42am Note Date/Time January 11, 2023 7: 42am [facility] System Medical Records Department [address] [place] [id number] Progress Note - Urology 01/11/23 0742 MR#: [id number] Acct: [id number] Name: KARAN WHITE Rep #:[id number] : 1965 57 From: Victor Hugo Antoine MD PCP: ROSELYN Mcguire Status:ADM SWAPNA Location: [address] Subjective Subjective Status post radical prostatectomy patient [...] Cosigner Signature (if applicable): CC: ~ Signed [facility] Work Phone: 1(932) 815-929708-23-2023 Procedure [facility] 01-10-2023 Discharge summary Author Victor Hugo Antoine [facility] January 10, 2023 11:46am Note Date/Time January 10, 2023 11 :46am [facility] Health System Medical Records Department [address] [place] [id number] Instructions for Home/Discharge Instructions 01/10/23 1146 MR#: [id number] Acct: [id number] Name: KARAN WHITE Rep #:[id number] : 1965 57 From: Victor Hugo Antoine MD PCP: JEET McguireC [place] [facility] [place] Instructions Diet Discharge Diet: No restrictions, Light diet - advance as tolerated and Soft diet Activity Discharge Activity: Return to Normal Activity Return to work on:: 02/14/23September shower in (days): 1 Lifting Restrictions: No lifting over 15 pounds for 6 weeks Dressing / Incision Catheter: Anglin to leg bag and Anglin to large bag Drain: Plato Follow Up Care Please Follow Up With: [...] 7 Days Qty: 14 0RF Continued omega 3-imy-qno-fish oil [Fish Oil] 1,200 (144-216) mg capsule [...] Hugo Antoine MD>Victor Hugo Antoine MD CC: ROSALIE-C Deonte Belle ~ Signed [facility] Work Phone: 1(287) 704-108108-23-2023 History and physical note Author Victor Hugo Antoine [facility] January 10, 2023 11:45am Note Date/Time January 10, 2023 11 :46am [facility] Medical Records Department [address] [place] [address] History & Physical Exam 01/10/23 1145 MR#: [id number] Acct: [id number] Name: KARAN WHITE Rep #:[id number] : 1965 57 From: Victor Hugo Antoine MD PCP: ROSELYN Mcguire Status:[facility] Location: [place] [address] HPI - General General Date of Service: 01/10/23 Chief Complaint: Prostate cancer HPI Narrative KARAN WHITE, is a 57 M who presents for radical prostatectomy for prostate cancer [facility] Medical History (Updated 01/10/23 @ 11:[address] Victor Hugo Antoine MD) Non-smoker Wears glasses Home Medications liberty (Zingiber officinalis) 250 mg capsule 250 mg PO DAILY 12/27/22 [History Last Taken Unknown] ginseng 100 mg capsule 100 mg PO DAILY 12/27/22 [History Last Taken Unknown] omega 4-wds-heu-fish oil 1,200 mg (144 mg-216 mg) capsule [...] Antoine MD> Cosigner Signature (if applicable): CC: ROSELYN Belle; Dr. Victor Hugo Antoine MD~ Signed [facility] Work Phone: 1(891) 773-825308-15-2023 Hospital Discharge instructionsAmbulatory Orders* 12 Lead EKG [[facility]] Time Frame: 01/02/23, Location: None Selected Additional Instructions Implant Used?: [facility] Work Phone: Consult note Author Amelie Eldridge [facility] January 11, 2023 12:28pm Note Date/Time January 11, 2023 12 :16pm [facility] Medical Records Department [address] [place] [address] Counseling Note - Pharmacy 01/11/23 1215 MR#: [id number] Acct: [id number] Name: KARAN WHITE Rep #:[id number] : 1965 57 From: Amelie Eldridge PCP: Deonte Baltes, APPLIANCE SERVICE SUPERVISOR-C Status:ADM SWAPNA Y Location: MS3 [id number] Pharmacy [facility] Pharmacy Service has performed discharge medication reconciliation [...] resolved. The patient was counselled by Annette Ca, Juan Luis Candidate Medications at Discharge Home Medications liberty (Zingiber officinalis) 250 mg capsule 250 mg PO DAILY 12/27/22 ginseng 100 mg capsule 100 mg PO DAILY 12/27/22 omega 1-ora-rue-fish oil 1,200 mg (144 mg-216 mg) capsule [...] Signature (if applicable): Date CC: ~ Signed [facility] Work Phone: Evaluation + Plan note Future Appointments Appointment Date:09/26/2022 07:00:00 AM Scheduled Provider:DEONTE BELLE APRN-DIEGO Location:[facility] Appointment Type: Wellness [facility] Evaluation + Plan note Future Appointments Appointment Date:12/02/2024 07:00:00 AM Scheduled Provider:DEONTE BELLE Location:[facility] Appointment Type:PC [facility] Evaluation noteNo assessment information available [facility] Work Phone: Hospital course Narrative No data available for this section [facility] Hospital Discharge instructions No data available for this section [facility] Instructions* Name Dates Details Instructions not documented [facility] Work Phone: Progress note No data available for this section [facility] Reason for referral (narrative)No [facility] for [facility] Work [facility]: Summary Purpose Family History No Family History Records Found Mother Name Dates Details Family history of Healthy ad ult Status:Active Father Name Dates Details Family history of diabetes m ellitus(V18.0, Z83.3) Status:Active Advance Directives No Advanced Directives Records Found Advance Directive Response Recorded Date/ Time Living Will No December 27, 2022 12:33pm Power of Senior Technical Support Engineer No December 27 12:33pm Advance Directive Response Recorded Date/ Time Living Will No December 27, 2022 11:33am Power of Senior Technical Support Engineer No December 27 11:33am Chief Complaint and [...] adenocarcinoma of prostate July 24, 2024 7:45am Chief Complaint Admit Date OTV July 24, 2024 7:45 am xrt July 24, 2024 8:00 am Reason for Visit Admit Date 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 July 24, 2024 7:45am Additional Source Comments (unrecognized sect ion and content) No Status Records FoundNo Status Records FoundNo Status Records FoundNo Status Records FoundNo Status Records Found INFORMATION SOURCE (unrecogn ized section and content) DATE CREATED AUTHOR 11/14/2017 [facility] DATE CREATED AUTHOR AUTHOR'S ORGANIZ ATION 03/28/2023 [facility] DATE CREATED AUTHOR AUTHOR'S ORGANIZ ATION 04/09/2023 [facility] DATE CREATED AUTHOR AUTHOR'S ORGANIZ ATION 05/31/2024 [facility] DATE CREATED AUTHOR AUTHOR'S ORGANIZ ATION [facility]/30/20[facility] Patient Care team informatio n (unrecognized section and content) Team Status: Active Member Role Status Dates Deonte Belle APPLIANCE SERVICE SUPERVISOR, APPLIANCE SERVICE SUPERVISOR-C Primary Care Provider Active Team Status: Active Member Role Status Dates Deonte Belle APPLIANCE SERVICE SUPERVISOR, APPLIANCE SERVICE SUPERVISOR-C Primary Care Provider Active Start: May 08, 2024 Dr. Adis Bush DO Attending Provider Active Start: May 08, 2024 Dr. Adis Bush DO Referring Provider Active Start: May 08, 2024 Team Status: Inactive Member Role Status Dates Deonte Belle APPLIANCE SERVICE SUPERVISOR, APPLIANCE SERVICE SUPERVISOR-C Primary Care Provider Active Start: May 08, 2024 End: May 08, 2024 Dr. Adis Bush DO Attending Provider Active Start: May 08, 2024 End: May 08, 2024 Dr. Adis Bush DO Referring Provider Active Start: May 08, 2024 End: May 08, 2024 Team Status: Active Member Role Status Dates Deonte Belle APPLIANCE SERVICE SUPERVISOR, APPLIANCE SERVICE SUPERVISOR-C Primary Care Provider Active Start: May 22, 2024 Dr. Adis Bush DO Attending Provider Active Start: May 22, 2024 Dr. Adis Bush DO Referring Provider Active Start: May 22, 2024 Team Status: Inactive Member Role Status Dates Deonte Belle APPLIANCE SERVICE SUPERVISOR, APPLIANCE SERVICE SUPERVISOR-C Primary Care Provider Active Start: June 12, 2024 End: June 12, 2024 Dr. Adis Bush DO Attending Provider Active Start: June 12, 2024 End: June 12, 2024 Dr. Adis Bush DO Referring Provider Active Start: June 12, 2024 End: June 12, 2024 Team Status: Inactive Member Role Status Dates Deonte Belle APPLIANCE SERVICE SUPERVISOR, APPLIANCE SERVICE SUPERVISOR-C Primary Care Provider Active Start: June 19, 2024 End: June 19, 2024 Dr. Adis Bush DO Attending Provider Active Start: June 19, 2024 End: June 19, 2024 Dr. Adis Bush DO Referring Provider Active Start: June 19, 2024 End: June 19, 2024 Team Status: Inactive Member Role Status Dates Deonte Belle APPLIANCE SERVICE SUPERVISOR, APPLIANCE SERVICE SUPERVISOR-C Primary Care Provider Active Start: June 26, 2024 End: June 26, 2024 Dr. Adis Bush DO Attending Provider Active Start: June 26, 2024 End: June 26, 2024 Dr. Adis Bush DO Referring Provider Active Start: June 26, 2024 End: June 26, 2024 Team Status: Inactive Member Role Status Dates Deonte Belle APPLIANCE SERVICE SUPERVISOR, APPLIANCE SERVICE SUPERVISOR-C Primary Care Provider Active Start: July 03, 2024 End: July 03, 2024 Dr. Adis Bush DO Attending Provider Active Start: July 03, 2024 End: July 03, 2024 Dr. Adis Bush DO Referring Provider Active Start: July 03, 2024 End: July 03, 2024 Team Status: Inactive Member Role Status Dates Deonte Belle APPLIANCE SERVICE SUPERVISOR, APPLIANCE SERVICE SUPERVISOR-C Primary Care Provider Active Start: July 10, 2024 End: July 10, 2024 Dr. Adis Bush DO Attending Provider Active Start: July 10, 2024 End: July 10, 2024 Dr. Adis Bush DO Referring Provider Active Start: July 10, 2024 End: July 10, 2024 Team Status: Inactive Member Role Status Dates Deonte Belle APPLIANCE SERVICE SUPERVISOR, APPLIANCE SERVICE SUPERVISOR-C Primary Care Provider Active Start: July 17, 2024 End: July 17, 2024 Dr. Adis Bush DO Attending Provider Active Start: July 17, 2024 End: July 17, 2024 Dr. Adis Bush DO Referring Provider Active Start: July 17, 2024 End: July 17, 2024 Team Status: Inactive Member Role Status Dates Deonte Belle APPLIANCE SERVICE SUPERVISOR, APPLIANCE SERVICE SUPERVISOR-C Primary Care Provider Active Start: July 24, 2024 End: July 24, 2024 Dr. Adis Bush DO Attending Provider Active Start: July 24, 2024 End: July 24, 2024 Dr. Adis Bush DO Referring Provider Active Start: July 24, 2024 End: July 24, 2024 Team Status: Active Member Role Status Dates Deonte Belle APPLIANCE SERVICE SUPERVISOR, APPLIANCE SERVICE SUPERVISOR-C Primary Care Provider Active Start: July 24, 2024 Dr. Adis Bush DO Attending Provider Active Start: July 24, 2024 Dr. Adis Bush DO Referring Provider Active Start: July 24, 2024 Team Status: Inactive Member Role Status Dates Deonte Belle APPLIANCE SERVICE SUPERVISOR, APPLIANCE SERVICE SUPERVISOR-C Primary Care Provider Active Start: August 18, 2024 End: August 18, 2024 Dr. Victor Hugo Antoine MD Attending Provider Active Start: August 18, 2024 End: August 18, 2024 Dr. Victor Hugo Antoine MD Referring Provider Active Start: August 18, 2024 End: August 18, 2024 Team Status: Inactive Member Role Status Dates Deonte Belle APPLIANCE SERVICE SUPERVISOR, APPLIANCE SERVICE SUPERVISOR-C Primary Care Provider Active Madie Yen Attending Provider, Referring Provide r Active Team Status: Inactive Member Role Status Dates Deonte Belle APPLIANCE SERVICE SUPERVISOR, APPLIANCE SERVICE SUPERVISOR-C Primary Care Provider Active Dr. Victor Hugo Antoine MD Attending Provider, Referr ing Provider Active Team Status: Inactive Member Role Status Dates Dr. Victor Hugo Antoine MD Attending Provider, Referr ing Provider Active Team Status: Active Member Role Status Dates Deonte Belle APPLIANCE SERVICE SUPERVISOR, APPLIANCE SERVICE SUPERVISOR-C Primary Care Provider Active Dr. Michelle Rizzo MD Attending Provider Active Dr. Victor Hugo Antoine MD Referring Provider Active Team Status: Inactive Member Role Status Dates Dr. Victor Hugo Antoine MD Admit Provid er, Attending Provider, Referring Provider Active Deonte Belle APPLIANCE SERVICE SUPERVISOR, APPLIANCE SERVICE SUPERVISOR-C Primary Care Provider Active Team Status: Active Member Role/Relationship Status Dates Deonte Belle APPLIANCE SERVICE SUPERVISOR, APPLIANCE SERVICE SUPERVISOR-C Primary Care Provider Active Team Status: Inactive Member Role/Relationship Status Dates Deonte Belle APPLIANCE SERVICE SUPERVISOR, APPLIANCE SERVICE SUPERVISOR-C Primary Care Provider Active Start: July 24, 2024 End: July 24, 2024 Dr. Adis Bush DO Attending Provider Active Start: July 24, 2024 End: July 24, 2024 Dr. Adis Bush DO Referring Provider Active Start: July 24, 2024 End: July 24, 2024 Team Status: Active Member Role/Relationship Status Dates Deonte Belle APPLIANCE SERVICE SUPERVISOR, APPLIANCE SERVICE SUPERVISOR-C Primary Care Provider Active Start: July 24, 2024 Dr. Adis Bush DO Attending Provider Active Start: July 24, 2024 Dr. Adis Bush DO Referring Provider Active Start: July 24, 2024 Team Status: Inactive Member Role/Relationship Status Dates Deonte Belle APPLIANCE SERVICE SUPERVISOR, APPLIANCE SERVICE SUPERVISOR-C Primary Care Provider Active Start: August 18, 2024 End: August 18, 2024 Dr. Victor Hugo Antoine MD Attending Provider Active Start: August 18, 2024 End: August 18, 2024 Dr. Victor Hugo Antoine MD Referring Provider Active Start: August 18, 2024 End: August 18, 2024 Team Status: Inactive Member Role/Relationship Status Dates Deonte Belle APPLIANCE SERVICE SUPERVISOR, APPLIANCE SERVICE SUPERVISOR-C Primary Care Provider Active Start: November 14, 2024 End: November 14, 2024 Dr. Victor Hugo Antoine MD Attending Provider Active Start: November 14, 2024 End: November 14, 2024 Dr. Victor Hugo Antoine MD Referring Provider Active Start: November 14, 2024 End: November 14, 2024 Team Status: Inactive Member Role/Relationship Status Dates Deonte Belle APPLIANCE SERVICE SUPERVISOR, APPLIANCE SERVICE SUPERVISOR-C Primary Care Provider Active Start: November 14, 2024 End: November 14, 2024 Dr. Victor Hugo Antoine MD Attending Provider Active Start: November 14, 2024 End: November 14, 2024 Dr. Victor Hugo Antoine MD Referring Provider Active Start: November 14, 2024 End: November 14, 2024 Team Status: Inactive Member Role/Relationship Status Dates Deonte Belle APPLIANCE SERVICE SUPERVISOR, APPLIANCE SERVICE SUPERVISOR-C Primary Care Provider Active Start: January 21, 2025 End: January 21, 2025 Dr. Victor Hugo Antoine MD Attending Provider Active Start: January 21, 2025 End: January 21, 2025 Dr. Victor Hugo Antione MD Referring Provider Active Start: January 21, 2025 End: January 21, 2025 Goals (unrecognized section and content) Goals may [...] BE BASED ON THE PRIMARY CLINICAL RECORDS. [employer] provides no warranty or guarantee of the accuracy or completeness of information in this document.
[2025-05-20 14:10] LABS: PSA,Total- Diagnostic < 0.02 ng/mL (0.00-4.00)
== END | disposition home or self-care (01) ==
PROVIDERS: PCP Nurse Practitioner Primary Care; Referring Provider Urology; Visit Provider Urology
DX: C61 Malignant neoplasm of prostate (principal)
CPT/HCPCS: 36415; 84153